=== PATIENT | female | born 1965 | race Caucasian/White ===

== ENCOUNTER → 2019-02-22 10:44 | Outpatient (CLI) | payer OTHER, SELFPAY ==
--- NOTE | 2019-02-22 10:48 | DI.RAD.S_ITS ---
PROCEDURE: XR KNEE LT 3V INDICATIONS: l knee pain TECHNIQUE: 3 views of the knee were acquired. COMPARISON: None. FINDINGS: Bones: No fractures or dislocations. No suspicious bony lesions. An enthesophyte at the quadriceps tendon insertion is present. Soft tissues: There is a small joint effusion. No suspicious soft tissue calcifications. IMPRESSION: No acute osseous abnormality or significant degenerative changes of the left knee. Dictated by: Scott Aguirre M.D. on 02/22/2019 at 10:32 Approved by: Scott Aguirre M.D. on 02/22/2019 at 10:33
== END ==
PROVIDERS: PCP Family Medicine; Visit Provider Physician Assistant
DX: M25.562 Pain in left knee (principal)
CPT/HCPCS: 73562

== ENCOUNTER 2019-05-01 18:44 | Observation (INO) | payer OTHER, SELFPAY ==
[2019-05-01 18:49] VITALS: BP 158/97; PULSE 90; RESP 17; TEMP 36.8; O2SAT 100; BMI 25.5
--- NOTE | 2019-05-01 19:15 | ED.ABDPAIN ---
HPI - Abdominal Pain General Chief Complaint: Abdominal Pain Stated Complaint: diverticulitis lots of pain Time Seen by Provider: 05/01/19 19:08 Source: patient Mode of arrival: Ambulatory Limitations: no limitations History of Present Illness HPI narrative: 53-year-old female here for evaluation of left-sided abdominal pain and cramping. She has a history of diverticulitis. States this feels like diverticulitis. She has never had surgery for this in the past. States the symptoms started yesterday of a can on worse today. 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 Talked with her employer who prescribed her antibiotics. States she took those this morning but vomited afterwards. Since then has had nausea and vomiting and dry heaving worsening pain. Also is having some bloody stool with mucus. No urinary symptoms. Related Data Home Medications Medication Instructions Recorded Confirmed clonazepam 1 mg PO #0 08/15/17 02/22/19 risperidone [Risperdal] 0.25 mg PO #0 08/15/17 02/22/19 Previous Rx's Medication Instructions Recorded fluoxetine [Prozac] 40 mg PO QDAY #90 cap 07/02/17 Allergies Allergy/AdvReac Type Severity Reaction Status Date / Time sulfamethoxazole AdvReac Mild N/V Verified 05/01/19 18:49 [From Bactrim] trimethoprim [From Bactrim] AdvReac Mild N/V Verified 05/01/19 18:49 Review of Systems Constitutional Constitutional: Reports fatigue, Reports fever(s) and Reports malaise Cardiovascular Cardiovascular: Denies chest pain and Denies dyspnea Respiratory Respiratory: Denies dyspnea Gastrointestinal Gastrointestinal: Reports abdominal pain, Reports change in stool character, Reports nausea and Reports vomiting Genitourinary Genitourinary: Denies dysuria and Denies vaginal discharge Musculoskeletal Musculoskeletal: Denies myalgias and Denies arthralgias Integumentary/Breasts Skin/Breast: Denies lesions and Denies rash Neurologic Neurologic: Denies behavioral changes Psychiatric Psychiatric: Denies behavioral changes Endocrine Endocrine: Reports fatigue Hematologic/Lymphatic Hematologic/Lymphatic: Denies easy bleeding and Denies easy bruising Patient History Medical History Depression (11/05/13) Diverticulitis (Inactive) Social History Smoking Status: Never smoker alcohol intake frequency: 0-2 drinks per day Substance Use Type: does not use Exam Initial Vital Signs Initial Vital Signs: Vital Signs Temperature 98.3 F 05/01/19 18:49 Pulse Rate 90 05/01/19 18:49 Respiratory Rate 17 05/01/19 18:49 Blood Pressure 158/97 H 05/01/19 18:49 Pulse Oximetry 100 05/01/19 18:49 Const General: cooperative and No comfortable (Uncomfortable) Orientation: alert, awake and oriented x3 HENMT Head: normal to inspection and normocephalic Resp Effort & Inspection: normal respiratory effort Auscultation: clear to auscultation bilaterally Cardio Rate: regular rate Rhythm: regular rhythm GI Inspection: non-distended Palpation: soft and tender (Left abdomen with rebound) Skin Lesions: no lesions Rashes: no rashes Neuro General: alert, awake and oriented x3 Cognition: normal cognition Speech: speech normal Extrem General: normal to inspection and capillary refill normal Psych Appearance: grossly normal and well kempt Course Orders Ordered: ED Orders 05/01/19 19:15 CT abdomen pelvis w con Stat 05/01/19 19:36 Complete Blood Count AUTO DIFF Stat Comprehensive Metabolic Panel Stat Lactate (Lactic Acid) Stat Lipase Stat 05/01/19 20:50 EKG-12 Lead Stat Hydromorphone HCl (Dilaudid) 1 mg IV Q6HR PRN PRN Reason: Pain, Severe (7-10) Ciprofloxacin (Cipro) 400 mg in 200 mls @ 200 mls/hr IV NOW [facility] Last Infusion: 05/01/19 22:30 Dose: 200 mls/hr Documented by: Admin: 05/01/19 21:26 Dose: 200 mls/hr Documented by: ENID Sodium Chloride (Normal Saline 0.9%) 1,000 mls @ 125 mls/hr IV CONT ANDREW Last Admin: 05/01/19 23:30 Dose: 125 mls/hr Documented by: SARAH Ciprofloxacin (Cipro) 400 mg in 200 mls @ 200 mls/hr IV NOW [facility] Metronidazole (Flagyl) 250 mg in 50 mls @ 100 mls/hr IV Q6H [facility] Naloxone HCl (Narcan) 0.2 mg IV Q2MIN PRN PRN Reason: Opiate Reversal Ondansetron HCl (Zofran) 4 mg IV Q6HR ANDREW Discontinued Medications Hydromorphone HCl (Dilaudid) 1 mg IV NOW ONE Stop: 05/01/19 19:15 Last Admin: 05/01/19 19:57 Dose: 1 mg Documented by: ENID Hydromorphone HCl (Dilaudid) 0.5 mg IV NOW ONE Stop: 05/01/19 20:58 Last Admin: 05/01/19 21:05 Dose: 0.5 mg Documented by: ENID Sodium Chloride (Normal Saline 0.9%) 1,000 mls @ 1,000 mls/hr IV BOLUS ONE Stop: 05/01/19 20:13 Last Infusion: 05/01/19 20:59 Dose: 0 mls/hr Documented by: Admin: 05/01/19 19:57 Dose: 1,000 mls/hr Documented by: ENID Metronidazole (Flagyl) 500 mg in 100 mls @ 100 mls/hr IV NOW ONE Stop: 05/01/19 21:56 Last Infusion: 05/01/19 22:10 Dose: 0 mls/hr Documented by: Admin: 05/01/19 21:05 Dose: 100 mls/hr Documented by: ENID Sodium Chloride (Normal Saline 0.9%) 1,000 mls @ 125 mls/hr IV CONT ANDREW Ondansetron HCl (Zofran) 4 mg IV NOW ONE Stop: 05/01/19 19:15 Last Admin: 05/01/19 19:57 Dose: 4 mg Documented by: ENID Ondansetron HCl (Zofran) 4 mg IV NOW ONE Stop: 05/01/19 22:24 Last Admin: 05/01/19 22:27 Dose: 4 mg Documented by: ENID Vital Signs Vital signs: Vital Signs - 8 hr 05/01/19 18:49 05/01/19 21:17 Temperature 98.3 F 99.4 F Pulse Rate 90 70 Respiratory Rate 17 20 Blood Pressure 158/97 H Blood Pressure [Right Arm] 132/88 Pulse Oximetry 100 MDM - Abdominal Pain Lab Data Attestation: I reviewed the patient's lab results. Result diagrams: 05/01/19 19:36 05/01/19 19:36 Labs: Lab Results 1105/01/19 05/01/19 Range/Units 19:36 19:36 19:36 WBC 9.1 (4.5-11.0) X10^3/uL RBC 4.41 (4.0-5.2) X10^6/uL Hgb 14.5 (12.0-16.0) g/dL Hct 42.4 (36-46) % MCV 96.2 (80-100) fL MCH 32.8 (26-34) PG MCHC 34.1 (30-36) % RDW 12.7 (11.6-14.8) % Plt Count 153 (150-400) X10^3/uL Neut % (Auto) 75.4 H (50-75) % Lymph % (Auto) 13.3 L (25-40) % Jasper % (Auto) 9.5 (3-14) % Eos % (Auto) 0.8 L (2-4) % Baso % (Auto) 1.0 (0-2) % Neut # (Auto) 6800 (7492-7626) /uL Lymph # (Auto) 1200 (5252-5901) /uL Jasper # (Auto) 900 (0-900) /uL Eos # (Auto) 100 (0-450) /uL Baso # (Auto) 100 (0-100) /uL Sodium 140 (137-145) mmol/L Potassium 3.7 (3.4-5.1) mmol/L Chloride 108 H (98-107) mmol/L Carbon Dioxide 23 (22-32) mmol/L BUN 13 (7-17) mg/dL Creatinine 0.80 (0.52-1.04) mg/dL Estimated GFR > 60.0 (>60) mL/min BUN/Creatinine Ratio 16.3 (6-22) Glucose 114 H (70-100) mg/dL Lactate 2.7 H (0.7-2.1) mmol/L Calcium 9.8 (8.4-10.2) mg/dL Total Bilirubin 1.0 (0.2-1.3) mg/dL AST 31 (14-36) IU/L ALT 22 (<35) IU/L Alkaline Phosphatase 82 (38-126) U/L Total Protein 7.4 (6.3-8.2) g/dL Albumin 4.5 (3.5-5.0) g/dL Globulin 2.9 (1.7-4.1) g/dL Albumin/Globulin Ratio 1.6 (1.0-2.8) Lipase 135 (23-300) U/L Point of care testing: Urine Dip Bedside Urine Glucose Negative Bedside Urine Bilirubin - Negative Bedside Urine Ketone +/- 5 Urine Specific [place] 1.005 Bedside Urine Occult Blood - Negative Bedside Urine pH 8.0 Bedside Urine Protein - Negative Bedside Urine Urobilinogen - Negative Bedside Urine Nitrite - Negative Bedside Urine Leukocytes +/- [address] scan - abdomen: Radiologist's impression: [address] [address] [address] Scan Report Signed Patient: Kamila Chawla [facility]#: [id number] : 1965Acct:[id number] Age/Sex: 53 / FDate of Service: 05/01/19 Loc: ED Accession Number: [id number] Procedure: CT abdomen pelvis w con Ordering Provider: Shravan Pak D.O. PROCEDURE: CT ABDOMEN PELVIS W CON INDICATIONS: Left-sided abdominal pain TECHNIQUE: After the administration of intravenous contrast, 5 mm thick sections acquired from the diaphragm to the symphysis. 5 mm coronal and sagittal reformats were acquired. For radiation dose reduction, the following was used: automated exposure control, adjustment of mA and/or kV according to patient size. COMPARISON: [facility], CT, ABDOMEN/PELVIS WITH CONTRAST, 03/27/2016, 20:51. FINDINGS: Image quality: Excellent. ABDOMEN: Lung bases: Lung bases are clear. Heart size is normal. Solid organs: Liver is normal in size and enhancement. Gallbladder is unremarkable. Biliary system is non dilated. Pancreas enhances normally. Spleen is normal in size and enhancement. No adrenal nodules. Kidneys demonstrate normal size and enhancement, without hydronephrosis. Peritoneum and bowel: Moderate distal sigmoid colon acute diverticulitis. This is in a similar location to the diverticulitis seen on CT from 2016. There is mild to moderate diverticulosis. The inflamed area demonstrates bowel wall thickening. No pneumoperitoneum. Small volume of free fluid in the pelvis. No loculated fluid collection to suggest abscess. Nodes and vessels: No retroperitoneal or mesenteric adenopathy by size criteria. Aorta and inferior vena cava are normal in size. Miscellaneous: Tiny fat-containing periumbilical hernia. PELVIS: Genitourinary: Bladder wall thickness is normal. Uterus is unremarkable. Miscellaneous: No inguinal hernias or adenopathy. Bones: No suspicious bony lesions. Mild degenerative change most pronounced at the L4-L5 level. No vertebral body compression fractures. IMPRESSION: 1. Moderate uncomplicated acute sigmoid colon diverticulitis. There is a bowel wall thickening. -Recommend colonoscopy on resolution of acute inflammatory change to exclude underlying mass. 2. No abscess. Small volume of free fluid. Comment: Findings were discussed with Shravan Pak M.D. at the time of dictation. Dictated by: Humberto Johnson M.D. on 05/01/2019 at 20:42 Approved by: Humberto Johnson M.D. on 05/01/2019 at 20:50 MDM Narrative Medical decision making narrative: Patient with left-sided diverticulitis seen on the CT scan. Does have slightly elevated lactate but a normal white blood cell count. Her physical exam is consistent with diverticulitis. Given her discomfort and her nausea and vomiting she was given IV antibiotics here in the ER. There is no signs of surgical pathology on the CT scan. I do feel given her vomiting that she should be admitted for IV antibiotics. Discussed the case with ARLETTE Lomas night hospitalist who will admit for further evaluation treatment. Discussed the diagnosis with the patient and the need for admission the expressed understanding and agreement. Discharge Plan Departure Patient Disposition: Admitted as Observation Clinical Impression: Diverticulitis Qualifiers: Diverticulitis site: large intestine Diverticulitis bleeding: without bleeding Diverticulitis complication: without perforation or abscess Qualified Code(s): K57.32 - Diverticulitis of large intestine without perforation or abscess without bleeding Discharge Date/Time: 05/01/19 22:30 Admit Date/Time: 05/01/19 21:55 Admit Provider: Abi Lomas
[2019-05-01 19:54] LABS: Add Manual Diff / Slide Review NO; Basophils Absolute Auto 100 /uL (0-100); Eosinophils Absolute Auto 100 /uL (0-450); Eosinophils Percent Auto 0.8 % (2-4); Hematocrit 42.4 % (36-46); Hemoglobin 14.5 g/dL (12.0-16.0); Lymphocytes Absolute Auto 1200 /uL (1100-4500); Lymphocytes Percent Auto 13.3 % (25-40); Mean Corpuscular HGB Conc 34.1 % (30-36); Mean Corpuscular Hemoglobin 32.8 PG (26-34); Mean Corpuscular Volume 96.2 fL (80-100); Monocytes Absolute Auto 900 /uL (0-900); Monocytes Percent Auto 9.5 % (3-14); Neutrophils Absolute Auto 6800 /uL (1500-7000); Neutrophils Percent Auto 75.4 % (50-75); Platelet Count 153 X10^3/uL (150-400); Red Blood Cell Count 4.41 X10^6/uL (4.0-5.2); Red Cell Distribution Width 12.7 % (11.6-14.8); White Blood Cell Count 9.1 X10^3/uL (4.5-11.0)
[2019-05-01] MEDS: HYDROMORPHONE 1 MG INJ IV (19:57)
[2019-05-01] MEDS: ONDANSETRON 4 MG/2 ML INJ IV ×2 (19:57→22:27)
[2019-05-01] MEDS: SODIUM CHLORIDE 0.9% 1,000 ML 1000 ML IV (19:57)
[2019-05-01 20:06] LABS: Lactate (Lactic Acid) 2.7 mmol/L (0.7-2.1)
[2019-05-01 20:07] LABS: Alanine Aminotransferase 22 IU/L (<35); Albumin 4.5 g/dL (3.5-5.0); Albumin Globulin Ratio 1.6 (1.0-2.8); Alkaline Phosphatase 82 U/L (38-126); Aspartate Aminotransferase 31 IU/L (14-36); BUN Creatinine Ratio 16.3 (6-22); Blood Urea Nitrogen 13 mg/dL (7-17); Calcium 9.8 mg/dL (8.4-10.2); Carbon Dioxide 23 mmol/L (22-32); Chloride 108 mmol/L (98-107); Estimated Glomerular Filt Rate > 60.0 mL/min (>60); Globulin 2.9 g/dL (1.7-4.1); Glucose 114 mg/dL (70-100); HEMOLYSIS 39 (0-50); Lipase 135 U/L (23-300); Potassium 3.7 mmol/L (3.4-5.1); Sodium 140 mmol/L (137-145); Total Protein 7.4 g/dL (6.3-8.2)
[2019-05-01] MEDS: metroNIDAZOLE 500 MG/100 ML PIGGYBACK 100 MG IV (21:05)
[2019-05-01] MEDS: HYDROMORPHONE 0.5 MG INJ IV (21:05)
[2019-05-01 21:17] VITALS: BP 132/88; PULSE 70; RESP 20; TEMP 37.4
[2019-05-01] MEDS: CIPROFLOXACIN 400 MG/200 ML PIGGYBACK 200 MG IV (21:26)
[2019-05-01 21:50] LABS: Reflexed Lactate in 2 Hours Y
[2019-05-01 22:51] VITALS: BP 123/82; PULSE 99; RESP 21; TEMP 38.1; O2SAT 97
--- NOTE | 2019-05-01 22:52 | PC.NURSE ---
1045-Patient arrives from ER, alert and oriented, ambulated to bed w/standby assist. shoes and pants placed in belongings bag. 1053-MD at bedside.
[2019-05-01 23:08] VITALS: BP 123/83; PULSE 82; RESP 16; TEMP 37.7; O2SAT 96
[2019-05-01] MEDS: SODIUM CHLORIDE 0.9% 1,000 ML 125 ML IV (23:30)
[2019-05-01 23:33] VITALS: O2SAT 96
[2019-05-02] VITALS (7 sets, daily range): BP systolic 88–122; BP diastolic 50–75; PULSE 77–91; RESP 16–18; TEMP 37–38.8; O2SAT 96–97; BMI 26.2
--- NOTE | 2019-05-02 00:02 | P.HP_ITS ---
History of Present Illness History of Present Illness Date Patient Seen: 05/01/19 Time Patient Seen: 22:00 Chief complaint: diverticulitis lots of pain Narrative: Kamila Chawla is a pleasant 53 y.o. female with a history of diverticulitis and PTSD presents today with significant abdominal pain. She states she has had this for 6 previous episodes, exacerbated by stress. She describes the pain usually preceeding the passage of stool or air with a needle like sensation in the left lower quadrant, then becoming diffuse bilaterally. It is relieved when she passes stool or gas. Stated today, she started a course of cipro and flagyl and was not able to keep it down. She had a subjective fever, was unable to stay warm, denies chest pain, shortness of breath, had nausea, vomiting and dry heaves, she states a history of grief associated with her who committed suicide 8 months ago. 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 Patient History Medical History Depression (11/05/13) Diverticulitis (Inactive) Family & Social History Safety & Behavioral: Feels Safe in Current Yes Environment Been Physically Hurt or No Threatened By a Person Tobacco & Substance use: Smoking Status Never smoker alcohol intake frequency 0-2 drinks per day Substance Use Type does not use Meds Home Medications and Allergies Home Medications Medication Instructions Recorded Confirmed Type fluoxetine [Prozac] 40 mg PO QDAY #90 cap 07/02/17 02/22/19 Rx clonazepam 1 mg PO #0 08/15/17 02/22/19 History risperidone [Risperdal] 0.25 mg PO #0 08/15/17 02/22/19 History Allergies Allergy/AdvReac Type Severity Reaction Status Date / Time sulfamethoxazole AdvReac Mild N/V Verified 05/01/19 18:49 [From Bactrim] trimethoprim [From Bactrim] AdvReac Mild N/V Verified 05/01/19 18:49 Review of Systems Review of Systems ROS Unobtainable: All systems reviewed & are unremarkable except as noted in HPI and below Exam Vital Signs (past 8 hours): - 05/01/19 18:49 05/01/19 21:17 05/01/19 22:51 Temperature 98.3 F 99.4 F 100.5 F H Pulse Rate 90 70 99 H Respiratory Rate 17 20 21 Blood Pressure 158/97 H 123/82 Blood Pressure [Right Arm] 132/88 Pulse Oximetry 100 97 05/01/19 23:33 Temperature Pulse Rate Respiratory Rate Blood Pressure Blood Pressure [Right Arm] Pulse Oximetry 96 Oxygen Delivery Method Room Air Narrative Exam Narrative: Gen: Alert, oriented, well-developed 53 y.o. female, appears uncomfortable HEENT: normocephalic, atraumatic, conjunctiva clear, sclera non-icteric, oral mucosa pink and moist Neck: supple, full ROM Resp: Lungs CTA, non-labored breathing CV: RRR, no murmur or rubs Abd: soft, diffusely tender, normoactive BTs Skin: no lesions or rashes, dry and intact Neuro: Alert and oriented X 4 w/no focal deficits Extremities: moves all 4 extremities, is ambulatory, negative Kelton?s sign Psyche: mildly labile, otherwise normal mood and affect. Objective Labs Result Diagrams: 05/01/19 19:36 05/01/19 19:36 Labs: Laboratory Results - last 24 hr 05/01/19 05/01/19 05/01/19 19:36 19:36 19:36 WBC 9.1 RBC 4.41 Hgb 14.5 Hct 42.4 MCV 96.2 MCH 32.8 MCHC 34.1 RDW 12.7 Plt Count 153 Neut % (Auto) 75.4 H Lymph % (Auto) 13.3 L Sebastian % (Auto) 9.5 Eos % (Auto) 0.8 L Baso % (Auto) 1.0 Neut # (Auto) 6800 Lymph # (Auto) 1200 Sebastian # (Auto) 900 Eos # (Auto) 100 Baso # (Auto) 100 Sodium 140 Potassium 3.7 Chloride 108 H Carbon Dioxide 23 BUN 13 Creatinine 0.80 Estimated GFR > 60.0 BUN/Creatinine Ratio 16.3 Glucose 114 H Lactate 2.7 H Calcium 9.8 Total Bilirubin 1.0 AST 31 ALT 22 Alkaline Phosphatase 82 Total Protein 7.4 Albumin 4.5 Globulin 2.9 Albumin/Globulin Ratio 1.6 Lipase 135 05/01/19 22:19 WBC RBC Hgb Hct MCV MCH MCHC RDW Plt Count Neut % (Auto) Lymph % (Auto) Sebastian % (Auto) Eos % (Auto) Baso % (Auto) Neut # (Auto) Lymph # (Auto) Sebastian # (Auto) Eos # (Auto) Baso # (Auto) Sodium Potassium Chloride Carbon Dioxide BUN Creatinine Estimated GFR BUN/Creatinine Ratio Glucose Lactate 1.0 Calcium Total Bilirubin AST ALT Alkaline Phosphatase Total Protein Albumin Globulin Albumin/Globulin Ratio Lipase Assessment & Plan Assessment & Plan narrative: Kamila Chawla will be placed in observation for IV antibiotic administration for a diverticulitis flare. 1. Acute diverticulitis present on admission * She will be placed on IV cipro 400 mg bid and metronidiazole 500 mg q 6 hours * Clear liquid diet, if she does not tolerate, she will need to be NPO * Advance as tolerated, if able to take po meds in the next 1-2 days, will discharge * Pain control with IV dilaudid 1 mg prn 2. Sleep disorder * Continue home dose of clonazapam 1 mg at hs. Patient is placed in observation as her stay is not anticipated to exceed 2 midnights. FEN: IV NS at 125 ml/hour,clears, chemistries in the am. VTE Prophylaxis: bilateral SCDs Disposition: likely discharge to home Code status: Full code Admission time: 55 minutes Meds reconciled: Yes Time Spent With Patient Time with patient: 15-24 minutes Quality VTE Deep Vein Thrombosis/Pulmonary Embolism Present on Admission: No
[2019-05-02] MEDS: HYDROMORPHONE 1 MG INJ IV ×4 (00:27→21:48)
[2019-05-02] MEDS: metroNIDAZOLE 250 MG/50 ML PIGGYBACK 100 MG IV (05:08)
[2019-05-02 05:32] LABS: Add Manual Diff / Slide Review NO; Basophils Absolute Auto 0 /uL (0-100); Basophils Percent Auto 0.2 % (0-2); Eosinophils Absolute Auto 0 /uL (0-450); Eosinophils Percent Auto 0.3 % (2-4); Hematocrit 34.7 % (36-46); Hemoglobin 12.1 g/dL (12.0-16.0); Lymphocytes Absolute Auto 1300 /uL (1100-4500); Lymphocytes Percent Auto 16.6 % (25-40); Mean Corpuscular HGB Conc 34.9 % (30-36); Mean Corpuscular Hemoglobin 33.6 PG (26-34); Mean Corpuscular Volume 96.1 fL (80-100); Monocytes Absolute Auto 900 /uL (0-900); Monocytes Percent Auto 11.6 % (3-14); Neutrophils Absolute Auto 5500 /uL (1500-7000); Neutrophils Percent Auto 71.3 % (50-75); Platelet Count 123 X10^3/uL (150-400); Red Blood Cell Count 3.62 X10^6/uL (4.0-5.2); Red Cell Distribution Width 12.9 % (11.6-14.8); White Blood Cell Count 7.7 X10^3/uL (4.5-11.0)
[2019-05-02 05:45] LABS: BUN Creatinine Ratio 11.1 (6-22); Blood Urea Nitrogen 10 mg/dL (7-17); Calcium 8.5 mg/dL (8.4-10.2); Carbon Dioxide 25 mmol/L (22-32); Chloride 108 mmol/L (98-107); Estimated Glomerular Filt Rate > 60.0 mL/min (>60); Glucose 105 mg/dL (70-100); HEMOLYSIS < 15 (0-50); Potassium 3.7 mmol/L (3.4-5.1); Sodium 139 mmol/L (137-145)
[2019-05-02] MEDS: SODIUM CHLORIDE 0.9% 1,000 ML 1000 ML IV ×2 (08:33→10:45)
--- NOTE | 2019-05-02 09:16 | PC.NURSE ---
Addendum entered by Estefany Nieves R.N. 05/02/19 13:17: 2nd NS 1 litre bolus completed at 1300, bolus slightly delayed due to timing of antibiotics. At 1250, BP taken for 122/72, pulse 80. Pt had another scant blood-tinged mucous passed through rectum. Total of 2 for this shift. Addendum entered by Estefany Nieves R.N. 05/02/19 10:38: Per Dr. Savage Verbal order in pt's room at 1025, keep NPO. Aware of scant mucous passed through rectum that is blood tinged. Pt remains asymptomatic with ambulation. Does c/o feeling cold/chilled. Addendum entered by Estefany Nieves R.N. 05/02/19 09:26: At 0825, Dr. Diez also aware of BP of 93/54 this AM. The documented BP of 88/50 was also reported by night RN that the pt had her BP taken on her upper arm while lying on her side. Will continue to monitor. Original Note: Day Shift- Update given to Dr. Diez at 0825 regarding 0750 Oral Temp of 100.5, no new orders at this time. Request to change schedule Zofran to PRN as pt c/o mild intermittent nausea previously refusing anti-emetics. At 0840, IVF bolus NS 1 litre X1 started per Dr. Diez eMAR order and verbal order at 0825. Pt does c/o feeling cold, chills, LLQ abd pain aching 4-5/10 with tenderness to LLQ abd more than to across entire abd. Pt states having abd bloating. Bowel tones present, quiet but frequent, passing flatus. During night having scant mucous BM. States having intermittent needle-like sharp pain to LLQ abd when gas moving through. Pt originally ordered Clear liquid diet for breakfast, pt states not wanting anything but small amount of water. Per Dr. Diez at 0915, pt is to remain NPO awaiting surgical consult. Pt refused Calf SCD's, encouraged ankle pump exercises. OOB with SBA with steady gait, denies dizziness or light-headedness. No other voiced concerns, Call light within reach. Pt feels very tired this AM, states is being awoken every hour or two. Explained morning time can be busier with assessments and will try to give pt rest periods.
[2019-05-02] MEDS: SODIUM CHLORIDE 0.9% 1,000 ML 125 ML IV ×2 (09:37→21:54)
--- NOTE | 2019-05-02 09:38 | P.CONS_ITS ---
History of Present Illness Consult details Date Patient Seen: 05/02/19 Time Patient Seen: 10:41 Chief complaint: diverticulitis lots of pain Reason for consult: Diverticulitis Requesting provider: Tammie Diez Narrative: This is a 53-year-old woman with history of sigmoid diverticulitis, with at least 5 episodes in the past, requiring antibiotic treatment. She started having a new episode a few days ago, and yesterday it became quite severe. She started vomiting which prompted her to come into the ER. In the ER she had a CT scan which showed non complicated sigmoid diverticulitis. She has received 1 dose of Cipro and 3 doses of Flagyl. She continues to have significant focal right lower quadrant pain, chills, and low-grade temps. Her last fever was 100.5 this morning. Her blood pressure is on the lower side with systolics in the 90s. However she is not significantly tachycardic. She is pas sing gas and some thin mucousy stool. She denies dysuria, myalgias, or subjective fevers. ROS: Ten system review is unremarkable other than as mentioned in the HPI. PE: GENERAL: Lying in bed under multiple blankets, rigoring. Appears stated age. Answers questions promptly and appropriately. Vital signs noted. HENT: Normocephalic, atraumatic. Hearing intact. Oral mucosa is pink and moist. EYES: Conjunctiva pink, sclera white, no periorbital swelling. CARDIOVASCULAR: Regular rate. No pedal edema. RESPIRATORY: Normal respiratory rate, breathing comfortably on room air. GASTROINTESTINAL: Abdomen soft and non-distended; Focal TTP in LLQ; no diffuse peritoneal signs GENITALURINARY: No flank tenderness. MUSCULOSKELETAL: Equal tone and mass bilaterally. SKIN: Warm, dry, soft, appropriate color for ethnicity. No other lesions, rashes, or wounds. NEURO: Alert and Oriented X 3. No gross sensory deficits, or cognitive issues. PSYCH: Appropriate affect and mood. [facility] Medical History Depression (11/05/13) Diverticulitis (Inactive) Social History household members: family Smoking Status: Never smoker Meds Home Medications and Allergies Home Medications Medication Instructions Recorded Confirmed Type clonazepam 1 mg PO BEDTIME #0 08/15/17 05/02/19 History Allergies Allergy/AdvReac Type Severity Reaction Status Date / Time sulfamethoxazole AdvReac Mild N/V Verified 05/01/19 18:49 [From Bactrim] trimethoprim [From Bactrim] AdvReac Mild N/V Verified 05/01/19 18:49 Exam Vital Signs (past 8 hours): - 05/02/19 03:23 05/02/19 07:55 05/02/19 08:00 Temperature 98.9 F 100.5 F H Pulse Rate 83 91 H Respiratory Rate 16 16 Blood Pressure 88/50 L 93/54 L Pulse Oximetry 96 97 97 Oxygen Delivery Method Room Air Oxygen Flow Rate 0 Objective Labs Result Diagrams: 05/02/19 05:03 05/02/19 05:03 Labs: Laboratory Results - last 24 hr 05/01/19 05/01/19 05/01/19 19:36 19:36 19:36 WBC 9.1 RBC 4.41 Hgb 14.5 Hct 42.4 MCV 96.2 MCH 32.8 MCHC 34.1 RDW 12.7 Plt Count 153 Neut % (Auto) 75.4 H Lymph % (Auto) 13.3 L [place] % (Auto) 9.5 Eos % (Auto) 0.8 L Baso % (Auto) 1.0 Neut # (Auto) 6800 Lymph # (Auto) 1200 [place] # (Auto) 900 Eos # (Auto) 100 Baso # (Auto) 100 Sodium 140 Potassium 3.7 Chloride 108 H Carbon Dioxide 23 BUN 13 Creatinine 0.80 Estimated GFR > 60.0 BUN/Creatinine Ratio 16.3 Glucose 114 H Lactate 2.7 H Calcium 9.8 Total Bilirubin 1.0 AST 31 ALT 22 Alkaline Phosphatase 82 Total Protein 7.4 Albumin 4.5 Globulin 2.9 Albumin/Globulin Ratio 1.6 Lipase 135 Nasal Screen MRSA (PCR) 05/01/19 05/02/19 05/02/19 22:19 01:50 05:03 WBC 7.7 RBC 3.62 L Hgb 12.1 Hct 34.7 L MCV 96.1 MCH 33.6 MCHC 34.9 RDW 12.9 Plt Count 123 L Neut % (Auto) 71.3 Lymph % (Auto) 16.6 L [place] % (Auto) 11.6 Eos % (Auto) 0.3 L Baso % (Auto) 0.2 Neut # (Auto) 5500 Lymph # (Auto) 1300 [place] # (Auto) 900 Eos # (Auto) 0 Baso # (Auto) 0 Sodium Potassium Chloride Carbon Dioxide BUN Creatinine Estimated GFR BUN/Creatinine Ratio Glucose Lactate 1.0 Calcium Total Bilirubin AST ALT Alkaline Phosphatase Total Protein Albumin Globulin Albumin/Globulin Ratio Lipase Nasal Screen MRSA (PCR) Negative for mrsa 05/02/19 05:03 WBC RBC Hgb Hct MCV MCH MCHC RDW Plt Count Neut % (Auto) Lymph % (Auto) [place] % (Auto) Eos % (Auto) Baso % (Auto) Neut # (Auto) Lymph # (Auto) [place] # (Auto) Eos # (Auto) Baso # (Auto) Sodium 139 Potassium 3.7 Chloride 108 H Carbon Dioxide 25 BUN 10 Creatinine 0.90 Estimated GFR > 60.0 BUN/Creatinine Ratio 11.1 Glucose 105 H Lactate Calcium 8.5 Total Bilirubin AST ALT Alkaline Phosphatase Total Protein Albumin Globulin Albumin/Globulin Ratio Lipase Nasal Screen MRSA (PCR) Assessment & Plan Assessment and plan (1) Diverticulitis: Qualifiers: Diverticulitis bleeding: without bleeding Diverticulitis complication: without perforation or abscess Diverticulitis site: large intestine Qualified Code(s): K57.32 - Diverticulitis of large intestine without perforation or abscess without bleeding Current visit: Yes Status: Acute Assessment & Plan narrative: This is a 53 yo woman with history of diverticulitis x 5. Now admitted with new onset uncomplicated diverticulitis. She has received one dose of cipro and three doses of flagyl, without much improvement. She is currently stable, but her mild hypotension and rigors are concerning. She had plans for elective surgery with Dr. Weeks at [facility] sometime in the future, which we will still hopefully be able to get her to. However, I have discussed with her the potential for a progressive worsening c ourse, which may require more aggressive treatment on this admission, which may include increasing antibiotics, repeating CT scan, and possibly surgical intervention. Plan: Change dosing of cipro to Q12 and give another dose now If no clinical signs of improvement, switch to zosyn If no improvement with zosyn, repeat CT scan with IV contrast, and consider diagnostic laparoscopy Flagyl can be Q8 Keep NPO, IV fluids Pain meds PRN ok for DVT ppx closely monitor BP, HR 40 minutes were spent face to face with the patient. More than 50% of the time was spent in counseling and co-ordination of care regarding her diverticulitis history, plans for elective surgery, and potential for acute worsening and need for aggressive treatment on this admission. Time Spent With Patient Time with patient: Greater than 35 minutes
--- NOTE | 2019-05-02 10:10 | PM.PN.1 ---
Subjective Subjective Date Patient Seen: 05/02/19 Interval history: Kamila Chawla is a pleasant 53-year-old female with a past medical history significant for 6 previous episodes of diverticulitis who presented with abrupt onset left-sided abdominal pain with intractable nausea and vomiting. The patient is lying in bed febrile with mild rigors. She has left-sided lower quadrant pain with mild guarding. She has intermittent nausea but has not had recurrence of vomiting. She has low normal BP and ordered another 2 L IV fluid boluses. She is passing flatus and has had bloody loose stool. She denies headache, shortness of breath, chest pain, dysuria, diarrhea or constipation. She is voiding and eliminating without difficulty. She is up minimally, ambulating without assistance. Exam Vital Signs (past 8 hours): - 05/02/19 03:23 05/02/19 07:55 05/02/19 08:00 Temperature 98.9 F 100.5 F H Pulse Rate 83 91 H Respiratory Rate 16 16 Blood Pressure 88/50 L 93/54 L Pulse Oximetry 96 97 97 Oxygen Delivery Method Room Air Oxygen Flow Rate 0 Narrative Exam Narrative: General: Middle aged female lying in bed and in no acute distress, appears acutely ill with mild rigors, well-developed, well-nourished, appropriately interactive. HEENT: Normocephalic, atraumatic. External ears without defect. Pupils equal, round, and reactive to light. Anicteric sclerae, moist conjunctivae, and no lid lag. Oropharynx free of erythema and cobble stoning with moist mucosa. Neck: Supple with full range of motion. No lymphadenopathy or thyromegaly. Cardiovascular: Regular rate and rhythm without murmurs, rubs, or gallops appreciated Pulmonary: Clear to auscultation bilaterally without crackles, wheezes, or rhonchi. Normal respiratory effort with no use of accessory muscles. Abdomen: Soft, bowel sounds present, diffuse tenderness especially in LLQ with voluntary guarding, nondistended. No hepatosplenomegaly or masses appreciated. Extremities: No clubbing, cyanosis, or edema. Skin: Normal temperature, turgor, and texture; no rash, ulcers, or subcutaneous nodules appreciated. Neurological: Cranial nerves grossly intact. Psychiatric: Depressed mood and normal affect. Tearful. Alert and oriented to person, place, and time. Objective Labs Result Diagrams: 05/02/19 17:55 05/02/19 05:03 Labs: Laboratory Results - last 24 hr 05/01/19 05/01/19 05/01/19 19:36 19:36 19:36 WBC 9.1 RBC 4.41 Hgb 14.5 Hct 42.4 MCV 96.2 MCH 32.8 MCHC 34.1 RDW 12.7 Plt Count 153 Neut % (Auto) 75.4 H Lymph % (Auto) 13.3 L [place] % (Auto) 9.5 Eos % (Auto) 0.8 L Baso % (Auto) 1.0 Neut # (Auto) 6800 Lymph # (Auto) 1200 [place] # (Auto) 900 Eos # (Auto) 100 Baso # (Auto) 100 Sodium 140 Potassium 3.7 Chloride 108 H Carbon Dioxide 23 BUN 13 Creatinine 0.80 Estimated GFR > 60.0 BUN/Creatinine Ratio 16.3 Glucose 114 H Lactate 2.7 H Calcium 9.8 Total Bilirubin 1.0 AST 31 ALT 22 Alkaline Phosphatase 82 Total Protein 7.4 Albumin 4.5 Globulin 2.9 Albumin/Globulin Ratio 1.6 Lipase 135 Nasal Screen MRSA (PCR) 05/01/19 05/02/19 05/02/19 22:19 01:50 05:03 WBC 7.7 RBC 3.62 L Hgb 12.1 Hct 34.7 L MCV 96.1 MCH 33.6 MCHC 34.9 RDW 12.9 Plt Count 123 L Neut % (Auto) 71.3 Lymph % (Auto) 16.6 L [place] % (Auto) 11.6 Eos % (Auto) 0.3 L Baso % (Auto) 0.2 Neut # (Auto) 5500 Lymph # (Auto) 1300 [place] # (Auto) 900 Eos # (Auto) 0 Baso # (Auto) 0 Sodium Potassium Chloride Carbon Dioxide BUN Creatinine Estimated GFR BUN/Creatinine Ratio Glucose Lactate 1.0 Calcium Total Bilirubin AST ALT Alkaline Phosphatase Total Protein Albumin Globulin Albumin/Globulin Ratio Lipase Nasal Screen MRSA (PCR) Negative for mrsa 05/02/19 05:03 WBC RBC Hgb Hct MCV MCH MCHC RDW Plt Count Neut % (Auto) Lymph % (Auto) [place] % (Auto) Eos % (Auto) Baso % (Auto) Neut # (Auto) Lymph # (Auto) [place] # (Auto) Eos # (Auto) Baso # (Auto) Sodium 139 Potassium 3.7 Chloride 108 H Carbon Dioxide 25 BUN 10 Creatinine 0.90 Estimated GFR > 60.0 BUN/Creatinine Ratio 11.1 Glucose 105 H Lactate Calcium 8.5 Total Bilirubin AST ALT Alkaline Phosphatase Total Protein Albumin Globulin Albumin/Globulin Ratio Lipase Nasal Screen MRSA (PCR) Assessment & Plan Assessment & Plan narrative: Kamila Chawla is a pleasant 53-year-old female with a past medical history significant for 6 previous episodes of diverticulitis who presented with abrupt onset left-sided abdominal pain with intractable nausea and vomiting. 1. Acute diverticulitis, present on admission. Active. -Patient reports this is her 6th flare since 2010. She is followed by GI at [facility], Dr. Hayes. -CT abdomen and pelvis with contrast demonstrated moderate uncomplicated acute sigmoid colon diverticulitis with bowel wall thickening and small volume of free fluid without abscess. Recommend colonoscopy on resolution of acute inflammatory change to exclude underlying mass. -WBC normal at 7.7 (patient had been on antibiotics outpatient. Continue to trend WBC and procalcitonin. Of note, blood cultures were not done in ED. -Continue ciprofloxacin 400 mg Iv every 12 hours and metronidiazole 500 mg IV every 6 hours. -Patient placed NPO for bowel rest. -Received 1 L bolus of normal saline x 1 in ED. Ordered another 2 L normal saline bolus for mild low normal BP. Continue IV fluid hydration with normal saline at 125 mL/hr. -Continue supportive care with pain control with hydromorphone 1 mg IV every 6 hours as needed and antiemetic with ondansetron 4 mg every 6 hours as needed. -Consulted general surgery, Dr. Danielle, for evaluation since patient has had 6 previous flares and is high risk of complication such as abscess or perforation. 2. Insomnia, chronic, present on admission. Stable. -Continue home clonazapam 1 mg daily at bedtime. Code status: Full code VTE Prophylaxis: bilateral SCDs Disposition: Patient likely to discharge to home after acute diverticulitis has been adequately treated and improving. Quality VTE Deep Vein Thrombosis/Pulmonary Embolism Present on Admission: No
[2019-05-02] MEDS: CIPROFLOXACIN 400 MG/200 ML PIGGYBACK 200 MG IV ×2 (10:47→21:51)
--- NOTE | 2019-05-02 11:05 | CM.DANOTE ---
Discharge Planning/Care Management DCP: assessment: case received, EMR reviewed. Discussed case in Team Rounds. Pt is a 53 year old female who admitted to care of hospitalist team last night. Payer: [facility] PCP: Kamila Fitzgerald Consulting: Dr. Borjas/[facility]. Pt has history of sigmoid diverticulitis and Dr. Diez stated that pt is planning to have a scheduled bowel resection within the next 6 weeks. She is currently being treated medically for acute diverticulitis. P: check in with pt as plan unfolds to assist with any d/c needs that may arise. CM Discharge Assessment Start: 05/02/19 11:03 Freq: Status: Active Protocol: Document 05/02/19 11:03 ITV (Rec: 05/02/19 11:05 ITV [id number]) Discharge Planning Assessment Advance Directives? No Advance Directives on File No History Provided By Medical Record Prior Living Arrangements House Household Members family Independent with ADL's Yes Is patient alert and oriented? Yes Comment pt works as a nurse at [employer] Review Status In Process
[2019-05-02] MEDS: metroNIDAZOLE 500 MG/100 ML PIGGYBACK 100 MG IV ×3 (12:58→23:58)
[2019-05-02] MEDS: ONDANSETRON 4 MG/2 ML INJ IV (18:01)
[2019-05-02] MEDS: ACETAMINOPHEN 325 MG TABLET 650 MG PO (18:02)
[2019-05-02 18:25] LABS: Add Manual Diff / Slide Review NO; Basophils Absolute Auto 0 /uL (0-100); Basophils Percent Auto 0.4 % (0-2); Eosinophils Absolute Auto 0 /uL (0-450); Eosinophils Percent Auto 0.3 % (2-4); Hematocrit 34.8 % (36-46); Hemoglobin 11.7 g/dL (12.0-16.0); Lymphocytes Absolute Auto 1100 /uL (1100-4500); Lymphocytes Percent Auto 15.6 % (25-40); Mean Corpuscular HGB Conc 33.6 % (30-36); Mean Corpuscular Hemoglobin 32.7 PG (26-34); Mean Corpuscular Volume 97.2 fL (80-100); Monocytes Absolute Auto 700 /uL (0-900); Monocytes Percent Auto 10.1 % (3-14); Neutrophils Absolute Auto 5300 /uL (1500-7000); Neutrophils Percent Auto 73.6 % (50-75); Platelet Count 105 X10^3/uL (150-400); Red Blood Cell Count 3.58 X10^6/uL (4.0-5.2); Red Cell Distribution Width 12.5 % (11.6-14.8); White Blood Cell Count 7.2 X10^3/uL (4.5-11.0)
--- NOTE | 2019-05-02 20:38 | PC.NURSE ---
Addendum entered by Coni Hernandez R.N. 05/02/19 22:43: 2148-VSS, PRN Dilaudid administered for 8/10 pain. 2299-No falls or injuries as of this note. no emesis. report to noc RN. Original Note: 1500-Received report, bedside safety checks done. assumed care of patient. Assessment completed, patient A&Ox4. 1799-tylenol administered for temp 101.4, Zofran administered for nausea. Ice pack to back of neck for comfort. 2037-Temp 98.6f Oral. Adequate pain control.
[2019-05-03] VITALS (9 sets, daily range): BP systolic 98–138; BP diastolic 53–80; PULSE 64–85; RESP 16–18; TEMP 36.4–37.4; O2SAT 95–99
[2019-05-03] MEDS: ACETAMINOPHEN 325 MG TABLET 650 MG PO ×2 (01:11→15:38)
[2019-05-03 05:19] LABS: Add Manual Diff / Slide Review NO; Basophils Absolute Auto 0 /uL (0-100); Basophils Percent Auto 0.3 % (0-2); Eosinophils Absolute Auto 0 /uL (0-450); Eosinophils Percent Auto 0.7 % (2-4); Hematocrit 32.4 % (36-46); Hemoglobin 11.2 g/dL (12.0-16.0); Lymphocytes Absolute Auto 1100 /uL (1100-4500); Lymphocytes Percent Auto 18.1 % (25-40); Mean Corpuscular HGB Conc 34.6 % (30-36); Mean Corpuscular Hemoglobin 33.5 PG (26-34); Mean Corpuscular Volume 96.9 fL (80-100); Monocytes Absolute Auto 600 /uL (0-900); Monocytes Percent Auto 10.2 % (3-14); Neutrophils Absolute Auto 4200 /uL (1500-7000); Neutrophils Percent Auto 70.7 % (50-75); Platelet Count 101 X10^3/uL (150-400); Red Blood Cell Count 3.34 X10^6/uL (4.0-5.2); Red Cell Distribution Width 12.6 % (11.6-14.8)
[2019-05-03 05:31] LABS: BUN Creatinine Ratio 5.6 (6-22); Blood Urea Nitrogen 5 mg/dL (7-17); Calcium 8.5 mg/dL (8.4-10.2); Carbon Dioxide 25 mmol/L (22-32); Chloride 111 mmol/L (98-107); Estimated Glomerular Filt Rate > 60.0 mL/min (>60); Glucose 91 mg/dL (70-100); HEMOLYSIS < 15 (0-50); Magnesium 1.8 mg/dL (1.6-2.3); Potassium 3.8 mmol/L (3.4-5.1); Sodium 140 mmol/L (137-145)
[2019-05-03 05:47] LABS: Procalcitonin < 0.05 ng/mL (<0.5)
[2019-05-03] MEDS: metroNIDAZOLE 500 MG/100 ML PIGGYBACK 100 MG IV (05:59)
[2019-05-03] MEDS: HYDROMORPHONE 1 MG INJ IV ×2 (06:18→18:47)
[2019-05-03] MEDS: SODIUM CHLORIDE 0.9% 1,000 ML 125 ML IV (08:49)
--- NOTE | 2019-05-03 09:13 | PM.PN.1 ---
Subjective Subjective Date Patient Seen: 05/03/19 Time Patient Seen: 07:45 Interval history: Overall improving. One episode of chills during the night. Denies subjective fevers. Denies nausea. Says she feels better and would like to go home. Exam Vital Signs (past 8 hours): - 05/03/19 01:17 PST 05/03/19 05:07 05/03/19 08:01 Temperature 99.3 F 98.1 F 97.8 F Pulse Rate 85 75 76 Respiratory Rate 18 18 16 Blood Pressure 121/74 116/73 98/53 L Pulse Oximetry 99 99 95 Oxygen Delivery Method Room Air Oxygen Flow Rate 0 Narrative Exam Narrative: GENERAL: Resting comfortably in bed Appears stated age. Answers questions promptly and appropriately. Vital signs noted. HENT: Normocephalic, atraumatic. Hearing intact. Oral mucosa is pink and moist. EYES: Conjunctiva pink, sclera white, no periorbital swelling. CARDIOVASCULAR: Regular rate. No pedal edema. RESPIRATORY: Normal respiratory rate, breathing comfortably on room air. GASTROINTESTINAL: Abdomen soft and non-distended; mild focal TTP in LLQ; improved from yesterday GENITALURINARY: No flank tenderness. MUSCULOSKELETAL: Equal tone and mass bilaterally. SKIN: Warm, dry, soft, appropriate color for ethnicity. No other lesions, rashes, or wounds. NEURO: Alert and Oriented X 3. No gross sensory deficits, or cognitive issues. PSYCH: Appropriate affect and mood. Objective Labs Result Diagrams: 05/03/19 04:54 05/03/19 04:54 Labs: Laboratory Results - last 24 hr 05/02/19 05/03/19 05/03/19 17:55 04:54 04:54 WBC 7.2 6.0 RBC 3.58 L 3.34 L Hgb 11.7 L 11.2 L Hct 34.8 L 32.4 L MCV 97.2 96.9 MCH 32.7 33.5 MCHC 33.6 34.6 RDW 12.5 12.6 Plt Count 105 L 101 L Neut % (Auto) 73.6 70.7 Lymph % (Auto) 15.6 L 18.1 L [place] % (Auto) 10.1 10.2 Eos % (Auto) 0.3 L 0.7 L Baso % (Auto) 0.4 0.3 Neut # (Auto) 5300 4200 Lymph # (Auto) 1100 1100 [place] # (Auto) 700 600 Eos # (Auto) 0 0 Baso # (Auto) 0 0 Sodium Potassium Chloride Carbon Dioxide BUN Creatinine Estimated GFR BUN/Creatinine Ratio Glucose Calcium Magnesium Procalcitonin < 0.05 05/03/19 04:54 WBC RBC Hgb Hct MCV MCH MCHC RDW Plt Count Neut % (Auto) Lymph % (Auto) [place] % (Auto) Eos % (Auto) Baso % (Auto) Neut # (Auto) Lymph # (Auto) [place] # (Auto) Eos # (Auto) Baso # (Auto) Sodium 140 Potassium 3.8 Chloride 111 H Carbon Dioxide 25 BUN 5 L Creatinine 0.90 Estimated GFR > 60.0 BUN/Creatinine Ratio 5.6 L Glucose 91 Calcium 8.5 Magnesium 1.8 Procalcitonin Assessment & Plan Assessment and plan (1) Diverticulitis: Qualifiers: Diverticulitis bleeding: without bleeding Diverticulitis complication: without perforation or abscess Diverticulitis site: large intestine Qualified Code(s): K57.32 - Diverticulitis of large intestine without perforation or abscess without bleeding Current visit: Yes Status: Acute Assessment & Plan narrative: This is a 53 old woman with improving signs and symptoms of uncomplicated diverticulitis. Since increasing her Cipro and adding acetaminophen she is no longer having fevers and chills. Her labs continue to look good. Her exam is improved today. I think it is reasonable to advance her diet. The patient very much wants to go home. I have told her that if her primary doctor decides that she would like to send her home I would strongly cautioned that she return immediately if symptoms worsen, and that she carefully observe all instructions regarding taking her antibiotics and careful advancement of her diet. I would recommend that she stick around at least most of the day in order to advance her from clears to full liquid diet and to ensure that she will be able to take enough p.o. to keep herself hydrated and nutritionally replete at home. Plan: Advanced diet to clears Advance diet as tolerated beyond that Continue antibiotics for a total of 14 day course Follow-up in the next 2 weeks with a surgeon (she is welcome to see me or 1 of my partners, however she has a surgeon in [place] in that she already follows with and would like to continue to see) Time Spent With Patient Time with patient: 15-24 minutes Quality VTE Deep Vein Thrombosis/Pulmonary Embolism Present on Admission: No
--- NOTE | 2019-05-03 10:19 | PM.DS.1 ---
History of Present Illness History of Present Illness Date Patient Seen: 05/02/19 Chief complaint: diverticulitis lots of pain Narrative: Written by Abi LING: Kamila Chawla is a pleasant 53 y.o. female with a history of diverticulitis and PTSD presents today with significant abdominal pain. She states she has had this for 6 previous episodes, exacerbated by stress. She describes the pain usually preceeding the passage of stool or air with a needle like sensation in the left lower quadrant, then becoming diffuse bilaterally. It is relieved when she passes stool or gas. Stated today, she started a course of cipro and flagyl and was not able to keep it down. She had a subjective fever, was unable to stay warm, denies chest pain, shortness of breath, had nausea, vomiting and dry heaves, she states a history of grief associated with her who committed suicide 8 months ago. 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 Discharge Providers Provider Date of admission: 05/01/19 21:55 Primary care physician: Kamila Fitzgerald DO Consults: 05/02/19 09:21 Consult to General Surgery Routine Comment: Consulting Provider: Chloé Savage Reason for consultation: Diverticulitis Has provider been notified: Yes Discharge provider: Tammie Diez DO Summary Hospital Course Hospital Course: Kamila Chawla is a pleasant 53-year-old female with a past medical history significant for 6 previous episodes of diverticulitis who presented with abrupt onset left-sided abdominal pain with intractable nausea and vomiting. 1. Acute diverticulitis, present on admission. Active. -Patient reports this is her 6th flare since 2010. She is followed by GI at [facility], Dr. Hayes. -CT abdomen and pelvis with contrast demonstrated moderate uncomplicated acute sigmoid colon diverticulitis with bowel wall thickening and small volume of free fluid without abscess. Recommend colonoscopy on resolution of acute inflammatory change to exclude underlying mass. -WBC normal at 7.7 (patient had been on antibiotics outpatient. Continue to trend WBC and procalcitonin. Of note, blood cultures were not done in ED. -Continue ciprofloxacin 400 mg Iv every 12 hours and metronidiazole 500 mg IV every 6 hours. -Patient placed NPO for bowel rest. -Received 1 L bolus of normal saline x 1 in ED. Ordered another 2 L normal saline bolus for mild low normal BP. Continue IV fluid hydration with normal saline at 125 mL/hr. -Continue supportive care with pain control with hydromorphone 1 mg IV every 6 hours as needed and antiemetic with ondansetron 4 mg every 6 hours as needed. -Consulted general surgery, Dr. Danielle, for evaluation since patient has had 6 previous flares and is high risk of complication such as abscess or perforation. 2. Insomnia, chronic, present on admission. Stable. -Continue home clonazapam 1 mg daily at bedtime. Exam Vital Signs (past 8 hours): - 05/03/19 05:07 05/03/19 07:00 05/03/19 08:01 Temperature 98.1 F 97.8 F Pulse Rate 75 76 Respiratory Rate 18 16 Blood Pressure 116/73 98/53 L Pulse Oximetry 99 98 95 Oxygen Delivery Method Room Air Oxygen Flow Rate 0 Objective Labs Result Diagrams: 05/03/19 04:54 05/03/19 04:54 Labs: Laboratory Results - last 24 hr 05/02/19 05/03/19 05/03/19 17:55 04:54 04:54 WBC 7.2 6.0 RBC 3.58 L 3.34 L Hgb 11.7 L 11.2 L Hct 34.8 L 32.4 L MCV 97.2 96.9 MCH 32.7 33.5 MCHC 33.6 34.6 RDW 12.5 12.6 Plt Count 105 L 101 L Neut % (Auto) 73.6 70.7 Lymph % (Auto) 15.6 L 18.1 L [place] % (Auto) 10.1 10.2 Eos % (Auto) 0.3 L 0.7 L Baso % (Auto) 0.4 0.3 Neut # (Auto) 5300 4200 Lymph # (Auto) 1100 1100 [place] # (Auto) 700 600 Eos # (Auto) 0 0 Baso # (Auto) 0 0 Sodium Potassium Chloride Carbon Dioxide BUN Creatinine Estimated GFR BUN/Creatinine Ratio Glucose Calcium Magnesium Procalcitonin < 0.05 05/03/19 04:54 WBC RBC Hgb Hct MCV MCH MCHC RDW Plt Count Neut % (Auto) Lymph % (Auto) Hale % (Auto) Eos % (Auto) Baso % (Auto) Neut # (Auto) Lymph # (Auto) Hale # (Auto) Eos # (Auto) Baso # (Auto) Sodium 140 Potassium 3.8 Chloride 111 H Carbon Dioxide 25 BUN 5 L Creatinine 0.90 Estimated GFR > 60.0 BUN/Creatinine Ratio 5.6 L Glucose 91 Calcium 8.5 Magnesium 1.8 Procalcitonin Discharge Plan Discharge Plan Patient Disposition: Home Discharge comment: You are being discharged home. You had another flare of diverticulitis and have been prescribed ciprofloxacin 500 mg twice daily and Flagyl 500 mg 3 times daily for the next 12 days to complete a total of 14 day antibiotic course. Please follow-up with your primary care physician, Dr. Fitzgerald, in the next 1 week regarding your hospitalization and for referral to general surgery to plan for elective bowel resection. You were also prescribed ondansetron 4 mg every 6 hours as needed for nausea/vomiting and hydrocodone to take every 8 hours as needed for severe pain and to use sparingly. 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 Recommend decreasing amount of stress in your life with things such as counseling for cognitive behavioral therapy and to implement healthy coping mechanisms, aroma therapy, massage therapy, acupuncture, meditation, etc. Discharge Med Rec/Prescriptions Prescriptions: New acetaminophen 325 mg Tablet 650 mg PO Q6HR PRN (Reason: As Needed For Fever/Mild Pain) Qty: 30 RF: 0 ciprofloxacin HCl [Cipro] 500 mg Tablet 500 mg PO BID Qty: 24 RF: 0 metronidazole 500 mg Tablet 500 mg PO TID Qty: 36 RF: 0 hydrocodone-acetaminophen 5-325 mg tablet 1 tab PO Q8H PRN (Reason: pain) Qty: 10 RF: 0 ondansetron HCl 4 mg tablet 4 mg PO Q6H PRN (Reason: nausea and vomiting) Qty: 10 RF: 0 Continued clonazepam 1 MG tablet 1 mg PO BEDTIME Qty: 0 RF: 0 Follow up/Referrals: Kamila Fitzgerald DO [Primary Care Provider] - Provider Discharge Instructions Activity: Activity as tolerated Visit Report/Discharge Packet Instructions: Clear Liquid Diet, Low-Fiber/Low-Residue Diet, Soft Diet, DI for Diverticulitis Discharge Data Primary Care Provider: Kamila Fitzgerald Attending Provider: Abi Lomas Admit Date/Time: 05/01/19 21:55 Quality VTE Deep Vein Thrombosis/Pulmonary Embolism Present on Admission: No
--- NOTE | 2019-05-03 10:20 | PC.NURSE ---
Addendum entered by Melania Butler R.N. 05/03/19 15:02: Add-1500 Pt is realistic about goals of care, and expresses feeling defeat after attempts to ride this one out like the last few flares Support provided, Pt reiterates that she is aware of options for nausea control, and will call for staff assist as needed. Addendum entered by Melania Butler R.N. 05/03/19 14:58: 1500-Pt has been to nauseated to try PO Flagyl, update to Dr Diez who will see Pt. Not likely to get d/c home with inability to take PO meds. Addendum entered by Melania Butler R.N. 05/03/19 13:30: 1330-PO Cipro given, Pt resting quietly in bed. Will monitor for worsening s/sx of nausea. Addendum entered by Melania Butler R.N. 05/03/19 12:00: 1200-Pt trialed PO diet, unable to tolerate more than pudding. Nausea worsened, zofran provided. Original Note: Am shift Pt resting quietly at start of shift. Pain controlled at present. Pt is eager to d/c home is able. Has been NPO, Dr Ortiz into see Pt, discussed advancing diet if Dr Diez is agreeable. 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 1000- Dr Diez has ordered full liquid diet, as long as Pt can tolerate, d/c for today is a possibility. Meds have been changed to PO, as long as Pt is tolerating. Update with POC, Pt pleased with plan. No Zofran given per request, would like to know if able to tolerate POs without.
[2019-05-03] MEDS: ONDANSETRON 4 MG/2 ML INJ IV ×2 (12:05→16:17)
[2019-05-03] MEDS: CIPROFLOXACIN 500 MG TABLET PO (13:16)
--- NOTE | 2019-05-03 13:30 | CM.DPC ---
DCP: continued: case discussed in Team Rounds with Dr. Diez noting she had conferred with Dr. Savage and plan would be for a d/c to home setting IF pt was able to tolerate the diet advance and change to oral medications. Met with pt as per plan; introduced self and role. Pt says she does very much wish to go home today. She was only able to try pudding at lunch and her nausea returned. She says she feels comfortable managing her own symptoms and I can tell when something is really wrong. As long as I can tolerate water I plan to go home. She says she knows Dr. Savage would like her to stay for another day. Pt has contacts in [place] she plans to call when she is ready for d/c. P: DCP team to check in if pt is still here tomorrow and follow prn if any d/c needs do arise.
--- NOTE | 2019-05-03 15:34 | P.PN_ITS ---
Subjective Subjective Date Patient Seen: 05/03/19 Interval history: Kamila Chawla is a pleasant 53-year-old female with a past medical history significant for 6 previous episodes of diverticulitis who presented with abrupt onset left-sided abdominal pain with intractable nausea and vomiting. The patient was eager to discharge home today. However, she did not tolerate advancement of diet to full liquid or oral antibiotics. She is quite nauseous on feels as though she may throw up. She has not had much in way of bowel movements but has been passing flatus. The little stool she has past has been loose with mucous and small amount of blood. She has been afebrile for 24 cristi rs. She Has no other complaints and denies headache, shortness of breath, chest pain, or dysuria. She is voiding and eliminating without difficulty. She is up ambulating without assistance. Exam Vital Signs (past 8 hours): - 05/03/19 12:22 05/03/19 15:34 Temperature 97.5 F L Pulse Rate 64 Respiratory Rate 18 Blood Pressure 125/79 138/80 Pulse Oximetry 96 Oxygen Delivery Method Room Air Oxygen Flow Rate 0 Narrative Exam Narrative: General: Middle aged female lying in bed and in no acute distress, appears acutely ill with mild rigors, well-developed, well-nourished, appropriately interactive. HEENT: Normocephalic, atraumatic. External ears without defect. Pupils equal, round, and reactive to light. Anicteric sclerae, moist conjunctivae, and no lid lag. Neck: Supple with full range of motion. No lymphadenopathy or thyromegaly. Cardiovascular: Regular rate and rhythm without murmurs, rubs, or gallops appreciated Pulmonary: Clear to auscultation bilaterally without crackles, wheezes, or rhonchi. Normal respiratory effort with no use of accessory muscles. Abdomen: Soft, bowel sounds present, mildly tender and left lower quadrant otherwise nontender, mild distension. No hepatosplenomegaly or masses appreciated. Extremities: No clubbing, cyanosis, or edema. Skin: Normal temperature, turgor, and texture; no rash, ulcers, or subcutaneous nodules appreciated. Neurological: Cranial nerves grossly intact. Psychiatric: Normal mood and normal affect. Alert and oriented to person, place, and time. Objective Labs Result Diagrams: 05/03/19 04:54 05/03/19 04:54 Labs: Laboratory Results - last 24 hr 05/02/19 05/03/19 05/03/19 17:55 04:54 04:54 WBC 7.2 6.0 RBC 3.58 L 3.34 L Hgb 11.7 L 11.2 L Hct 34.8 L 32.4 L MCV 97.2 96.9 MCH 32.7 33.5 MCHC 33.6 34.6 RDW 12.5 12.6 Plt Count 105 L 101 L Neut % (Auto) 73.6 70.7 Lymph % (Auto) 15.6 L 18.1 L [place] % (Auto) 10.1 10.2 Eos % (Auto) 0.3 L 0.7 L Baso % (Auto) 0.4 0.3 Neut # (Auto) 5300 4200 Lymph # (Auto) 1100 1100 [place] # (Auto) 700 600 Eos # (Auto) 0 0 Baso # (Auto) 0 0 Sodium Potassium Chloride Carbon Dioxide BUN Creatinine Estimated GFR BUN/Creatinine Ratio Glucose Calcium Magnesium Procalcitonin < 0.05 05/03/19 04:54 WBC RBC Hgb Hct MCV MCH MCHC RDW Plt Count Neut % (Auto) Lymph % (Auto) [place] % (Auto) Eos % (Auto) Baso % (Auto) Neut # (Auto) Lymph # (Auto) [place] # (Auto) Eos # (Auto) Baso # (Auto) Sodium 140 Potassium 3.8 Chloride 111 H Carbon Dioxide 25 BUN 5 L Creatinine 0.90 Estimated GFR > 60.0 BUN/Creatinine Ratio 5.6 L Glucose 91 Calcium 8.5 Magnesium 1.8 Procalcitonin Assessment & Plan Assessment & Plan narrative: Kamila Chawla is a pleasant 53-year-old female with a past medical history significant for 6 previous episodes of diverticulitis who presented with abrupt onset left-sided abdominal pain with intractable nausea and vomiting. 1. Acute diverticulitis, present on admission. Active. -Patient reports this is her 6th flare since 2010. She is followed by GI at [facility], Dr. Hayes. -CT abdomen and pelvis with contrast demonstrated moderate uncomplicated acute sigmoid colon diverticulitis with bowel wall thickening and small volume of free fluid without abscess. Recommend colonoscopy on resolution of acute inflammatory change to exclude underlying mass. -WBC normal at 7.7 (patient had been on antibiotics outpatient). Continue to trend WBC and procalcitonin. Of note, blood cultures were not done in ED. -Received 1 L bolus of normal saline x 1 in ED. Received 2 L normal saline bolus for mild low normal BP. Continue IV fluid hydration with normal saline at 100 mL/hr. -Continue supportive care with pain control with hydromorphone 1 mg IV every 6 hours as needed and antiemetic with ondansetron 4 mg every 6 hours as needed and promethazine 10 mg every 6 hours as needed. -Patient did not tolerate advancement of diet from clears to full liquid. Co ntinue bowel rest and clears only as tolerated. -Switched ciprofloxacin and metronidiazole to PO which the patient did not tolerate. Switched to Zosyn 3.375 g every 6 hours due to persistent nausea, v omiting and abdominal pain and associated GI upset with metronidazole. -Ordered GI stool panel to rule out infectious source, pending. -Consulted general surgery, Dr. Danielle, for evaluation since patient has had 6 previous flares and is high risk of complication such as abscess or perforation. We appreciate her time in care of the patient. 2. Insomnia, chronic, present on admission. Stable. -Continue home clonazapam 1 mg daily at bedtime. Code status: Full code VTE Prophylaxis: Bilateral SCDs Disposition: Patient likely to discharge to home wants acute diverticulitis is improving and able to tolerate advancement of diet and oral antibiotics. Quality VTE Deep Vein Thrombosis/Pulmonary Embolism Present on Admission: No
[2019-05-03] MEDS: SODIUM CHLORIDE 0.9% 1,000 ML 100 ML IV (16:51)
[2019-05-03] MEDS: PIPERACILLIN-TAZO 3.375 GM/50 ML FROZ.PIGGY IV (17:01)
--- NOTE | 2019-05-03 19:15 | PC.NURSE ---
Pt checked on and assessed. Pt is laying in bed, nauseated, complaining of head-ache pain up to 7/10. Pt initially wanted just tylenol for pain, but was more nauseated and had emesis. Dr. Diez to bedside, cancelled discharge orders, changed antibiotics and ordered stool sample. Pt given dose of iv zofran, did not want iv dilaudid for abdominal pain (up to 6/10). Pt eventually requested iv dilaudid, given 1 mg iv, pushed slowly over 3 minutes to minimize unpleasant effects. Pt became nauseated shortly after iv dilaudid given, did not want iv compazine for nausea at that time. Pt is now resting, call light in reach. Will continue to monitor, notify MD with changes.
[2019-05-03 19:23] LABS: Adenovirus F 40/41 Not Detected (Not Detect); Astrovirus Not Detected (Not Detect); Campylobacter Not Detected (Not Detect); Clostridium difficile toxin AB Not Detected (Not Detect); Cryptosporidium Not Detected (Not Detect); Cyclospora cayetanensis Not Detected (Not Detect); Entamoeba histolytica Not Detected (Not Detect); Enteroaggregative E.coli Not Detected (Not Detect); Enteropathogenic E.coli Not Detected (Not Detect); Enterotoxigenic E.coli It/st Not Detected (Not Detect); Giardia lamblia Not Detected (Not Detect); Norovirus GI/GII Not Detected (Not Detect); Plesiomonsa shigelloides Not Detected (Not Detect); Rotavirus A Not Detected (Not Detect); Salmonella Not Detected (Not Detect); Sapovirus Not Detected (Not Detect); Shiga-like toxin-prod E.coli Not Detected (Not Detect); Shigella/Enteroinvasive E.coli Not Detected (Not Detect); Vibrio Not Detected (Not Detect); Vibrio cholerae Not Detected (Not Detect); Yersinia enterocolitica Not Detected (Not Detect)
[2019-05-03] MEDS: PROCHLORPERAZINE 10 MG/2 ML VIAL IV (21:32)
[2019-05-03] MEDS: clonazePAM 0.5 MG TABLET 1 MG PO (22:19)
[2019-05-04] VITALS: O2SAT 96
[2019-05-04] MEDS: PIPERACILLIN-TAZO 3.375 GM/50 ML FROZ.PIGGY IV ×2 (00:38→04:54)
[2019-05-04 00:57] VITALS: BP 128/78; PULSE 60; RESP 16; TEMP 36.4; O2SAT 96
[2019-05-04] MEDS: SODIUM CHLORIDE 0.9% 1,000 ML 100 ML IV (03:45)
[2019-05-04 05:23] LABS: Add Manual Diff / Slide Review NO; Basophils Absolute Auto 0 /uL (0-100); Basophils Percent Auto 0.3 % (0-2); Eosinophils Absolute Auto 100 /uL (0-450); Eosinophils Percent Auto 1.8 % (2-4); Hematocrit 33.5 % (36-46); Hemoglobin 11.5 g/dL (12.0-16.0); Lymphocytes Absolute Auto 900 /uL (1100-4500); Lymphocytes Percent Auto 19.7 % (25-40); Mean Corpuscular HGB Conc 34.3 % (30-36); Mean Corpuscular Hemoglobin 33.4 PG (26-34); Mean Corpuscular Volume 97.4 fL (80-100); Monocytes Absolute Auto 400 /uL (0-900); Monocytes Percent Auto 9.6 % (3-14); Neutrophils Absolute Auto 3200 /uL (1500-7000); Neutrophils Percent Auto 68.6 % (50-75); Platelet Count 109 X10^3/uL (150-400); Red Blood Cell Count 3.44 X10^6/uL (4.0-5.2); Red Cell Distribution Width 12.2 % (11.6-14.8); White Blood Cell Count 4.7 X10^3/uL (4.5-11.0)
[2019-05-04 05:28] VITALS: BP 133/78; PULSE 76; RESP 18; TEMP 37.2; O2SAT 98
[2019-05-04 05:28] LABS: BUN Creatinine Ratio 8.8 (6-22); Blood Urea Nitrogen 7 mg/dL (7-17); Calcium 8.7 mg/dL (8.4-10.2); Carbon Dioxide 24 mmol/L (22-32); Chloride 112 mmol/L (98-107); Estimated Glomerular Filt Rate > 60.0 mL/min (>60); Glucose 71 mg/dL (70-100); HEMOLYSIS < 15 (0-50); Magnesium 1.8 mg/dL (1.6-2.3); Potassium 3.6 mmol/L (3.4-5.1); Sodium 142 mmol/L (137-145)
--- NOTE | 2019-05-04 05:30 | PC.NURSE ---
Pt states that Compazine was effective for nausea. Pt reports only pain is cramping sensation in LLQ,which she rates as 5/10. Pt declining medication for pain. Encouraged to call if medication needed for pain or nausea. Pt agreeable. Pt has slept long periods. Temperature 99F this am.
[2019-05-04 08:58] VITALS: O2SAT 97
[2019-05-04 09:00] VITALS: BP 143/78; PULSE 81; RESP 18; TEMP 36.7; O2SAT 96
[2019-05-04] MEDS: CIPROFLOXACIN 500 MG TABLET PO (09:15)
--- NOTE | 2019-05-04 09:33 | PC.NURSE ---
Addendum entered by Jessica Morgan R.N. 05/04/19 12:27: pt discharged to home at this time Original Note: pt states abd pain is 4/10 but states she is tolerating this well and declines any analgesic- saline locked and allowed pt to shower she is having difficulty with the extreme sweet or saltiness of clear liquids - denies nausea and drank apple juice this am - taking small amount of applesauce with am dose of cipro and nervous to take po flagyl as she believes this caused extreme nausea yesterday- pt eager to be d/c'd home later this date
--- NOTE | 2019-05-04 09:58 | P.PN_ITS ---
Subjective Subjective Date Patient Seen: 05/04/19 Time Patient Seen: 09:58 Interval history: This is a surgical follow-up progress note on consultation for this 53-year-old white female patient with repeated bouts of sigmoid diverticulitis. Patient has been in the hospital here for about 4 days. She is recovering on IV antibiotic therapy. Stool samples are negative for all pathogens including C diff. Patient had a fairly normal bowel movement this morning. No nausea no vomiting. Tolerating a soft diet. Exam Vital Signs (past 8 hours): - 05/04/19 05:28 05/04/19 08:58 05/04/19 09:00 Temperature 99.0 F 98.0 F Pulse Rate 76 81 Respiratory Rate 18 18 Blood Pressure 133/78 143/78 H Pulse Oximetry 98 97 96 Oxygen Delivery Method Room Air Oxygen Flow Rate 0 Narrative Exam Narrative: Patient is afebrile. Complaining of minimal abdominal pain. Abdomen is soft in all quadrants. There is minimal left lower quadrant tenderness. There is no mass. Objective Labs Result Diagrams: 05/04/19 04:52 05/04/19 04:52 Labs: Laboratory Results - last 24 hr 05/03/19 05/04/19 05/04/19 17:01 04:52 04:52 WBC 4.7 RBC 3.44 L Hgb 11.5 L Hct 33.5 L MCV 97.4 MCH 33.4 MCHC 34.3 RDW 12.2 Plt Count 109 L Neut % (Auto) 68.6 Lymph % (Auto) 19.7 L [place] % (Auto) 9.6 Eos % (Auto) 1.8 L Baso % (Auto) 0.3 Neut # (Auto) 3200 Lymph # (Auto) 900 L [place] # (Auto) 400 Eos # (Auto) 100 Baso # (Auto) 0 Sodium 142 Potassium 3.6 Chloride 112 H Carbon Dioxide 24 BUN 7 Creatinine 0.80 Estimated GFR > 60.0 BUN/Creatinine Ratio 8.8 Glucose 71 Calcium 8.7 Magnesium 1.8 Stl C. cayetanensis PCR Not detected Stool Rotavirus (PCR) Not detected Stool Adenovirus (PCR) Not detected Stool Astrovirus (PCR) Not detected Stool Cryptosporidium PCR Not detected Stl E.coli Shiga Tox PCR Not detected St Sh/Enteroin Ecoli PCR Not detected Stool E coli O157 PCR Not detected Stl Enterotoxigenic E PCR Not detected Stool EPEC (PCR) Not detected Stl E. histolytica PCR Not detected Stool Giardia Lamblia PCR Not detected Stool Sapovirus (PCR) Not detected Stl P. shigelloides PCR Not detected St Y.enterocolitica PCR Not detected Stool Vibrio (PCR) Not detected Stl Vibrio cholerae PCR Not detected Stl Enteroaggr Ecoli PCR Not detected Stl Norovirus GI/GII PCR Not detected Campylobacter (PCR) Not detected C. difficile Tox (PCR) Not detected Salmonella (PCR) Not detected Assessment & Plan Assessment & Plan narrative: Patient has recovered from yet another bout of acute sigmoid diverticulitis. There is data suggesting she has had 6 attacks of sigmoid diverticulitis in the last 7 years. I think the patient is ready for discharge on oral antibiotic therapy. She had a bad reaction to Flagyl with considerable nausea and I think she could be managed on Cipro orally at this point. I have strongly recommended to the patient that when she has recovered from this acute phase that she have a colonoscopy and consider a sigmoid resection electively. 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 She will follow up with her doctor who is a licensed [employer] and consider these options. Quality VTE Deep Vein Thrombosis/Pulmonary Embolism Present on Admission: No
--- NOTE | 2019-05-04 12:02 | PM.DS.1 ---
History of Present Illness History of Present Illness Date Patient Seen: 05/04/19 Time Patient Seen: 12:04 Chief complaint: diverticulitis lots of pain Narrative: As per SUSHIL Cash: Kamila Chawla is a pleasant 53 y.o. female with a history of diverticulitis and PTSD presents today with significant abdominal pain. She states she has had this for 6 previous episodes, exacerbated by stress. She describes the pain usually preceeding the passage of stool or air with a needle like sensation in the left lower quadrant, then becoming diffuse bilaterally. It is relieved when she passes stool or gas. Stated today, she started a course of cipro and flagyl and was not able to keep it down. She had a subjective fever, was unable to stay warm, denies chest pain, shortness of breath, had nausea, vomiting and dry heaves, she states a history of grief associated with her who committed suicide 8 months ago. 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 Discharge Providers Provider Date of admission: 05/01/19 21:55 Discharge Date: 05/04/19 Primary care physician: Kamila Fitzgerald DO Consults: 05/02/19 09:21 Consult to General Surgery Routine Comment: Consulting Provider: Chloé Savage Reason for consultation: Diverticulitis Has provider been notified: Yes Discharge provider: Tarun Saleem DO Summary Hospital Course Discharge Diagnosis: 1. Acute diverticulitis, present on admission. Active. 2. Insomnia, chronic, present on admission. Stable. Hospital Course: Kamila Chawla is a pleasant 53-year-old female with a past medical history significant for 6 previous episodes of diverticulitis who presented with abrupt onset left-sided abdominal pain with intractable nausea and vomiting and was admitted to the hospital with acute diverticulitis. She showed improvement with IV antibiotics, but developed some nausea to Flagyl. She was tolerating clears and was stable for discharge home. Given intolerance of Flagyl will prescribe patient with Augmentin to complete 14 day total course at home. She is reliable patient given her occupation, and she understands that she needs a colonoscopy and potential elective operation after this flare and further understands that if her condition worsens again she should return to the hospital. 1. Acute diverticulitis, present on admission. Active. -Patient reports this is her 6th flare since 2010. She is followed by GI at [facility], Dr. Hayes. -CT abdomen and pelvis with contrast demonstrated moderate uncomplicated acute sigmoid colon diverticulitis with bowel wall thickening and small volume of free fluid without abscess. Recommend colonoscopy on resolution of acute inflammatory change to exclude underlying mass. -WBC normal on admission and did not become elevated while here (on abx as an outpatient however prior to arrival) -Received 1 L bolus of normal saline x 1 in ED. Received 2 L normal saline bolus for mild low normal BP. -Continue supportive care with pain control zofran as needed at home and oxycodone as needed for pain. -Discharge on clear liquids, patient to advance diet as tolerated at home. -Switched ciprofloxacin and metronidiazole to PO which the patient did not tolerate. Switched to Zosyn 3.375 g every 6 hours due to persistent nausea, vomiting and abdominal pain and associated GI upset with metronidazole. Patient was discharged on augmentin 875 mg TID for diverticulitis given flagyl intolerance. She should complete 14 day total course. -Ordered GI stool panel to rule out infectious source which was negative. -Consulted general surgery, Dr. Danielle and Dr. Etienne, for evaluation since patient has had 6 previous flares and is high risk of complication such as abscess or perforation. We appreciate their time in care of the patient. 2. Insomnia, chronic, present on admission. Stable. -Continue home clonazapam 1 mg daily at bedtime. Dispo: Discharge home in stable condition. Time Spent with Patient Time spent: Greater than 30 minutes Exam Vital Signs (past 8 hours): - 05/04/19 05:28 05/04/19 08:58 05/04/19 09:00 Temperature 99.0 F 98.0 F Pulse Rate 76 81 Respiratory Rate 18 18 Blood Pressure 133/78 143/78 H Pulse Oximetry 98 97 96 Oxygen Delivery Method Room Air Oxygen Flow Rate 0 Narrative Exam Narrative: GENERAL APPEARANCE: Well developed, well nourished, in no acute distress. SKIN: Inspection of the skin reveals no rashes, ulcerations or petechiae. HEENT: The sclerae were anicteric and conjunctivae were pink and moist. Extraocular movements were intact and pupils were equal, round with normal accommodation. External inspection of the ears and nose showed no scars, lesions, or masses. Lips, teeth, and gums showed normal mucosa. The oral mucosa, hard and soft palate, tongue and posterior pharynx were unremarkable. NECK: Supple and symmetric. There was no thyroid enlargement, and no tenderness, or masses were felt. CHEST: Normal AP diameter and normal contour without any kyphoscoliosis. LUNGS: Auscultation of the lungs revealed no wheezes, rhonchi, or rales. CARDIOVASCULAR: There was a regular rate and rhythm without any murmurs, gallops, rubs. Peripheral pulses were 2+ and symmetric. ABDOMEN: Soft and improved tenderness to bilateral lower quadrants. No ascites was noted. MUSCULOSKELETAL: There was no tenderness or effusions noted. Muscle strength and tone were normal. EXTREMITIES: No cyanosis, clubbing or edema. NEUROLOGIC: Alert and oriented x 3. Normal affect. Gait was normal. Strength is +5/5 in the Upper Extremities and Lower Extremities Bilaterally. Sensation to touch was normal. Objective Labs Result Diagrams: 05/04/19 04:52 05/04/19 04:52 Labs: Laboratory Results - last 24 hr 05/03/19 05/04/19 05/04/19 17:01 04:52 04:52 WBC 4.7 RBC 3.44 L Hgb 11.5 L Hct 33.5 L MCV 97.4 MCH 33.4 MCHC 34.3 RDW 12.2 Plt Count 109 L Neut % (Auto) 68.6 Lymph % (Auto) 19.7 L [place] % (Auto) 9.6 Eos % (Auto) 1.8 L Baso % (Auto) 0.3 Neut # (Auto) 3200 Lymph # (Auto) 900 L [place] # (Auto) 400 Eos # (Auto) 100 Baso # (Auto) 0 Sodium 142 Potassium 3.6 Chloride 112 H Carbon Dioxide 24 BUN 7 Creatinine 0.80 Estimated GFR > 60.0 BUN/Creatinine Ratio 8.8 Glucose 71 Calcium 8.7 Magnesium 1.8 Stl C. cayetanensis PCR Not detected Stool Rotavirus (PCR) Not detected Stool Adenovirus (PCR) Not detected Stool Astrovirus (PCR) Not detected Stool Cryptosporidium PCR Not detected Stl E.coli Shiga Tox PCR Not detected St Sh/Enteroin Ecoli PCR Not detected Stool E coli O157 PCR Not detected Stl Enterotoxigenic E PCR Not detected Stool EPEC (PCR) Not detected Stl E. histolytica PCR Not detected Stool Giardia Lamblia PCR Not detected Stool Sapovirus (PCR) Not detected Stl P. shigelloides PCR Not detected St Y.enterocolitica PCR Not detected Stool Vibrio (PCR) Not detected Stl Vibrio cholerae PCR Not detected Stl Enteroaggr Ecoli PCR Not detected Stl Norovirus GI/GII PCR Not detected Campylobacter (PCR) Not detected C. difficile Tox (PCR) Not detected Salmonella (PCR) Not detected Discharge Plan Discharge Plan Patient Disposition: Home Discharge comment: You are being discharged home. You had another flare of diverticulitis and have been prescribed Augmentin 875 mg three times daily for 11 days to complete a total of 14 day antibiotic course. Please follow-up with your primary care physician, Dr. Fitzgerald, in the next 1 week regarding your hospitalization and for referral to general surgery to plan for elective bowel resection. You were also prescribed ondansetron 4 mg every 6 hours as needed for nausea/vomiting and hydrocodone to take every 8 hours as needed for severe pain and to use sparingly. 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 Recommend decreasing amount of stress in your life with things such as counseling for cognitive behavioral therapy and to implement healthy coping mechanisms, aroma therapy, massage therapy, acupuncture, meditation, etc. Discharge Med Rec/Prescriptions Prescriptions: New acetaminophen 325 mg Tablet 650 mg PO Q6HR PRN (Reason: As Needed For Fever/Mild Pain) Qty: 30 RF: 0 hydrocodone-acetaminophen 5-325 mg tablet 1 tab PO Q8H PRN (Reason: pain) Qty: 10 RF: 0 ondansetron HCl 4 mg tablet 4 mg PO Q6H PRN (Reason: nausea and vomiting) Qty: 10 RF: 0 amoxicillin-pot clavulanate [Augmentin] 875-125 mg tablet 1 tab PO TID 11 Days Qty: 33 RF: 0 Continued clonazepam 1 MG tablet 1 mg PO BEDTIME Qty: 0 RF: 0 Follow up/Referrals: Kamila Fitzgerald DO [Primary Care Provider] - Provider Discharge Instructions Diet: Clear Liquid Diet comment: Please advance your diet as tolearted, from clear liquids to eventual bland Activity: Activity as tolerated Visit Report/Discharge Packet Instructions: Clear Liquid Diet, Low-Fiber/Low-Residue Diet, Soft Diet, DI for Diverticulitis Discharge Data Primary Care Provider: Kamila Fitzgerald Attending Provider: Abi Lomas Admit Date/Time: 05/01/19 21:55 Quality VTE Deep Vein Thrombosis/Pulmonary Embolism Present on Admission: No
--- NOTE | 2019-08-06 15:28 | CM.DPNOTE ---
Addendum entered by Vy Knutson R.N. 08/06/19 15:31: The below phone call was made on the afternoon of 07/23/19 Original Note: .?Pt. thought her visit should have been inpatient vs. OBS. I called her back explaining the following: I ran her concerns by Dr. Allison and we have both reviewed her chart.? After reviewing this case and in general we think it should have been observation. In the MD notes, both ER and admitting H&P document observation status. ?Patient is placed in observation as her stay is not anticipated to exceed 2 midnights.?? The [facility] criteria for diverticulitis is as follows: ? Admission is indicated for 1 or more of the following(1)(2)(3)(4)(5)(6): o Peritoneal signs? She did not have this.? Dr. Savage?s note states she did not have peritoneal signs o Hemodynamic instability Her vitals remained stable during stay o Persistent gross bleeding per rectum (eg, resulting in drop in hematocrit) She did not have this o Significant abnormality on imaging study, including 1 or more of the following:? None of these were present. ? Abscess ? Fistula ? Obstruction ? Ileus ? Free perforation o Immunocompromised patient (eg, chronic systemic corticosteroid use, neutropenia, end-stage renal disease, AIDS, transplant patient) Does not apply to this pt. o Need for inpatient surgical intervention No acute surgery was needed. o Bacteremia negative o Appropriate outpatient antimicrobial treatment unavailable, not effective, or not feasible Oral meds were an appropriate option and she went home on the oral meds.? She did not fail oral meds prior to coming in. o Severe pain requiring acute inpatient management She did require IV pain meds thoughout her stay, but for this to be accepted criteria she would have needed to have failed oral pain meds and or unable to keep down oral meds. o Vomiting that is severe or persistent Only one episode of emesis was recorded during her stay. I don?t think we demonstrated severe or persistent vomiting. o Dehydration that is severe or persistent She did not have this. o Inability to maintain oral hydration (eg, needs IV fluid support) that persists after emergency department and observation care treatment She was able to tolerate clear liquids all through her stay. o Parenteral nutrition regimen that must be implemented on inpatient basis she did not have this. o Other condition, treatment, or monitoring requiring inpatient admission None documented.
== END 2019-05-04 12:28 | disposition home or self-care (01) ==
LOC: ED 21:40 → ICU 05-02 09:00 → AC 05-02 10:43 → ICU 05-02 10:43
PROVIDERS: Internal Medicine; Surgery; Admitting Provider Nurse Practitioner Family; Emergency Provider Emergency Medicine; PCP Family Medicine; Visit Provider Nurse Practitioner Family
DX: K57.32 Diverticulitis of large intestine without perforation or abscess without bleeding (principal); R10.9 Unspecified abdominal pain; R11.2 Nausea with vomiting, unspecified; F51.04 Psychophysiologic insomnia
CPT/HCPCS: 36415; 74177; 80048; 80053; 81003; 83605; 83690; 83735; 84145; 85025; 87507; 87797; 93005; 93010; 96361; 96365; 96366; 96367; 96368; 96375; 96376; 99219; 99224; 99283; 99285; G0378; J0744; J0780; J1170; J2405; J2543; Q9967

== ENCOUNTER 2019-09-20 17:05 | Inpatient (IN) | payer OTHER, SELFPAY ==
[2019-05-02 00:07] VITALS: BMI 26.2
[2019-09-20] VITALS (21 sets, daily range): BP systolic 117–184; BP diastolic 79–128; PULSE 61–106; RESP 10–22; TEMP 35.7–36.6; O2SAT 94–100; BMI 27.3; BMI 27.8
--- NOTE | 2019-09-20 17:15 | ED_ITS ---
HPI - Overdose General Chief Complaint: Toxicology Problem Stated Complaint: intentional overdose Time Seen by Provider: 09/20/19 17:05 Source: patient and EMS Mode of arrival: EMS Limitations: altered mental status History of Present Illness HPI Narrative: 54F nonsmoker with history of depression and anxiety presents by EMS with police escort after intentional overdose with what she reports as somewhere between 25 and 45 clonazepam 1 mg tablets somewhere between 1 and 2 hours prior to her arrival. She consumed this along with a bottle of champagne. She states that she did this in an effort to kill herself stating that she no longer wants to live. When asked about the reason she is very reluctant to speak. When EMS arrived she was alert, tearful and states that she had been texting family members about her desire to hurt herself. By the time she arrived she started slurring her words but is still guarding her airway without difficulty. She denies any recent travel, chest pain or shortness of breath. She denies any other medications. MD complaint: intentional overdose Onset (ago): hour(s) Intent: suicide attempt How Overdose Was Discovered: called family/friend Associated symptoms: depression Treatments Prior to Arrival: none Related Data Home Medications Medication Instructions Recorded Confirmed clonazepam 1 mg PO BEDTIME #0 08/15/17 05/02/19 Previous Rx's Medication Instructions Recorded acetaminophen 650 mg PO Q6HR PRN #30 tab 05/03/19 hydrocodone-acetaminophen 1 tab PO Q8H PRN #10 tab 05/03/19 ondansetron HCl 4 mg PO Q6H PRN #10 tab 05/03/19 Allergies Allergy/AdvReac Type Severity Reaction Status Date / Time sulfamethoxazole AdvReac Mild N/V Verified 05/01/19 18:49 [From Bactrim] trimethoprim [From Bactrim] AdvReac Mild N/V Verified 05/01/19 18:49 Review of Systems Constitutional Constitutional: Denies chills, Denies fatigue, Denies fever(s), Denies frequent falls, Denies lethargy and Denies weakness Eyes Eyes: Denies change in vision, Denies eye discharge, Denies irritation and Denies loss of vision ENT Ears, Nose, Mouth, and Throat: Denies change in voice, Denies dizziness, Denies neck pain, Denies sore throat and Denies throat swelling Cardiovascular Cardiovascular: Denies chest pain, Denies irregular heart rhythm, Denies lightheadedness, Denies palpitations, Denies dyspnea, Denies dyspnea on exertion and Denies orthopnea Respiratory Respiratory: Denies cough, Denies dyspnea, Denies dyspnea on exertion and Denies wheezing Gastrointestinal Gastrointestinal: Denies abdominal pain, Denies change in bowel habits, Denies diarrhea, Denies nausea and Denies vomiting Genitourinary Genitourinary: Denies hematuria, Denies flank pain, Denies urinary incontinence and Denies urinary urgency Musculoskeletal Musculoskeletal: Denies back pain, Denies muscle weakness, Denies neck pain, Denies numbness and Denies tingling Integumentary/Breasts Skin/Breast: Denies pruritus, Denies erythema, Denies rash and Denies wounds Neurologic Neurologic: Denies behavioral changes, Denies confusion, Denies dizziness, Denie s frequent falls, Denies loss of vision, Denies numbness, Denies tingling and Denies weakness Psychiatric Psychiatric: Denies anxiety, Denies behavioral changes, Denies confusion, Reports depression, Reports hopelessness, Denies homicidal ideation and Reports suicidal ideation Endocrine Endocrine: Denies fatigue, Denies flushing and Denies palpitations Hematologic/Lymphatic Hematologic/Lymphatic: Denies easy bruising Allergic/Immunologic Allergic/Immunologic: Denies urticaria, Denies throat swelling and Denies wheezing Patient History Medical History Depression (11/05/13) Diverticulitis (Acute) Social History household members: family Smoking Status: Never smoker Smoking Status: Never smoker alcohol intake frequency: 0-2 drinks per day Substance Use Type: does not use Exam Narrative Exam Narrative: GENERAL: [54] year old patient appears stated age. Well- nourished, well-developed patient, in moderate distress, tearful, crying, poor eye contact, slurring her words, no drooling, coughing or sputtering. Guarding her airway HEAD: Atraumatic. Normocephalic. EYES: Pupils equal round and reactive. Extraocular motions intact. No scleral icterus. No injection or drainage. ENT: Nose without bleeding, purulent drainage. Throat without erythema, tonsillar hypertrophy or exudate. Airway patent. NECK: Trachea midline. Non tender CARDIOVASCULAR: Regular rate and rhythm without murmurs, gallops, or rubs. RESPIRATORY: Clear to auscultation. Breath sounds equal bilaterally. No wheezes, rales, or rhonchi. GASTROINTESTINAL: Abdomen soft, non-tender, nondistended. EXTREMITIES: No edema or joint tenderness. BACK: Nontender without deformity or crepitance. No flank tenderness. NEURO: AOx3. SKIN: No rash or erythema of visible areas Initial Vital Signs Initial Vital Signs: Vital Signs Blood Pressure 161/104 H 09/20/19 17:05 Procedures Intubation Time out performed: Yes sedative: Ketamine Mg Given: 100 paralytic: Rocuronium Mg Given: 80 Laryngoscope: other ET Tube Size: 8 ET Tube Uncuffed: No Tube Secured Depth (cm): 24 Tube Secured Location: teeth Tube Placement Confirmation: Visualized tube passing through cords Patient Tolerated Procedure: Well Intubation Complications: none Course Orders Ordered: ED Orders 09/20/19 17:00 Acetaminophen Stat Complete Blood Count AUTO DIFF Stat Comprehensive Metabolic Panel Stat Ethanol (ETOH) Stat Magnesium Stat Salicylate Stat 09/20/19 17:10 EKG-12 Lead Stat 09/20/19 17:27 CT chest wo con Stat 09/20/19 17:33 XR chest 1V Stat Arterial Blood Gas Stat Ventilator Order 09/20/19 17:34 Endotracheal tube suction As needed 09/20/19 18:10 Urinalysis and Microscopic Stat Urine Drug Screen, Rapid Stat Acetaminophen (Tylenol) 650 mg GA Q6HR PRN PRN Reason: Fever Enoxaparin Sodium (Lovenox) 40 mg SUBCUT DAILY [facility] Fentanyl (Sublimaze) 100 mcg IV Q30MIN PRN PRN Reason: Pain, Severe (7-10) Last Admin: 09/20/19 18:47 Dose: 100 mcg Documented by: Admin: 09/20/19 18:02 Dose: 100 mcg Documented by: RAMA Fentanyl (Sublimaze) 28 mcg 0.35 mcg/kg (28 mcg) IV Q1HR PRN PRN Reason: Pain, Severe (7-10) Propofol (Propofol) 1,000 mg in 100 mls @ 2.381 mls/hr IV TITRATE ANDREW; Protocol Last Titration: 09/20/19 18:46 Dose: 20 mcg/kg/min, 9.525 mls/hr Documented by: Titration: 09/20/19 18:45 Dose: 20 mcg/kg/min, 9.525 mls/hr Documented by: Titration: 09/20/19 18:22 Dose: 10 mcg/kg/min, 4.763 mls/hr Documented by: Admin: 09/20/19 18:00 Dose: 5 mcg/kg/min, 2.381 mls/hr Documented by: RAMA Sodium Chloride (Normal Saline 0.9%) 1,000 mls @ 100 mls/hr IV BOLUS ONE Stop: 09/21/19 03:44 Last Infusion: 09/20/19 18:47 Dose: 150 mls/hr Documented by: Admin: 09/20/19 17:46 Dose: 150 mls/hr Documented by: ANA Propofol (Propofol) 1,000 mg in 100 mls @ 2.381 mls/hr IV TITRATE ANDREW; Protocol Ondansetron HCl (Zofran) 4 mg IV Q4HR PRN PRN Reason: Nausea And Vomiting Discontinued Medications Sodium Chloride (Normal Saline 0.9%) 1,000 mls @ 1,000 mls/hr IV BOLUS ONE Stop: 09/20/19 18:08 Last Infusion: 09/20/19 18:47 Dose: 0 mls/hr Documented by: Admin: 09/20/19 17:20 Dose: 1,000 mls/hr Documented by: ANA Ketamine HCl (Ketalar) 80 mg 1 mg/kg (80 mg) IV NOW ONE Stop: 09/20/19 17:34 Last Admin: 09/20/19 17:47 Dose: 80 mg Documented by: RAMA Rocuronium [place] (Zemuron) 80 mg IV NOW ONE Stop: 09/20/19 17:34 Last Admin: 09/20/19 17:50 Dose: 80 mg Documented by: RAMA Reevaluation(s) Reevaluation #1: patient demonstrates rapidly worsening mental status with slurring of words and high likelihood of airway compromise. While prepping for intubation she is taken to CT for CT chest without contrast to see Vital Signs Vital signs: Vital Signs - 8 hr 09/20/19 17:05 09/20/19 17:11 03/22/20 17:19 Temperature 97.8 F Pulse Rate 106 H 84 Respiratory Rate 14 20 Blood Pressure 161/104 H Blood Pressure [Left Arm] 161/104 H 140/99 H Pulse Oximetry 97 94 09/20/19 17:25 09/20/19 17:43 09/20/19 17:44 Temperature Pulse Rate 81 80 73 Respiratory Rate 19 19 22 Blood Pressure Blood Pressure [Left Arm] 142/96 H 133/90 133/90 Pulse Oximetry 94 94 97 09/20/19 17:45 09/20/19 17:49 09/20/19 17:50 Temperature Pulse Rate 81 85 94 H Respiratory Rate 19 10 L 16 Blood Pressure Blood Pressure [Left Arm] 127/88 140/97 H 167/112 H Pulse Oximetry 95 98 09/20/19 18:00 09/20/19 18:10 09/20/19 18:20 Temperature Pulse Rate 90 82 75 Respiratory Rate 16 16 16 Blood Pressure Blood Pressure [Left Arm] 183/112 H 151/100 H 141/101 H Pulse Oximetry 97 97 97 MDM - Overdose Lab Data Result diagrams: 09/20/19 17:00 09/20/19 17:00 Labs: Lab Results 09/20/19 09/20/19 09/20/19 Range/Units 17:00 17:00 17:00 WBC 7.0 (4.5-11.0) X10^3/uL RBC 4.54 (4.0-5.2) X10^6/uL Hgb 15.0 (12.0-16.0) g/dL Hct 43.2 (36-46) % MCV 95.0 (80-100) fL MCH 33.0 (26-34) PG MCHC 34.7 (30-36) % RDW 12.9 (11.6-14.8) % Plt Count 172 (150-400) X10^3/uL Neut % (Auto) 47.3 L (50-75) % Lymph % (Auto) 42.7 H (25-40) % [place] % (Auto) 8.0 (3-14) % Eos % (Auto) 1.8 L (2-4) % Baso % (Auto) 0.2 (0-2) % Neut # (Auto) 3300 (7040-0641) /uL Lymph # (Auto) 3000 (6575-1242) /uL [place] # (Auto) 600 (0-900) /uL Eos # (Auto) 100 (0-450) /uL Baso # (Auto) 0 (0-100) /uL Sodium 139 (137-145) mmol/L Potassium 3.7 (3.4-5.1) mmol/L Chloride 106 (98-107) mmol/L Carbon Dioxide 18 L (22-32) mmol/L BUN 14 (7-17) mg/dL Creatinine 0.78 (0.52-1.04) mg/dL Estimated GFR > 60.0 (>60) mL/min BUN/Creatinine Ratio 17.9 (6-22) Glucose 132 H (70-100) mg/dL Calcium 9.6 (8.4-10.2) mg/dL Magnesium 2.1 (1.6-2.3) mg/dL Total Bilirubin 0.5 (0.2-1.3) mg/dL AST 35 (14-36) IU/L ALT 24 (<35) IU/L Alkaline Phosphatase 90 (38-126) U/L Total Protein 7.8 (6.3-8.2) g/dL Albumin 4.6 (3.5-5.0) g/dL Globulin 3.2 (1.7-4.1) g/dL Albumin/Globulin Ratio 1.4 (1.0-2.8) Urine Color Urine Appearance Urine pH (4.5-8.0) Ur Specific [place] (1.000-1.035) Urine Protein (Negative) Urine Glucose (UA) (Negative) g/dL Urine Ketones (NEGATIVE) Urine Occult Blood (Negative) Urine Nitrate (Negative) Urine Bilirubin (NEGATIVE) Urine Urobilinogen (0.2) E.U./dL Ur Leukocyte Esterase (NEGATIVE) Urine RBC (0-5/HPF) Urine WBC (0-5/HPF) Ur Squamous Epith Cells (0-5/HPF) Urine Bacteria (None) Ur Culture Indicated? Salicylates < 1.0 (<20) mg/dL U Opiates 300ng/mL cut (Negative) Ur Oxycodone Screen (Negative) Urine Methadone Screen (Negative) Acetaminophen < 10 L (10-30) ug/mL Ur Barbiturates Screen (Negative) U Tricyclic Antidepress (Negative) Ur Phencyclidine Scrn (Negative) Ur Amphetamines Screen (Negative) U Methamphetamines Scrn (Negative) Ur MDMA Scrn (Ecstasy) (Negative) U Benzodiazepines Scrn (Negative) Urine Cocaine Screen (Negative) U Marijuana (THC) Screen (Negative) Ethyl Alcohol 223 H ( - 10) mg/dL 09/20/19 09/20/19 Range/Units 18:10 18:10 WBC (4.5-11.0) X10^3/uL RBC (4.0-5.2) X10^6/uL Hgb (12.0-16.0) g/dL Hct (36-46) % MCV (80-100) fL MCH (26-34) PG MCHC (30-36) % RDW (11.6-14.8) % Plt Count (150-400) X10^3/uL Neut % (Auto) (50-75) % Lymph % (Auto) (25-40) % [place] % (Auto) (3-14) % Eos % (Auto) (2-4) % Baso % (Auto) (0-2) % Neut # (Auto) (3154-5822) /uL Lymph # (Auto) (9240-8803) /uL [place] # (Auto) (0-900) /uL Eos # (Auto) (0-450) /uL Baso # (Auto) (0-100) /uL Sodium (137-145) mmol/L Potassium (3.4-5.1) mmol/L Chloride (98-107) mmol/L Carbon Dioxide (22-32) mmol/L BUN (7-17) mg/dL Creatinine (0.52-1.04) mg/dL Estimated GFR (>60) mL/min BUN/Creatinine Ratio (6-22) Glucose (70-100) mg/dL Calcium (8.4-10.2) mg/dL Magnesium (1.6-2.3) mg/dL Total Bilirubin (0.2-1.3) mg/dL AST (14-36) IU/L ALT (<35) IU/L Alkaline Phosphatase (38-126) U/L Total Protein (6.3-8.2) g/dL Albumin (3.5-5.0) g/dL Globulin (1.7-4.1) g/dL Albumin/Globulin Ratio (1.0-2.8) Urine Color Yellow Urine Appearance Clear Urine pH 5.5 (4.5-8.0) Ur Specific [place] <=1.005 (1.000-1.035) Urine Protein Negative (Negative) Urine Glucose (UA) Negative (Negative) g/dL Urine Ketones Negative (NEGATIVE) Urine Occult Blood Negative (Negative) Urine Nitrate Negative (Negative) Urine Bilirubin Negative (NEGATIVE) Urine Urobilinogen 0.2 (0.2) E.U./dL Ur Leukocyte Esterase Negative (NEGATIVE) Urine RBC 0-1/hpf (0-5/HPF) Urine WBC 0-1/hpf (0-5/HPF) Ur Squamous Epith Cells 0-1 /hpf (0-5/HPF) Urine Bacteria None seen (None) Ur Culture Indicated? Cult not indicated Salicylates (<20) mg/dL U Opiates 300ng/mL cut Negative (Negative) Ur Oxycodone Screen Negative (Negative) Urine Methadone Screen Negative (Negative) Acetaminophen (10-30) ug/mL Ur Barbiturates Screen Negative (Negative) U Tricyclic Antidepress Negative (Negative) Ur Phencyclidine Scrn Negative (Negative) Ur Amphetamines Screen Negative (Negative) U Methamphetamines Scrn Negative (Negative) Ur MDMA Scrn (Ecstasy) Negative (Negative) U Benzodiazepines Scrn Negative (Negative) Urine Cocaine Screen Negative (Negative) U Marijuana (THC) Screen Negative (Negative) Ethyl Alcohol ( - 10) mg/dL Discharge Plan Departure Patient Disposition: Admitted As Inpatient Clinical Impression: Respiratory failure Qualifiers: Chronicity: acute Respiratory failure complication: hypoxia Qualified Code(s): J96.01 - Acute respiratory failure with hypoxia Benzodiazepine overdose Qualifiers: Encounter type: initial encounter Injury intent: intentional self-harm Qualified Code(s): T42.4X2A - Poisoning by benzodiazepines, intentional self- harm, initial encounter Admit Date/Time: 09/20/19 18:32 Admit Provider: Amauri Reddy ED Sign-out Cosign ED Attending Cosignature Attestation: I was immediately available in the department for consultation. This documentation has been reviewed and I agree with assessment and plan. Supervised by Hammad Pierre DO
[2019-09-20] MEDS: SODIUM CHLORIDE 0.9% 1,000 ML 1000 ML IV (17:20)
[2019-09-20 17:25] LABS: Add Manual Diff / Slide Review NO; Basophils Absolute Auto 0 /uL (0-100); Basophils Percent Auto 0.2 % (0-2); Eosinophils Absolute Auto 100 /uL (0-450); Eosinophils Percent Auto 1.8 % (2-4); Hematocrit 43.2 % (36-46); Lymphocytes Absolute Auto 3000 /uL (1100-4500); Lymphocytes Percent Auto 42.7 % (25-40); Mean Corpuscular HGB Conc 34.7 % (30-36); Monocytes Absolute Auto 600 /uL (0-900); Neutrophils Absolute Auto 3300 /uL (1500-7000); Neutrophils Percent Auto 47.3 % (50-75); Platelet Count 172 X10^3/uL (150-400); Red Blood Cell Count 4.54 X10^6/uL (4.0-5.2); Red Cell Distribution Width 12.9 % (11.6-14.8)
--- NOTE | 2019-09-20 17:27 | DI.CT.S_ITS ---
PROCEDURE: CT CHEST WO CON INDICATIONS: severe mental status change, overdose, high risk COVID TECHNIQUE: Noncontrast 5 mm thick sections acquired from the pulmonary apices to the posterior costophrenic angles. 1 mm lung window, 5 mm thick coronal and sagittal and 7 mm axial MIP reformats were then acquired. For radiation dose reduction, the following was used: automated exposure control, adjustment of mA and/or kV according to patient size. COMPARISON: None. FINDINGS: Image quality: Suboptimal related to breathing motion artifact. Lungs and pleura: No focal consolidation, effusion, or pneumothorax is identified. Respiratory motion within the lung apices results in suboptimal dilation for subtle left alities within this region. There appears to be areas of mild posterior bilateral costophrenic angle atelectasis. No lung mass or obvious pulmonary nodule is appreciated. Mediastinum: Heart size is normal. No pericardial effusion. No mediastinal adenopathy by size criteria. Thoracic aorta and central pulmonary arteries are normal in size. Esophagus is normal in caliber. No hiatal hernia. Bones and chest wall: No suspicious bony lesions. No vertebral body compression fractures. No axillary or supraclavicular adenopathy by size criteria. Thyroid gland is not enlarged for adequately characterized on CT. Abdomen: Visualized upper abdominal solid organs and bowel loops appear normal in the absence of contrast. IMPRESSION: Negative chest CT. No acute cardiopulmonary process is evident. Dictated by: Scott Aguirre M.D. on 09/20/2019 at 16:49 Approved by: Scott Aguirre M.D. on 09/20/2019 at 16:50
[2019-09-20 17:30] LABS: Acetaminophen < 10 ug/mL (10-30); Alanine Aminotransferase 24 IU/L (<35); Albumin 4.6 g/dL (3.5-5.0); Albumin Globulin Ratio 1.4 (1.0-2.8); Alkaline Phosphatase 90 U/L (38-126); Aspartate Aminotransferase 35 IU/L (14-36); BUN Creatinine Ratio 17.9 (6-22); Bilirubin Total 0.5 mg/dL (0.2-1.3); Blood Urea Nitrogen 14 mg/dL (7-17); Calcium 9.6 mg/dL (8.4-10.2); Carbon Dioxide 18 mmol/L (22-32); Chloride 106 mmol/L (98-107); Estimated Glomerular Filt Rate > 60.0 mL/min (>60); Ethanol (ETOH) 223 mg/dL; Globulin 3.2 g/dL (1.7-4.1); Glucose 132 mg/dL (70-100); HEMOLYSIS < 15 (0-50); Magnesium 2.1 mg/dL (1.6-2.3); Potassium 3.7 mmol/L (3.4-5.1); Salicylate < 1.0 mg/dL (<20); Sodium 139 mmol/L (137-145); Total Protein 7.8 g/dL (6.3-8.2)
--- NOTE | 2019-09-20 17:33 | DI.RAD.S_ITS ---
PROCEDURE: XR CHEST 1V INDICATIONS: post intubation, ng tube placement, et tube TECHNIQUE: One view of the chest was acquired. COMPARISON: [facility], CT, CT CHEST WO CON, 09/20/2019, 17:25. [facility], CR, CHEST 2 VIEW, 04/12/2017, 11:57. FINDINGS: Surgical changes and devices: Endotracheal tube tip projects approximately 3.7 cm above the karin. Nasogastric tube is in place with the distal tip extending below the level of the diaphragm. Lungs and pleura: Lungs are clear. No pleural effusions or pneumothorax. Mediastinum: Mediastinal contours appear normal. Heart size is normal. Bones and chest wall: No suspicious bony lesions. Overlying soft tissues appear unremarkable. IMPRESSION: Status post placement of nasogastric tube and endotracheal tube as described above. No acute cardiopulmonary abnormality seen. Dictated by: Rommel Malik M.D. on 09/20/2019 at 18:24 Approved by: Rommel Malik M.D. on 09/20/2019 at 18:29
[2019-09-20] MEDS: SODIUM CHLORIDE 0.9% 1,000 ML 150 ML IV (17:46)
[2019-09-20] MEDS: KETAMINE 500 MG/5 ML INJ 80 MG IV (17:47)
[2019-09-20] MEDS: ROCURONIUM 50 MG/5 ML INJ 80 MG IV (17:50)
--- NOTE | 2019-09-20 17:52 | PC.NURSE ---
1710: Pt arrived via EMS--per patient ingested anywhere from 25-45 tabs Clonazepam 1mg. Drank 3/4th bottle champagne. Slurring words, drowsy. Maintaining airway at this time. attached to cardiac monitoring, EKG obtained. labs obtained by EMS. 2nd line placed. 1730: Pt moved to [address] Pierre to protect airway. Pt taken to and from CT/XR. 174: RT, Dr Pierre, RN x 2 in room for intubation. Rocuronium and Ketamine given per AUG for RSI. Pt intubated 8.0 ETT 22@ teeth. BL breath sounds, +color change. 450/60/16/5. OG placed to suction with blue fluid and pill fragments noted in tubing. 1803: Propofol gtt infusing per AUG. CXR for ETT/OG confirmation. 1807: 16 F Rodriguez placed with 1000mL initial output. Fentanyl 100mcg IVP given per MAR for pain control.
[2019-09-20] MEDS: propofoL 1,000 MG/100 ML VIAL 2.381 MG IV (18:00)
[2019-09-20] MEDS: fentaNYL 100 MCG/2 ML INJ IV ×4 (18:02→22:40)
[2019-09-20 18:22] LABS: Bacteria Urine None Seen
[2019-09-20 18:30] LABS: Appearance Urine UA CLEAR; Bilirubin Urine UA NEGATIVE (NEGATIVE); Color Urine UA YELLOW; Glucose Urine UA NEGATIVE (Negative); Ketones Urine UA NEGATIVE (NEGATIVE); Leukocyte Esterase Urine UA NEGATIVE (NEGATIVE); Nitrite Urine UA NEGATIVE (Negative); Occult Blood Urine UA NEGATIVE (Negative); Protein Urine UA NEGATIVE (Negative); Specific Gravity Urine UA <=1.005 (1.000-1.035); UR Morphine/Opiate cutoff 300 Negative (Negative); Ur Creatinine Normal (Normal); Ur Specific Gravity Normal (Normal); Urine Amphetamines Negative (Negative); Urine Barbiturates Negative (Negative); Urine Benzodiazepines Negative (Negative); Urine Cocaine Negative (Negative); Urine MDMA Negative (Negative); Urine Methadone Negative (Negative); Urine Methamphetamines Negative (Negative); Urine Oxycodone Negative (Negative); Urine Phencyclidine Negative (Negative); Urine Tetrahydrocannabinol Negative (Negative); Urine Tricyclic Antidepressant Negative (Negative); Urine pH Normal (Normal); Urobilinogen Urine UA 0.2 E.U./dL (0.2); pH Urine UA 5.5 (4.5-8.0)
[2019-09-20 18:32] LABS: Culture Indicated Urine Cult Not Indicated; RBC Urine 0-1/HPF (0-5/HPF); Squamous Epithelial Cell Urine 0-1 /HPF (0-5/HPF); WBC Urine 0-1/HPF (0-5/HPF)
--- NOTE | 2019-09-20 18:57 | PC.NURSE ---
RT in for ABG while vent is set up in ICU. Report called to ICU. N: intubated sedated. On propofol per MAR, PERRL. C: NSR 60's without ectopy BP 140's, 2+ peripheral pulses, no edema noted P: B/L BS, equal rise and fall, 8.0 ETT 22@ teeth, vent settings 450/40/16/5 GI: OG in place to LIS : 16F robles draining clear yellow urine. Superficial scrapes to R wrist noted.
--- NOTE | 2019-09-20 18:59 | PM.HP.1 ---
History of Present Illness History of Present Illness Date Patient Seen: 09/20/19 Time Patient Seen: 18:30 Chief complaint: intentional overdose Narrative: Patient is a 54-year-old female who was transported to emergency department by medics after intentional drug overdose in suicide attempt. She had sent a text to her family about desire to hurt herself. By the time I saw her in ER she was intubated due to inability to protect her airway. Per ER provider, she was awake, tearful and conversant when evaluated by EMS. She told ER provider that she had taken 25 to 45 tablets of 1 mg clonazepam and drank a bottle of champagne in effort to kill herself. Patient works at [employer]. A noncontrast chest CT was done in ER prior to intubation to rule out COVID 19. Patient was intubated with ketamine and rocuronium. She was then put on propofol drip. Urine toxicology negative, ethyl alcohol to 123, acetaminophen less than 10, salicylates less than 1.0. Patient History Medical History Depression (11/05/13) Diverticulitis (Acute) Family & Social History Social History: household members family Safety & Behavioral: Feels Safe in Current Yes Environment Been Physically Hurt or No Threatened By a Person Tobacco & Substance use: Smoking Status Never smoker alcohol intake frequency 0-2 drinks per day Substance Use Type does not use Meds Home Medications and Allergies Home Medications Medication Instructions Recorded Confirmed Type clonazepam 1 mg PO BEDTIME #0 08/15/17 05/02/19 History acetaminophen 650 mg PO Q6HR PRN #30 tab 05/03/19 Rx hydrocodone-acetaminophen 1 tab PO Q8H PRN #10 tab 05/03/19 Rx ondansetron HCl 4 mg PO Q6H PRN #10 tab 05/03/19 Rx Allergies Allergy/AdvReac Type Severity Reaction Status Date / Time sulfamethoxazole AdvReac Mild N/V Verified 05/01/19 18:49 [From Bactrim] trimethoprim [From Bactrim] AdvReac Mild N/V Verified 05/01/19 18:49 Review of Systems Review of Systems ROS: Yes unobtainable due to endotracheal tube Exam Vital Signs (past 8 hours): - 09/20/19 17:05 09/20/19 17:11 09/20/19 17:19 Temperature 97.8 F Pulse Rate 106 H 84 Respiratory Rate 14 20 Blood Pressure 161/104 H Blood Pressure [Left Arm] 161/104 H 140/99 H Pulse Oximetry 97 94 09/20/19 17:25 09/20/19 17:43 09/20/19 17:44 Temperature Pulse Rate 81 80 73 Respiratory Rate 19 19 22 Blood Pressure Blood Pressure [Left Arm] 142/96 H 133/90 133/90 Pulse Oximetry 94 94 97 09/20/19 17:45 09/20/19 17:49 09/20/19 17:50 Temperature Pulse Rate 81 85 94 H Respiratory Rate 19 10 L 16 Blood Pressure Blood Pressure [Left Arm] 127/88 140/97 H 167/112 H Pulse Oximetry 95 98 09/20/19 18:00 09/20/19 18:10 09/20/19 18:20 Temperature Pulse Rate 90 82 75 Respiratory Rate 16 16 16 Blood Pressure Blood Pressure [Left Arm] 183/112 H 151/100 H 141/101 H Pulse Oximetry 97 97 97 09/20/19 18:48 09/20/19 18:56 Temperature Pulse Rate 67 65 Respiratory Rate 16 16 Blood Pressure 184/124 H Blood Pressure [Left Arm] 143/93 H Pulse Oximetry 100 100 Oxygen Delivery Method Room Air Narrative Exam Narrative: General: Patient is sedated and on the vent HEENT: Atraumatic, pupils equal and reactive bilaterally Lungs: Clear to auscultation Heart: Regular rhythm Abdomen: Non distended, no HSM Extremities: Warm and dry, No edema Neurological: Sedated Objective Labs Result Diagrams: 09/20/19 17:00 09/20/19 17:00 Labs: Laboratory Results - last 24 hr 09/20/19 09/20/19 09/20/19 17:00 17:00 17:00 WBC 7.0 RBC 4.54 Hgb 15.0 Hct 43.2 MCV 95.0 MCH 33.0 MCHC 34.7 RDW 12.9 Plt Count 172 Neut % (Auto) 47.3 L Lymph % (Auto) 42.7 H [place] % (Auto) 8.0 Eos % (Auto) 1.8 L Baso % (Auto) 0.2 Neut # (Auto) 3300 Lymph # (Auto) 3000 [place] # (Auto) 600 Eos # (Auto) 100 Baso # (Auto) 0 Sodium 139 Potassium 3.7 Chloride 106 Carbon Dioxide 18 L BUN 14 Creatinine 0.78 Estimated GFR > 60.0 BUN/Creatinine Ratio 17.9 Glucose 132 H Calcium 9.6 Magnesium 2.1 Total Bilirubin 0.5 AST 35 ALT 24 Alkaline Phosphatase 90 Total Protein 7.8 Albumin 4.6 Globulin 3.2 Albumin/Globulin Ratio 1.4 Urine Color Urine Appearance Urine pH Ur Specific [place] Urine Protein Urine Glucose (UA) Urine Ketones Urine Occult Blood Urine Nitrate Urine Bilirubin Urine Urobilinogen Ur Leukocyte Esterase Urine RBC Urine WBC Ur Squamous Epith Cells Urine Bacteria Ur Culture Indicated? Salicylates < 1.0 U Opiates 300ng/mL cut Ur Oxycodone Screen Urine Methadone Screen Acetaminophen < 10 L Ur Barbiturates Screen U Tricyclic Antidepress Ur Phencyclidine Scrn Ur Amphetamines Screen U Methamphetamines Scrn Ur MDMA Scrn (Ecstasy) U Benzodiazepines Scrn Urine Cocaine Screen U Marijuana (THC) Screen Ethyl Alcohol 223 H 09/20/19 09/20/19 18:10 18:10 WBC RBC Hgb Hct MCV MCH MCHC RDW Plt Count Neut % (Auto) Lymph % (Auto) [place] % (Auto) Eos % (Auto) Baso % (Auto) Neut # (Auto) Lymph # (Auto) [place] # (Auto) Eos # (Auto) Baso # (Auto) Sodium Potassium Chloride Carbon Dioxide BUN Creatinine Estimated GFR BUN/Creatinine Ratio Glucose Calcium Magnesium Total Bilirubin AST ALT Alkaline Phosphatase Total Protein Albumin Globulin Albumin/Globulin Ratio Urine Color Yellow Urine Appearance Clear Urine pH 5.5 Ur Specific [place] <=1.005 Urine Protein Negative Urine Glucose (UA) Negative Urine Ketones Negative Urine Occult Blood Negative Urine Nitrate Negative Urine Bilirubin Negative Urine Urobilinogen 0.2 Ur Leukocyte Esterase Negative Urine RBC 0-1/hpf Urine WBC 0-1/hpf Ur Squamous Epith Cells 0-1 /hpf Urine Bacteria None seen Ur Culture Indicated? Cult not indicated Salicylates U Opiates 300ng/mL cut Negative Ur Oxycodone Screen Negative Urine Methadone Screen Negative Acetaminophen Ur Barbiturates Screen Negative U Tricyclic Antidepress Negative Ur Phencyclidine Scrn Negative Ur Amphetamines Screen Negative U Methamphetamines Scrn Negative Ur MDMA Scrn (Ecstasy) Negative U Benzodiazepines Scrn Negative Urine Cocaine Screen Negative U Marijuana (THC) Screen Negative Ethyl Alcohol Assessment & Plan Assessment & Plan narrative: 1. Intentional drug overdose in suicide attempt -as noted took 25 to 45 tablets of 1 mg clonazepam and drank a bottle of champagne -required intubation in ED to protect her airway -continue ventilatory management, patient may need to be on vent for more than 24 hours due to clonazepam is long-acting benzo -propofol as needed, fentanyl IV as needed -NS 100 cc/hour maintenance IV -Lovenox for DVT prophylaxis -Rodriguez catheter -RT to manage vent per routine
[2019-09-20 19:11] LABS: pH ABG 7.39 (7.35-7.45)
[2019-09-20 19:12] LABS: HCO3 ABG 19 mmol/L (22-26); Oxygen Saturation ABG 99 % (95-100); PCO2 ABG 31.4 mmHg (35-45); PO2 ABG 151 mmHg (80-100); TCO2 ABG 20 mmol/L (21-31)
[2019-09-20] MEDS: propofoL 1,000 MG/100 ML VIAL 11.907 MG IV (19:30)
--- NOTE | 2019-09-20 19:38 | PC.NURSE ---
Addendum entered by Nicolette Khanna R.N. 09/20/19 22:42: Pt turned and repositioned. Opening eyes to voice and nodded head yes to understanding when nurse explained where she was, the ETT in her mouth and that her two daughters love her and are thinking about her. Spoke to son in law Brodie over phone for updates. Primary next of kin Reina Chawla [phone]. Reported that pt does drink heavily on a regular basis - one bottle of wine or 4-5 mixed drinks a night when she does drink per son in law. Addendum entered by Nicolette Khanna R.N. 09/20/19 20:56: Oral and inline suction completed. Oral hygiene with swabs. Original Note: Pt admitted from ER. RT at bedside. Transferred without incidient. ET 8.0 24 at teeth, suctioned inline and orally. Sats 100% FiO2 40% 460/16/5. Propofol increased to 25 on arrival and 50mcg IV Fentanyl given for agitation. B 20g PIV in hands patent. NS@150cc/hr on arrival- will follow up with rate when orders acknowledged. Restraints in place per protocol. BP 180/128, HR 66 NSR. Temp 96.5
[2019-09-21] VITALS (25 sets, daily range): BP systolic 104–177; BP diastolic 59–106; PULSE 63–116; RESP 15–30; TEMP 36.5–38.6; O2SAT 92–100; BMI 27.8
[2019-09-21] MEDS: propofoL 1,000 MG/100 ML VIAL 12.859 MG IV (01:28)
--- NOTE | 2019-09-21 01:56 | PC.NURSE ---
Addendum entered by Leeann Mcgowan R.N. 09/21/19 05:30: At 0510, pt had cough and vent was alarming, required suction and pt was able to write water. Oral care was done and pt was able to answer question with nod of the head. Propofol was increased to 38mcg /hr at that time. Within 10 patient appeared more comfortable. Addendum entered by Leeann Mcgowan R.N. 09/21/19 02:22: At 0215 Pt had a dip in O2 sat to 88%, she was coughing and required suctioning, she became very restless and attempted to reach for the vent tubing. O2 was given, Propofol increased to 35mcg/hr and a PRN dose of Fentanyl was given. Pt was repostioned and RT was notified. Pt is calm at this time. Original Note: Noc note: Pt EDIS score at 0000 was -3, RT was in and suctioned pt and put her on RA with the vent, after RT left the pt became restless, Propofol was increased to 30mcg/hr until, at 0112 Pt CARLTON was -8 and O2 sat had dipped to 88-89%. Propofol was decreased to 27mcg/hr, O2 was given for a few breathes and pt O2 returned to 93-97% with a EDIS score of -2
[2019-09-21] MEDS: fentaNYL 100 MCG/2 ML INJ IV (02:12)
[2019-09-21] MEDS: fentaNYL 100 MCG/2 ML INJ 28 MCG IV (04:16)
--- NOTE | 2019-09-21 07:31 | P.PN_ITS ---
Subjective Subjective Date Patient Seen: 09/21/19 Interval history: Kamila Chawla is a 54-year-old female with a past medical history significant for depression who presented to the ED after intentional benzodiazepine overdose in a suicide attempt. History of present illness and review of systems unobtainable as patient is intubated and sedated. Patient is stable on ventilator with good tidal volumes and on room air. Patient is appropriate and follows commands when sedation has been lightened. Plan to wean off of sedation and potentially extubate later this morning. Exam Vital Signs (past 8 hours): - 09/20/19 23:57 09/21/19 01:00 09/21/19 02:00 Temperature 96.3 F L Pulse Rate 61 67 Respiratory Rate 16 Blood Pressure 119/94 H 128/86 165/100 H Pulse Oximetry 100 09/21/19 03:00 09/21/19 04:00 09/21/19 05:00 Temperature 97.7 F Pulse Rate 82 83 90 Respiratory Rate 16 Blood Pressure 129/76 167/105 H 167/98 H Pulse Oximetry 100 09/21/19 06:00 Temperature Pulse Rate 90 Respiratory Rate Blood Pressure 174/99 H Pulse Oximetry Fraction of Inspired Oxygen 40 Oxygen Delivery Method Room Air,Mechanical Ventilation Narrative Exam Narrative: General: Patient intubated and sedated but when sedation lightened the patient is appropriate and follows commands. HEENT: Normocephalic, atraumatic. External ears without defect. Pupils pinpoint, equal, round, and reactive to light. Anicteric sclerae and moist conjunctivae. Endotracheal tube in place. Neck: No jugular venous distension. No lymphadenopathy or thyromegaly. Cardiovascular: Regular rate and rhythm without murmurs, rubs, or gallops appreciated Pulmonary: Clear to auscultation bilaterally without crackles, wheezes, or rhonchi. Passive respirations on ventilator. Abdomen: Soft, bowel sounds present, nondistended. No hepatosplenomegaly or masses appreciated. Extremities: No clubbing, cyanosis, or edema. Skin: Normal temperature, turgor, and texture; no rash, ulcers, or subcutaneous nodules appreciated. Objective Labs Result Diagrams: 09/20/19 17:00 09/21/19 07:52 Labs: Laboratory Results - last 24 hr 09/20/19 09/20/19 09/20/19 17:00 17:00 17:00 WBC 7.0 RBC 4.54 Hgb 15.0 Hct 43.2 MCV 95.0 MCH 33.0 MCHC 34.7 RDW 12.9 Plt Count 172 Neut % (Auto) 47.3 L Lymph % (Auto) 42.7 H [place] % (Auto) 8.0 Eos % (Auto) 1.8 L Baso % (Auto) 0.2 Neut # (Auto) 3300 Lymph # (Auto) 3000 [place] # (Auto) 600 Eos # (Auto) 100 Baso # (Auto) 0 ABG pH ABG pCO2 ABG pO2 ABG HCO3 ABG Total CO2 ABG O2 Saturation ABG Base Excess FiO2 Sodium 139 Potassium 3.7 Chloride 106 Carbon Dioxide 18 L BUN 14 Creatinine 0.78 Estimated GFR > 60.0 BUN/Creatinine Ratio 17.9 Glucose 132 H Calcium 9.6 Magnesium 2.1 Total Bilirubin 0.5 AST 35 ALT 24 Alkaline Phosphatase 90 Total Protein 7.8 Albumin 4.6 Globulin 3.2 Albumin/Globulin Ratio 1.4 Urine Color Urine Appearance Urine pH Ur Specific [place] Urine Protein Urine Glucose (UA) Urine Ketones Urine Occult Blood Urine Nitrate Urine Bilirubin Urine Urobilinogen Ur Leukocyte Esterase Urine RBC Urine WBC Ur Squamous Epith Cells Urine Bacteria Ur Culture Indicated? Nasal Screen MRSA (PCR) Salicylates < 1.0 U Opiates 300ng/mL cut Ur Oxycodone Screen Urine Methadone Screen Acetaminophen < 10 L Ur Barbiturates Screen U Tricyclic Antidepress Ur Phencyclidine Scrn Ur Amphetamines Screen U Methamphetamines Scrn Ur MDMA Scrn (Ecstasy) U Benzodiazepines Scrn Urine Cocaine Screen U Marijuana (THC) Screen Ethyl Alcohol 223 H 09/20/19 09/20/19 09/20/19 18:10 18:10 19:00 WBC RBC Hgb Hct MCV MCH MCHC RDW Plt Count Neut % (Auto) Lymph % (Auto) [place] % (Auto) Eos % (Auto) Baso % (Auto) Neut # (Auto) Lymph # (Auto) [place] # (Auto) Eos # (Auto) Baso # (Auto) ABG pH 7.39 ABG pCO2 31.4 L ABG pO2 151 H ABG HCO3 19 L ABG Total CO2 20 L ABG O2 Saturation 99 ABG Base Excess -6.0 L FiO2 0.40 Sodium Potassium Chloride Carbon Dioxide BUN Creatinine Estimated GFR BUN/Creatinine Ratio Glucose Calcium Magnesium Total Bilirubin AST ALT Alkaline Phosphatase Total Protein Albumin Globulin Albumin/Globulin Ratio Urine Color Yellow Urine Appearance Clear Urine pH 5.5 Ur Specific [place] <=1.005 Urine Protein Negative Urine Glucose (UA) Negative Urine Ketones Negative Urine Occult Blood Negative Urine Nitrate Negative Urine Bilirubin Negative Urine Urobilinogen 0.2 Ur Leukocyte Esterase Negative Urine RBC 0-1/hpf Urine WBC 0-1/hpf Ur Squamous Epith Cells 0-1 /hpf Urine Bacteria None seen Ur Culture Indicated? Cult not indicated Nasal Screen MRSA (PCR) Salicylates U Opiates 300ng/mL cut Negative Ur Oxycodone Screen Negative Urine Methadone Screen Negative Acetaminophen Ur Barbiturates Screen Negative U Tricyclic Antidepress Negative Ur Phencyclidine Scrn Negative Ur Amphetamines Screen Negative U Methamphetamines Scrn Negative Ur MDMA Scrn (Ecstasy) Negative U Benzodiazepines Scrn Negative Urine Cocaine Screen Negative U Marijuana (THC) Screen Negative Ethyl Alcohol 09/20/19 19:30 WBC RBC Hgb Hct MCV MCH MCHC RDW Plt Count Neut % (Auto) Lymph % (Auto) [place] % (Auto) Eos % (Auto) Baso % (Auto) Neut # (Auto) Lymph # (Auto) [place] # (Auto) Eos # (Auto) Baso # (Auto) ABG pH ABG pCO2 ABG pO2 ABG HCO3 ABG Total CO2 ABG O2 Saturation ABG Base Excess FiO2 Sodium Potassium Chloride Carbon Dioxide BUN Creatinine Estimated GFR BUN/Creatinine Ratio Glucose Calcium Magnesium Total Bilirubin AST ALT Alkaline Phosphatase Total Protein Albumin Globulin Albumin/Globulin Ratio Urine Color Urine Appearance Urine pH Ur Specific [place] Urine Protein Urine Glucose (UA) Urine Ketones Urine Occult Blood Urine Nitrate Urine Bilirubin Urine Urobilinogen Ur Leukocyte Esterase Urine RBC Urine WBC Ur Squamous Epith Cells Urine Bacteria Ur Culture Indicated? Nasal Screen MRSA (PCR) Negative for mrsa Salicylates U Opiates 300ng/mL cut Ur Oxycodone Screen Urine Methadone Screen Acetaminophen Ur Barbiturates Screen U Tricyclic Antidepress Ur Phencyclidine Scrn Ur Amphetamines Screen U Methamphetamines Scrn Ur MDMA Scrn (Ecstasy) U Benzodiazepines Scrn Urine Cocaine Screen U Marijuana (THC) Screen Ethyl Alcohol Assessment & Plan Assessment & Plan narrative: Kamila Chawla is a 54-year-old female with a past medical history significant for depression who presented to the ED after intentional benzodiazepine overdose in a suicide attempt. 1. Intentional drug overdose in suicide attempt, present on admission. Active. -Patient reportedly took between 25 to 45 tablets of 1 mg clonazepam and drank a bottle of champagne. -Eduard required intubation in ED to protect her airway. Continue current ventilator settings. Patient is awake, alert and able to follow commands with minimal sedation. Plan to stop sedation with propofol gtt and fentanyl boluses and extubate today. -Continue respiratory therapy evaluation and treament. -Consulted [facility] for behavioral health placement once patient is medically cleare d. If patient becomes involuntary will place on 72 hour involuntary hold and contact [facility]. Code status:Full Code DVT prophylaxis: Enoxaparin Disposition: Patient will likely discharge to inpatient behavioral health in next 1-2 days once medically stable and cleared.
[2019-09-21 08:12] LABS: Alanine Aminotransferase 22 IU/L (<35); Albumin Globulin Ratio 1.3 (1.0-2.8); Alkaline Phosphatase 94 U/L (38-126); Aspartate Aminotransferase 30 IU/L (14-36); BUN Creatinine Ratio 12.8 (6-22); Bilirubin Total 0.8 mg/dL (0.2-1.3); Blood Urea Nitrogen 12 mg/dL (7-17); Calcium 9.2 mg/dL (8.4-10.2); Carbon Dioxide 26 mmol/L (22-32); Chloride 109 mmol/L (98-107); Estimated Glomerular Filt Rate > 60.0 mL/min (>60); Globulin 3.1 g/dL (1.7-4.1); Glucose 94 mg/dL (70-100); HEMOLYSIS 15 (0-50); Magnesium 1.6 mg/dL (1.6-2.3); Sodium 140 mmol/L (137-145); Total Protein 7.1 g/dL (6.3-8.2)
[2019-09-21] MEDS: ENOXAPARIN 40 MG/0.4 ML SYRINGE SUBCUT (08:15)
[2019-09-21] MEDS: fentaNYL 100 MCG/2 ML INJ 50 MCG IV (08:19)
[2019-09-21] MEDS: propofoL 1,000 MG/100 ML VIAL 26.195 MG IV (08:20)
--- NOTE | 2019-09-21 08:48 | PC.NURSE ---
Addendum entered by Jessica Morgan R.N. 09/21/19 11:43: pt indicating she would like robles catheter out - denies pain but does nod yes to being disappointed that this attempt did not work- This RN called and updated daughter- KUMAR, that her mother was breathing on her own and just sleepy- she indicated relief Addendum entered by Jessica Morgan R.N. 09/21/19 10:36: pt able to be weaned from propofol and extubated at 1008 this am- resting on 2l nc @ 100% - restraints removed at that time as well- Original Note: UPDATE TO DAUGHTER- KUMAR, ABOUT THE NO VISITORS AT THIS TIME- SHE WAS TEARFUL BUT UNDERSTANDING
--- NOTE | 2019-09-21 12:07 | CM.DANOTE ---
DCP Breif Assessment: EMR reviewed. Patient is a 54 yr old female who was admitted for Intentional Overdose - Suicide attempt. PCP is listed as Dr. Fitzgerald. Patient was intubated at time of CM/RN visit and will need to follow up with patient for D/C plan once patient is stable. SI evaluation needs to be completed to determine if patient needs Voluntary or in-voluntary mental health inpatient treatment for SI. This will be preformed once patient is medically stable and cleared. I: [facility] Padmini Daniel RN Discharge Planning/Care Management CM Discharge Assessment Start: 09/21/19 12:04 Freq: Status: Active Protocol: Document 09/21/19 12:04 HS (Rec: 09/21/19 12:07 [id number]) Discharge Planning Assessment Assigned Road Cutter Padmini Daniel RN DPOA/Assigned Designee Name Piper Chawla (daughter) Contact Information [phone] Advance Directives? No Advance Directives on File No History Provided By Medical Record Has Patient been admitted in last 30 No days? Prior Living Arrangements House Household Members family Type of transporation used prior to Drives own vehicle admit Independent with ADL's Yes Is patient alert and oriented? No: Patient intubated Caregiver for Another Yes Barriers to Discharge Yes Comment Patient will need a SI/ Mental Health evaluation pending medical clearance Discharge Plan Psychiatric Facility Referrals Initiated Other Additional Comment After SI/ mental health Evaluation- Voluntary vs involuntary metal health inpatient treatment will be considered Whiteboard Updated in Patient Room with Yes name and ext. # of Road Cutter Review Status In Process Next Review Type Continued Stay Review
[2019-09-21] MEDS: SODIUM CHLORIDE 0.9% 1,000 ML 100 ML IV ×2 (12:57→22:28)
[2019-09-21] MEDS: THIAMINE 100 MG TABLET PO (17:02)
--- NOTE | 2019-09-21 17:21 | PC.NURSE ---
1545 Pt states that she wants to go home, I reminded her that she has agreed to go into a facility after she is discharged from the hospital. At that time she closed her eyes and refused to respond to questions. 1710 Lying on left side with dinner tray on table next to her, asked her if I could get her anything else, stated my discharge papers I explained that I can't do that, pt states it doesn't hurt to ask. No further needs at this time, will continue to monitor.
--- NOTE | 2019-09-22 01:57 | PC.NURSE ---
NOC note: Pt is A&O, allowed assessment, LS coarse rhonchi throughout with occ cough. Pt denies nausea and denies SOB. Pt somewhat withdrawn and minimal verbalitaion with staff at this time.
[2019-09-22 04:50] VITALS: BP 111/73; PULSE 64; RESP 18; TEMP 36.5; O2SAT 99
--- NOTE | 2019-09-22 08:16 | CM.SWNOTE ---
TRIGONOMETRY TUTOR note: Placed call to [facility] this AM. They did not receive fax yesterday. Therefore, re-faxed clinical to them at [phone]. Awaiting decision on whether or not they can accept? In addition, awaiting medical clearance. P: [facility] evaluating for admit. DOMINGA Gastelum
[2019-09-22 08:19] VITALS: BP 116/79; PULSE 79; RESP 18; O2SAT 97
[2019-09-22 08:41] VITALS: TEMP 36.6
--- NOTE | 2019-09-22 09:36 | PC.NURSE ---
Addendum entered by Jessica Morgan R.N. 09/22/19 15:34: REPORT GIVEN TO [facility] Addendum entered by Jessica Morgan R.N. 09/22/19 15:24: pt voluntary to [facility] in [place] - left at this time- attempted to call report and they were unable to take report at this time- Addendum entered by Jessica Morgan R.N. 09/22/19 11:31: pt resting comfortably in bed after brushing her teeth at sink- remains a 1-1 Addendum entered by Jessica Morgan R.N. 09/22/19 11:02: sat with pt on her bed during mop maker visit- pt tearful and resistant to conversation- she does finally agree to go voluntarily- giancarlo Knox to call and find in-pt bed for her- removed iv access x 2 in bilat hands- Original Note: pt answering with single-word responses and/or head nod-shakes upon questioning- she declined having breakfast and continues to just rest or sleep- all vss, afebrile and is obviously withdrawn
--- NOTE | 2019-09-22 10:26 | P.DS_ITS ---
History of Present Illness History of Present Illness Date Patient Seen: 09/20/19 Chief complaint: intentional overdose Narrative: Written by Dr. Reddy: Patient is a 54-year-old female who was transported to emergency department by medics after intentional drug overdose in suicide attempt. She had sent a text to her family about desire to hurt herself. By the time I saw her in ER she was intubated due to inability to protect her airway. Per ER provider, she was awak e, tearful and conversant when evaluated by EMS. She told ER provider that she had taken 25 to 45 tablets of 1 mg clonazepam and drank a bottle of champagne in effort to kill herself. Patient works at [employer]. A noncontrast chest CT was done in ER prior to intubation to rule out COVID 19. Patient was intubated with ketamine and rocuronium. She was then put on propofol drip. Urine toxicology negative, ethyl alcohol to 123, acetaminophen less than 10, salicylates less than 1.0. Discharge Providers Provider Date of admission: 09/20/19 18:32 Discharge Date: 09/22/19 Primary care physician: Kamila Fitzgerald DO Discharge provider: Tammie Diez DO Summary Hospital Course Discharge Diagnosis: 1. Intentional drug overdose in suicide attempt, present on admission. Resolved. Hospital Course: Kamila Chawla is a 54-year-old female with a past medical history significant for depression who presented to the ED after intentional benzodiazepine overdose in a suicide attempt. 1. Intentional drug overdose in suicide attempt, present on admission. Resolved. -Patient reportedly took between 25 to 45 tablets of 1 mg clonazepam and drank a bottle of champagne. Alcohol level 223. Patient's family reported daily alcohol consumption but the patient adamantly denied. Continued to monitor for signs of alcohol withdrawal for which the patient did not have throughout hospitalization. -Patient required intubation in ED to protect her airway. Continued respiratory therapy evaluation and treatment. Continued sedation with propofol gtt and fentanyl boluses. Patient was on room air with ventilator with good tidal volumes 400-500 mL. Once sedation was lightened and the patient was following commands she was successfully extubated. -Received alprazolam 0.5 mg as needed for anxiety and to avoid benzodiapine withdrawal. -[place] [facility] [place]. Patient was voluntary and discharged to [facility] for treatment. Patient reported to two nursing staff that she plans to say and do whatever necessary to be released from behavioral treatment and has a plan in place to successfully commit suicide. Exam Vital Signs (past 8 hours): - 09/22/19 04:50 09/22/19 08:19 09/22/19 08:41 Temperature 97.7 F 97.8 F Pulse Rate 64 79 Respiratory Rate 18 18 Blood Pressure 111/73 116/79 Pulse Oximetry 99 97 Fraction of Inspired Oxygen 40 Oxygen Delivery Method Room Air Oxygen Flow Rate 0 Narrative Exam Narrative: General: Patient lying in bed and in no acute distress, well-developed, well- nourished, significantly depressed mood, remorseful and emotionally labile. HEENT: Normocephalic, atraumatic. External ears without defect. Pupils equal, round, and reactive to light. Anicteric sclerae, moist conjunctivae, and no lid lag. Mild laryngitis. Oropharynx with mild erythema, no cobble stoning and moist mucosa. Neck: Supple with full range of motion. No lymphadenopathy or thyromegaly. Cardiovascular: Regular rate and rhythm without murmurs, rubs, or gallops ap preciated. Pulmonary: Clear to auscultation bilaterally without crackles, wheezes, or rhonchi. Normal respiratory effort with no use of accessory muscles. Abdomen: Soft, bowel sounds present, nondistended. No hepatosplenomegaly or masses appreciated. Extremities: No clubbing, cyanosis, or edema. Skin: Normal temperature, turgor, and texture; no rash, ulcers, or subcutaneous nodules appreciated. Neurological: Cranial nerves grossly intact. Psychiatric: Significantly depressed mood, flat affect, remorseful, and emotionally labile. Alert and oriented to person, place, and time. Objective Labs Result Diagrams: 09/20/19 17:00 09/21/19 07:52 Discharge Plan Discharge Plan Patient Disposition: Xfer Psychiatric Hosp Discharge comment: Patient has no suspicion for COVID-19 and is medical stable and cleared for discharge to inpatient psychiatric treatment. Diet/Activity/Treatments Diet: Regular Activity: Activity as tolerated Discharge Data Primary Care Provider: Kamila Fitzgerald Discharges patient from system. Discharge Date/Time: 09/22/19 13:22
[2019-09-22] MEDS: ALPRAZolam 0.25 MG TABLET 0.5 MG PO (12:34)
--- NOTE | 2019-09-22 12:45 | CM.DPNOTE ---
DCP: Genesis from [facility] called. She was asking for additional information. Asked for a note showing that patient was extubated. Included nursing note, prog note from yesterday as well. Also, gave height and weight, as well. Included ER note, which shows what type of medications that she had taken. Genesis's fax number is: [phone]. Sent her information. Macy Sam RN/Estate Planner
--- NOTE | 2019-09-22 14:31 | CM.SWNOTE ---
RED CAP Note: Received return phone call this AM from [facility] indicating that they now cannot accept due to the fact that patient has not been vent free x3dys. Initially, when discussing with [facility] yesterday they reported that patient only had to be off vent for 24hrs now reporting 3 days. Placed call to Genesis at [facility] in [place]. They are in agreement to review. All clinicals faxed including EKG, RED CAP notes, nursing notes and progress notes. In addition, asked CHRISTIANO/Gaby to fax to [facility], [facility], [facility], [facility], and [facility]. Several of those facilities without female bed. Other's were faxed to for review. After several phone calls to/from [facility] they has accepted today. Accepting MD at [facility] is Dr. Geronimo. RN/Jessica given number to call report to [phone]. Mental Health form for transport completed and signed by provider. accounting coordinator/Cameron to coordinate BLS non-urgent transport to [address] [id number]. Met with patient and she is aware and agreeable to plan. With patient's permission placed call to daughter/Ludy ph# [phone] she is appreciative to update. P: [facility] today via non-BLS transport. DOMINGA Gastelum
== END 2019-09-22 13:22 | DRG 918 ==
LOC: ED 18:32 → ICU 19:16
PROVIDERS: Internal Medicine; Admitting Provider Internal Medicine; Emergency Provider Emergency Medicine; PCP Family Medicine; Referring Provider Emergency Medicine; Visit Provider Internal Medicine
DX: T42.4X2A Poisoning by benzodiazepines, intentional self-harm, initial encounter (principal); F32.9 Major depressive disorder, single episode, unspecified
CPT/HCPCS: 36415; 36600; 51701; 71045; 71250; 80053; 80305; 80320; 80329; 81001; 82805; 83735; 85025; 87797; 93005; 94002; 94003; 94010; 94770; 94799; 96360; 99285; 99291; 99292; G0480; J1650; J2704; J3010

== ENCOUNTER 2020-01-17 18:41 | Emergency (ER) | payer OTHER, SELFPAY ==
[2019-09-21 10:20] VITALS: PULSE 116; RESP 16; O2SAT 93
[2019-09-21 14:54] VITALS: BMI 27.8
[2020-01-17] VITALS (11 sets, daily range): BP systolic 101–136; BP diastolic 57–87; PULSE 87–117; RESP 9–45; TEMP 37.4–38.5; O2SAT 92–99; BMI 26.6
--- NOTE | 2020-01-17 19:32 | ED.GENADULT ---
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 She was seen in urgent care earlier today diagnosed with pyelonephritis and prescribed ciprofloxacin however she has been vomiting so much after that visit that she is not able to keep her antibiotics down. She denies any diarrhea. She appears acutely ill she is tachypneic and clearly febrile with rigors but is alert and able to cooperate fully. Related Data Home Medications Medication Instructions Recorded Confirmed clonazepam 1 mg PO BEDTIME #0 08/15/17 09/21/19 Previous Rx's Medication Instructions Recorded acetaminophen 650 mg PO Q6HR PRN #30 tab 05/03/19 hydrocodone-acetaminophen 1 tab PO Q8H PRN #10 tab 05/03/19 ondansetron HCl 4 mg PO Q6H PRN #10 tab 05/03/19 prochlorperazine maleate 10 mg PO Q8H PRN #10 tab 01/17/20 Allergies Allergy/AdvReac Type Severity Reaction Status Date / Time sulfamethoxazole AdvReac Mild N/V Verified 01/17/20 18:49 [From Bactrim] trimethoprim [From Bactrim] AdvReac Mild N/V Verified 01/17/20 18:49 Review of Systems Review of Systems Narrative: Pertinent positive and negative findings as per HPI Remainder of review of systems is otherwise unremarkable for ENT: No sore throat, neck pain, ear pain CV: Chest pain, palpitations, dyspnea on exertion Respiratory: Cough, wheeze, dyspnea MS: Muscle weakness, numbness, joint swelling or warmth Skin: Rashes, nonhealing lesions Psych: Depression, anxiety, suicidal ideation Patient History Medical History (Updated 01/17/20 @ 23:00 by Aleksandra Aguiar MD) Benzodiazepine overdose (Inactive) Depression (11/05/13) Diverticulitis (Acute) Social History household members: family Smoking Status: Never smoker Smoking Status: Never smoker alcohol intake frequency: 0-2 drinks per day Substance Use Type: does not use Exam Narrative Exam Narrative: General: Appears acutely ill flushed chills and rigors remains cognitively appropriate and Able to give a complete and coherent history. Well-nourished well-developed HEENT: Moist mucous membranes, injected sclera with reactive pupils, Neck: No JVD, supple, no cervical adenopathy Respiratory: Lungs are clear to auscultation, no wheezing no rales no rhonchi. Full and symmetrical air movement Cardiac: Tachycardic with regular rate and rhythm no murmurs no bruits Abdomen: Soft nontender good bowel tones, bilateral flank pain right greater than left Skin: Hot to the touch and dry, no rashes Neurologic: Grossly neurologically intact with no obvious asymmetries or abnormalities Extremities: No trauma, well perfused, no lower extremity edema Psych: Cooperative, appropriate insight and affect Initial Vital Signs Initial Vital Signs: Vital Signs Temperature 100.5 F H 01/17/20 18:45 Pulse Rate 117 H 01/17/20 18:45 Respiratory Rate 18 01/17/20 18:45 Blood Pressure 136/87 01/17/20 18:45 Pulse Oximetry 99 01/17/20 18:45 Course Orders Ordered: ED Orders 01/17/20 19:06 Complete Blood Count AUTO DIFF Stat Comprehensive Metabolic Panel Stat Lactate (Lactic Acid) Stat Magnesium Stat Procalcitonin Stat 01/17/20 19:50 Urinalysis and Microscopic Stat Urine Culture Stat 01/17/20 20:40 Blood Culture Stat Discontinued Medications Ceftriaxone Sodium/Dextrose (Rocephin) 2 gm in 50 mls @ 100 mls/hr IV NOW ONE Stop: 01/17/20 20:12 Last Infusion: 01/17/20 21:08 Dose: 0 mls/hr Documented by: Admin: 01/17/20 20:25 Dose: 100 mls/hr Documented by: TAM Sodium Chloride (Normal Saline 0.9%) 1,000 mls @ 1,000 mls/hr IV BOLUS ONE Stop: 01/17/20 20:42 Last Infusion: 01/17/20 21:38 Dose: 0 mls/hr Documented by: Admin: 01/17/20 20:04 Dose: 1,000 mls/hr Documented by: TAM Ketorolac Tromethamine (Toradol) 15 mg IV NOW ONE Stop: 01/17/20 19:49 Last Admin: 01/17/20 20:04 Dose: 15 mg Documented by: TAM Prochlorperazine (Compazine) 10 mg IV NOW ONE Stop: 01/17/20 19:44 Last Admin: 01/17/20 20:04 Dose: 10 mg Documented by: TAM Vital Signs Vital signs: Vital Signs - 8 hr 01/17/20 18:45 01/17/20 19:00 01/17/20 19:30 Temperature 100.5 F H Pulse Rate 117 H 113 H 109 H Respiratory Rate 18 31 H 23 Blood Pressure 136/87 Pulse Oximetry 99 96 99 01/17/20 20:08 01/17/20 20:28 01/17/20 20:30 Temperature Pulse Rate 108 H 109 H 110 H Respiratory Rate 45 H 35 H Blood Pressure 122/57 L 120/60 Pulse Oximetry 96 93 93 01/17/20 21:00 01/17/20 21:05 01/17/20 21:30 Temperature 101.3 F H Pulse Rate 103 H 99 H Respiratory Rate 9 L 17 Blood Pressure 109/58 L 111/63 Pulse Oximetry 92 96 01/17/20 22:00 01/17/20 22:30 Temperature 99.3 F Pulse Rate 100 H 87 Respiratory Rate 29 H 10 L Blood Pressure 111/69 101/58 L Pulse Oximetry 97 93 Medical Decision Making Medical Records Medical records reviewed: Yes I reviewed the patient's medical records. Lab Data Lab results reviewed: Yes I reviewed the patient's lab results. Result diagrams: 01/17/20 19:06 01/17/20 19:06 Labs: Lab Results 01/17/20 01/17/20 01/17/20 Range/Units 19:06 19:06 19:06 WBC 5.7 (4.5-11.0) X10^3/uL RBC 4.10 (4.0-5.2) X10^6/uL Hgb 13.6 (12.0-16.0) g/dL Hct 39.3 (36-46) % MCV 95.9 (80-100) fL MCH 33.1 (26-34) PG MCHC 34.5 (30-36) % RDW 13.3 (11.6-14.8) % Plt Count 163 (150-400) X10^3/uL Neut % (Auto) 82.8 H (50-75) % Lymph % (Auto) 12.5 L (25-40) % [place] % (Auto) 4.4 (3-14) % Eos % (Auto) 0.1 L (2-4) % Baso % (Auto) 0.2 (0-2) % Neut # (Auto) 4800 (1964-8602) /uL Lymph # (Auto) 700 L (1162-7074) /uL [place] # (Auto) 300 (0-900) /uL Eos # (Auto) 0 (0-450) /uL Baso # (Auto) 0 (0-100) /uL Sodium 138 (137-145) mmol/L Potassium 3.7 (3.4-5.1) mmol/L Chloride 105 (98-107) mmol/L Carbon Dioxide 23 (22-32) mmol/L BUN 14 (7-17) mg/dL Creatinine 0.83 (0.52-1.04) mg/dL Estimated GFR > 60.0 (>60) mL/min BUN/Creatinine Ratio 16.9 (6-22) Glucose 146 H (70-100) mg/dL Lactate (0.7-2.1) mmol/L Calcium 9.4 (8.4-10.2) mg/dL Magnesium 1.6 (1.6-2.3) mg/dL Total Bilirubin 1.2 (0.2-1.3) mg/dL AST 26 (14-36) IU/L ALT 24 (<35) IU/L Alkaline Phosphatase 106 (38-126) U/L Total Protein 7.2 (6.3-8.2) g/dL Albumin 4.1 (3.5-5.0) g/dL Globulin 3.1 (1.7-4.1) g/dL Albumin/Globulin Ratio 1.3 (1.0-2.8) Procalcitonin 0.69 H (<0.5) ng/mL Urine Color Urine Appearance Urine pH (4.5-8.0) Ur Specific [place] (1.000-1.035) Urine Protein (Negative) Urine Glucose (UA) (Negative) g/dL Urine Ketones (NEGATIVE) Urine Occult Blood (Negative) Urine Nitrate (Negative) Urine Bilirubin (NEGATIVE) Urine Urobilinogen (0.2) E.U./dL Ur Leukocyte Esterase (NEGATIVE) Urine RBC (0-5/HPF) Urine WBC (0-5/HPF) Ur Squamous Epith Cells (0-5/HPF) Urine Bacteria (None) Ur Culture Indicated? COVID-19 PCR (Negative) 01/17/20 01/17/20 01/17/20 Range/Units 19:06 19:50 20:01 WBC (4.5-11.0) X10^3/uL RBC (4.0-5.2) X10^6/uL Hgb (12.0-16.0) g/dL Hct (36-46) % MCV (80-100) fL MCH (26-34) PG MCHC (30-36) % RDW (11.6-14.8) % Plt Count (150-400) X10^3/uL Neut % (Auto) (50-75) % Lymph % (Auto) (25-40) % [place] % (Auto) (3-14) % Eos % (Auto) (2-4) % Baso % (Auto) (0-2) % Neut # (Auto) (2255-7399) /uL Lymph # (Auto) (4196-8163) /uL [place] # (Auto) (0-900) /uL Eos # (Auto) (0-450) /uL Baso # (Auto) (0-100) /uL Sodium (137-145) mmol/L Potassium (3.4-5.1) mmol/L Chloride (98-107) mmol/L Carbon Dioxide (22-32) mmol/L BUN (7-17) mg/dL Creatinine (0.52-1.04) mg/dL Estimated GFR (>60) mL/min BUN/Creatinine Ratio (6-22) Glucose (70-100) mg/dL Lactate 1.6 (0.7-2.1) mmol/L Calcium (8.4-10.2) mg/dL Magnesium (1.6-2.3) mg/dL Total Bilirubin (0.2-1.3) mg/dL AST (14-36) IU/L ALT (<35) IU/L Alkaline Phosphatase (38-126) U/L Total Protein (6.3-8.2) g/dL Albumin (3.5-5.0) g/dL Globulin (1.7-4.1) g/dL Albumin/Globulin Ratio (1.0-2.8) Procalcitonin (<0.5) ng/mL Urine Color Yellow Urine Appearance Sl cloudy Urine pH 8.0 (4.5-8.0) Ur Specific [place] 1.010 (1.000-1.035) Urine Protein Trace H (Negative) Urine Glucose (UA) Negative (Negative) g/dL Urine Ketones Negative (NEGATIVE) Urine Occult Blood 2+ H (Negative) Urine Nitrate Negative (Negative) Urine Bilirubin Negative (NEGATIVE) Urine Urobilinogen 0.2 (0.2) E.U./dL Ur Leukocyte Esterase 1+ H (NEGATIVE) Urine RBC 1-5/hpf (0-5/HPF) Urine WBC 30-100/hpf H (0-5/HPF) Ur Squamous Epith Cells 0-1 /hpf (0-5/HPF) Urine Bacteria Moderate (10-30) H (None) Ur Culture Indicated? Specimen cultured COVID-19 PCR Negative (Negative) MDM Narrative Medical decision making narrative: 54-year-old woman presents with flank pain fever chills and rigors. No evidence of sepsis, urine clearly looks infected. She is feeling significantly better after L of fluid, 2 g of ceftriaxone and Toradol. She is able to eat and drink is cognitively appropriate and is safe for home discharge. She was seen earlier today at urgent care and given a course of ciprofloxacin, will have her complete this. Discharge Plan Departure Patient Disposition: Home Clinical Impression: Pyelonephritis Discharge Date/Time: 01/17/20 23:05 Instructions: DI for Kidney Infection Activity Restrictions/Additional Instructions: Thank you for coming in today Your lab work is reassuring, there is no evidence of sepsis and your urine does in fact look like it is infected. You received a L of fluid, nausea medicine and 2 g of ceftriaxone to begin treating the infection. Please begin the ciprofloxacin that you picked up earlier this afternoon, tomorrow morning. A prescription for prochlorperazine/Compazine has been electronically transmitted to [facility] in [employer] for you to picker packer tomorrow. Using 400 mg of ibuprofen (2 [id number]-svc-[id number] pills) and 1 Tylenol every 6 hours can be very helpful in controlling pain as well as fever. If you find your having worsening symptoms, nausea so severe your unable to take the antibiotics or keep fluids in or your developing new or changing symptoms, you do need to be re-evaluated. I hope you heal quickly. Prescriptions: New prochlorperazine maleate 10 mg tablet 10 mg PO Q8H PRN (Reason: nausea and vomiting) Qty: 10 RF: 0 No Action clonazepam 1 MG tablet 1 mg PO BEDTIME Qty: 0 RF: 0 acetaminophen 325 mg Tablet 650 mg PO Q6HR PRN (Reason: As Needed For Fever/Mild Pain) Qty: 30 RF: 0 hydrocodone-acetaminophen 5-325 mg tablet 1 tab PO Q8H PRN (Reason: pain) Qty: 10 RF: 0 ondansetron HCl 4 mg tablet 4 mg PO Q6H PRN (Reason: nausea and vomiting) Qty: 10 RF: 0 Referrals: Kamila Fitzgerald DO [Primary Care Provider] -
[2020-01-17 19:59] LABS: Add Manual Diff / Slide Review NO; Basophils Absolute Auto 0 /uL (0-100); Basophils Percent Auto 0.2 % (0-2); Eosinophils Absolute Auto 0 /uL (0-450); Eosinophils Percent Auto 0.1 % (2-4); Hematocrit 39.3 % (36-46); Hemoglobin 13.6 g/dL (12.0-16.0); Lymphocytes Absolute Auto 700 /uL (1100-4500); Lymphocytes Percent Auto 12.5 % (25-40); Mean Corpuscular HGB Conc 34.5 % (30-36); Mean Corpuscular Hemoglobin 33.1 PG (26-34); Mean Corpuscular Volume 95.9 fL (80-100); Monocytes Absolute Auto 300 /uL (0-900); Monocytes Percent Auto 4.4 % (3-14); Neutrophils Absolute Auto 4800 /uL (1500-7000); Neutrophils Percent Auto 82.8 % (50-75); Platelet Count 163 X10^3/uL (150-400); Red Cell Distribution Width 13.3 % (11.6-14.8); White Blood Cell Count 5.7 X10^3/uL (4.5-11.0)
[2020-01-17] MEDS: PROCHLORPERAZINE 10 MG/2 ML VIAL IV (20:04)
[2020-01-17] MEDS: KETOROLAC 60 MG/2 ML VIAL 15 MG IV (20:04)
[2020-01-17] MEDS: SODIUM CHLORIDE 0.9% 1,000 ML 1000 ML IV (20:04)
[2020-01-17 20:07] LABS: Alanine Aminotransferase 24 IU/L (<35); Albumin 4.1 g/dL (3.5-5.0); Albumin Globulin Ratio 1.3 (1.0-2.8); Alkaline Phosphatase 106 U/L (38-126); Aspartate Aminotransferase 26 IU/L (14-36); BUN Creatinine Ratio 16.9 (6-22); Bilirubin Total 1.2 mg/dL (0.2-1.3); Blood Urea Nitrogen 14 mg/dL (7-17); Calcium 9.4 mg/dL (8.4-10.2); Carbon Dioxide 23 mmol/L (22-32); Chloride 105 mmol/L (98-107); Estimated Glomerular Filt Rate > 60.0 mL/min (>60); Globulin 3.1 g/dL (1.7-4.1); Glucose 146 mg/dL (70-100); HEMOLYSIS < 15 (0-50); Lactate (Lactic Acid) 1.6 mmol/L (0.7-2.1); Magnesium 1.6 mg/dL (1.6-2.3); Potassium 3.7 mmol/L (3.4-5.1); Sodium 138 mmol/L (137-145); Total Protein 7.2 g/dL (6.3-8.2)
[2020-01-17 20:23] LABS: Appearance Urine UA SL CLOUDY; Bilirubin Urine UA NEGATIVE (NEGATIVE); Color Urine UA YELLOW; Glucose Urine UA NEGATIVE (Negative); Ketones Urine UA NEGATIVE (NEGATIVE); Leukocyte Esterase Urine UA 1+ (NEGATIVE); Nitrite Urine UA NEGATIVE (Negative); Occult Blood Urine UA 2+ (Negative); Protein Urine UA TRACE (Negative); Urobilinogen Urine UA 0.2 E.U./dL (0.2)
[2020-01-17] MEDS: CEFTRIAXONE 2 GM/50 ML FROZ.PIGGY IV (20:25)
[2020-01-17 20:34] LABS: Bacteria Urine Moderate (10-30); Culture Indicated Urine Specimen Cultured; RBC Urine 1-5/HPF (0-5/HPF); Squamous Epithelial Cell Urine 0-1 /HPF (0-5/HPF); WBC Urine 30-100/HPF (0-5/HPF)
[2020-01-17 21:17] LABS: Procalcitonin 0.69 ng/mL (<0.5)
[2020-01-17 22:31] LABS: COVID19 -Nasal RAPID Negative (Negative)
== END 2020-01-17 23:05 | disposition home or self-care (01) ==
PROVIDERS: Emergency Provider Emergency Medicine; PCP Family Medicine
DX: N12 Tubulo-interstitial nephritis, not specified as acute or chronic (principal); R42 Dizziness and giddiness; M54.5 Low back pain; R30.0 Dysuria; R11.10 Vomiting, unspecified; Z11.59 Encounter for screening for other viral diseases
CPT/HCPCS: 36415; 80053; 81001; 83605; 83735; 84145; 85025; 87040; 87086; 87635; 96365; 96375; 99284; J0696; J0780; J1885

== ENCOUNTER → 2020-09-29 14:52 | Outpatient (CLI) | payer OTHER, SELFPAY ==
[2019-09-21 10:20] VITALS: PULSE 116; RESP 16; O2SAT 93
[2019-09-21 14:54] VITALS: BMI 27.8
--- NOTE | 2020-09-29 14:55 | DI.RAD.S_ITS ---
PROCEDURE: XR HAND RT MIN 3V INDICATIONS: r hand pain TECHNIQUE: 3 views of the hand(s) acquired. COMPARISON: None. FINDINGS: Please note that the history says right and the films cell a left period Bones: There is an osteochondroma off the distal shaft of the proximal phalanx of the 3rd finger. No fractures or dislocations. Carpal bones are normally aligned. No suspicious bony lesions. Soft tissues: No suspicious soft tissue calcifications. IMPRESSION: 1. Please note that the history says right in the films say left. 2. No evidence of acute bony abnormality of the hand. 3. Osteochondroma of the distal shaft of the proximal phalanx of the 3rd digit. If this is the area of patient pain symptomatology, would recommend MRI of the hand with without contrast for further evaluation. In the absence of pain symptomatology, this is typically an incidental benign finding. Dictated by: Gigi Wolfe M.D. on 09/29/2020 at 15:12 Approved by: Gigi Wolfe M.D. on 09/29/2020 at 15:31
--- NOTE | 2020-09-29 14:55 | DI.RAD.S_ITS ---
PROCEDURE: XR WRIST RT MIN 3V INDICATIONS: r wrist pain TECHNIQUE: 4 views of the wrist were acquired. COMPARISON: None. FINDINGS: Bones: No fractures or dislocations. No suspicious bony lesions. Osteoarthritic changes are noted at scaphoid trapezial joint and 1st CMC joint. Scaphoid view: Scaphoid is grossly intact. No evidence of avascular necrosis. Soft tissues: No suspicious soft tissue calcifications. IMPRESSION: No gross acute wrist fracture or dislocation. 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 Dictated by: Ryan Henriquez M.D. on 09/29/2020 at 15:10 Approved by: Ryan Henriquez M.D. on 09/29/2020 at 15:12
== END ==
PROVIDERS: PCP Family Medicine; Referring Provider Physician Assistant; Visit Provider Physician Assistant
DX: M79.641 Pain in right hand (principal); M25.531 Pain in right wrist; M19.031 Primary osteoarthritis, right wrist; D16.11 Benign neoplasm of short bones of right upper limb
CPT/HCPCS: 73110; 73130

== ENCOUNTER → 2021-07-25 17:16 | Outpatient (CLI) | payer OTHER, SELFPAY ==
[2019-09-21 10:20] VITALS: PULSE 116; RESP 16; O2SAT 93
[2019-09-21 14:54] VITALS: BMI 27.8
--- NOTE | 2021-07-25 | DI.MRI.S_ITS ---
PROCEDURE: MR CERVICAL SPINE WO CON INDICATIONS: Radiculopathy, cervical region TECHNIQUE: Noncontrast sagittal T1 spin echo and T2 fast spin echo, sagittal STIR, foraminal oblique sagittal T2 fast spin echo, and axial gradient echo or T2 fast spin echo through the cervical spine. COMPARISON: [facility], , C-SPINE WITHOUT CONTRAST, 01/07/2017, 19:33. FINDINGS: Image quality: Excellent. Alignment and Curvature: There is loss of normal cervical lordosis. There is mild, grade 1 retrolisthesis of C4 on C5. Bone Marrow: Marrow demonstrates normal overall signal. There is mild reactive signal within the endplates adjacent to the C3-C4, C4-C5, C5-C6, C6-C7, and C7-T1 intervertebral discs. Spinal Cord: Visualized spinal cord has normal size and signal. No cerebellar tonsillar herniation. Paraspinous Soft Tissues: No paravertebral masses. Prevertebral soft tissues are normal in thickness. C2-C3: Mild disc desiccation. No significant canal stenosis. Mild left greater than right facet hypertrophy. Mild left foraminal stenosis. No right foraminal stenosis. No significant change. C3-C4: Mild disc desiccation and diffuse disc bulge. Mild facet and uncovertebral hypertrophy bilaterally. Mild canal stenosis. Mild bilateral foraminal stenosis. No significant change. C4-C5: Mild disc desiccation and diffuse disc bulge with superimposed small central protrusion. Mild facet and uncovertebral hypertrophy bilaterally. Moderate to severe canal stenosis with mild cord flattening. Moderate right and mild left foraminal stenosis. No significant change. C5-C6: Mild disc height loss and desiccation. Mild diffuse disc bulge with superimposed central protrusion. Mild facet and uncovertebral hypertrophy bilaterally. Severe canal stenosis. Mild cord flattening. Moderate bilateral foraminal stenosis. No significant change. C6-C7: Mild disc height loss. Moderate disc desiccation. Mild diffuse disc bulge. Mild facet and uncovertebral hypertrophy bilaterally. Moderate to severe canal stenosis. Minimal cord flattening. Mild left greater than right foraminal stenosis. No significant change. C7-T1: Mild disc desiccation and diffuse disc bulge. No significant foraminal stenosis. Mild canal stenosis. No significant change. IMPRESSION: 1. Multilevel degenerative disc and facet disease, as well as uncovertebral hypertrophy. 2. Multilevel canal stenoses, worst at C4-C5, C5-C6, and C6-C7, where there is mild cord flattening. 3. Multilevel foraminal stenoses, worst at C4-C5 and C5-C6 where there are moderate foraminal stenoses. Dictated by: Jerome Hodgson M.D. on 07/26/2021 at 8:41 Approved by: Jerome Hodgson M.D. on 07/26/2021 at 8:51
== END ==
PROVIDERS: PCP Family Medicine; Referring Provider Anesthesiology Pain Medicine; Visit Provider Anesthesiology Pain Medicine
DX: M50.11 Cervical disc disorder with radiculopathy, high cervical region (principal); M48.02 Spinal stenosis, cervical region
CPT/HCPCS: 72141

== ENCOUNTER → 2021-11-24 09:56 | Outpatient (CLI) | payer OTHER, SELFPAY ==
[2019-09-21 10:20] VITALS: PULSE 116; RESP 16; O2SAT 93
[2019-09-21 14:54] VITALS: BMI 27.8
== END ==
PROVIDERS: PCP Family Medicine; Referring Provider Family Medicine; Visit Provider Nurse Practitioner Family
DX: S81.812A Laceration without foreign body, left lower leg, initial encounter (principal); L08.9 Local infection of the skin and subcutaneous tissue, unspecified; W22.09XA Striking against other stationary object, initial encounter; I10 Essential (primary) hypertension; F41.9 Anxiety disorder, unspecified
CPT/HCPCS: 11042; 87070; 87075; 87205; 99203; 99213

== ENCOUNTER → 2021-12-01 08:16 | Outpatient (CLI) | payer OTHER, SELFPAY ==
[2019-09-21 10:20] VITALS: PULSE 116; RESP 16; O2SAT 93
[2019-09-21 14:54] VITALS: BMI 27.8
[2021-12-01 09:14] LABS: Cholesterol 249 mg/dL (140-199); HDL Cholesterol 72 mg/dL (40-60); LDL Cholesterol Calculated 147 mg/dL (<100); Triglycerides 149 mg/dL (35-150)
[2021-12-01 13:35] LABS: Alanine Aminotransferase 83 IU/L (<35); Albumin 4.4 g/dL (3.5-5.0); Albumin Globulin Ratio 1.5 (1.0-2.8); Alkaline Phosphatase 90 U/L (38-126); Aspartate Aminotransferase 66 IU/L (14-36); BUN Creatinine Ratio 15.7 (6-22); Bilirubin Total 0.6 mg/dL (0.2-1.3); Blood Urea Nitrogen 16 mg/dL (7-17); Calcium 9.3 mg/dL (8.4-10.2); Carbon Dioxide 27 mmol/L (22-32); Chloride 108 mmol/L (98-107); Estimated Glomerular Filt Rate > 60 mL/min (>60); Glucose 97 mg/dL (70-100); HEMOLYSIS < 15 (0-50); Potassium 4.3 mmol/L (3.4-5.1); Sodium 142 mmol/L (137-145); Total Protein 7.4 g/dL (6.3-8.2)
== END ==
PROVIDERS: PCP Family Medicine; Referring Provider Family Medicine; Visit Provider Family Medicine
DX: Z01.419 Encounter for gynecological examination (general) (routine) without abnormal findings (principal)
CPT/HCPCS: 36415; 80053; 80061

== ENCOUNTER → 2021-12-01 10:25 | Outpatient (CLI) | payer OTHER, SELFPAY ==
[2019-09-21 10:20] VITALS: PULSE 116; RESP 16; O2SAT 93
[2019-09-21 14:54] VITALS: BMI 27.8
== END ==
PROVIDERS: PCP Family Medicine; Referring Provider Family Medicine; Visit Provider Nurse Practitioner Family
DX: S81.812A Laceration without foreign body, left lower leg, initial encounter (principal); I10 Essential (primary) hypertension; F41.9 Anxiety disorder, unspecified
CPT/HCPCS: 97597

== ENCOUNTER → 2021-12-15 10:19 | Outpatient (CLI) | payer OTHER, SELFPAY ==
[2019-09-21 10:20] VITALS: PULSE 116; RESP 16; O2SAT 93
[2019-09-21 14:54] VITALS: BMI 27.8
== END ==
PROVIDERS: PCP Family Medicine; Referring Provider Family Medicine; Visit Provider Nurse Practitioner Family
DX: Z09 Encounter for follow-up examination after completed treatment for conditions other than malignant neoplasm (principal); I10 Essential (primary) hypertension; F41.9 Anxiety disorder, unspecified; Z87.828 Personal history of other (healed) physical injury and trauma
CPT/HCPCS: 99213

== ENCOUNTER → 2021-12-18 15:28 | Outpatient (CLI) | payer OTHER, SELFPAY ==
[2019-09-21 10:20] VITALS: PULSE 116; RESP 16; O2SAT 93
[2019-09-21 14:54] VITALS: BMI 27.8
[2021-12-18 16:47] LABS: Appearance Urine UA SL CLOUDY; Bilirubin Urine UA NEGATIVE (NEGATIVE); Color Urine UA YELLOW; Glucose Urine UA NEGATIVE (Negative); Ketones Urine UA NEGATIVE (NEGATIVE); Leukocyte Esterase Urine UA 3+ (NEGATIVE); Nitrite Urine UA NEGATIVE (Negative); Occult Blood Urine UA 3+ (Negative); Protein Urine UA NEGATIVE (Negative); Specific Gravity Urine UA <=1.005 (1.000-1.035); Urobilinogen Urine UA 0.2 E.U./dL (0.2)
[2021-12-18 16:51] LABS: pH Urine UA 6.5 (4.5-8.0)
[2021-12-18 17:00] LABS: Bacteria Urine Occasional (0-1); Culture Indicated Urine Specimen Cultured; RBC Urine 0-1/HPF (0-5/HPF); WBC Urine 30-100/HPF (0-5/HPF)
== END ==
PROVIDERS: PCP Family Medicine; Referring Provider Family Medicine; Visit Provider Family Medicine
DX: R30.0 Dysuria (principal)
CPT/HCPCS: 81003; 81015; 87077; 87086; 87147; 87186

== ENCOUNTER 2022-05-15 13:10 | Emergency (ER) | payer OTHER, MEDICAID, SELFPAY ==
[2019-09-21 10:20] VITALS: PULSE 116; RESP 16; O2SAT 93
[2019-09-21 14:54] VITALS: BMI 27.8
[2022-05-15 13:17] VITALS: BP 184/100; PULSE 97; RESP 18; TEMP 36.1; O2SAT 100; BMI 26.6
--- NOTE | 2022-05-15 13:20 | DI.RAD.S_ITS ---
PROCEDURE: XR TIBIA FUBULA RT 2V INDICATIONS: stepped on pts foot by a horse, TECHNIQUE: 2 views of the tibia and fibula were acquired. COMPARISON: [facility], CR, XR FOOT RT MIN 3V, 05/15/2022, 13:22. FINDINGS: Bones: Lucency noted in the distal fibula which may represent nondisplaced fracture versus artifact. Soft tissues: No suspicious soft tissue calcifications or masses. IMPRESSION: Nondisplaced distal right fibular fracture versus artifact. Recommend dedicated right ankle series for additional evaluation. Dictated by: Kesha Cole MD, PhD on 05/15/2022 at 14:21 Approved by: Kesha Cole MD, PhD on 05/15/2022 at 14:22
--- NOTE | 2022-05-15 13:20 | DI.RAD.S_ITS ---
PROCEDURE: XR FOOT RT MIN 3V INDICATIONS: stepped on pts foot by a horse, TECHNIQUE: 3 views of the foot were acquired. COMPARISON: None. FINDINGS: Bones: No fractures or dislocations. No suspicious bony lesions. First MTP joint arthrodesis. Dorsal calcaneal bone spur. Soft tissues: No tibiotalar joint effusion. Achilles tendon appears normal. IMPRESSION: No fracture. No acute osseous lesion. If symptoms and/or clinical suspicion for pathology persists, further assessment with repeat radiographs (7-10 days) or advanced imaging (e.g. CT, MRI or bone scan) should be considered. Dictated by: Kesha Cole MD, PhD on 05/15/2022 at 14:20 Approved by: Kesha Cole MD, PhD on 05/15/2022 at 14:21
[2022-05-15] MEDS: ACETAMINOPHEN 325 MG TABLET 975 MG PO (14:21)
[2022-05-15] MEDS: IBUPROFEN 400 MG TABLET 800 MG PO (14:22)
--- NOTE | 2022-05-15 15:09 | DI.RAD.S_ITS ---
PROCEDURE: XR ANKLE RT MIN 3V INDICATIONS: trauma TECHNIQUE: 3 views of the ankle were acquired. COMPARISON: [facility], CR, XR TIBIA FIBULA RT 2V, 05/15/2022, 13:22. [facility], CR, XR FOOT RT MIN 3V, 05/15/2022, 13:22. FINDINGS: Bones: No fractures or dislocations. Ankle mortise is normally aligned. No suspicious bony lesions. Soft tissues: No tibiotalar joint effusion. Achilles tendon appears normal. Lateral soft tissue swelling is noted and ligamentous injury cannot be excluded. IMPRESSION: No fracture. No acute osseous lesion. If symptoms and/or clinical suspicion for pathology persists, further assessment with repeat radiographs (7-10 days) or advanced imaging (e.g. CT, MRI or bone scan) should be considered. Dictated by: Kesha Cole MD, PhD on 05/15/2022 at 15:33 Approved by: Kesha Cole MD, PhD on 05/15/2022 at 15:34
--- NOTE | 2022-05-15 15:09 | PC.NURSE ---
1500 recheck, ice given per request, distal cms intact on reassess
--- NOTE | 2022-05-15 17:50 | ED.LOWEXIN ---
HPI - Extremity Injury (Lower) General Chief Complaint: Extremity Injury, Lower Stated Complaint: horse stepped on RT ankle Time Seen by Provider: 05/15/22 17:39 Source: patient Mode of arrival: Wheelchair Related Data Home Medications Medication Instructions Recorded Confirmed clonazepam 1 mg tablet 1 mg PO BEDTIME ##0 08/15/17 03/13/22 Previous Rx's Medication Instructions Recorded prednisone 20 mg tablet 20 mg PO DAILY large local 03/13/22 reaction to beesting #9 tabs Allergies Allergy/AdvReac Type Severity Reaction Status Date / Time sulfamethoxazole AdvReac Mild N/V Verified 05/15/22 13:17 [From Bactrim] trimethoprim [From Bactrim] AdvReac Mild N/V Verified 05/15/22 13:17 Patient History Medical History Benzodiazepine overdose Depression (11/05/13) Diverticulitis Social History household members: family Smoking Status: Never smoker Smoking Status: Never smoker alcohol intake frequency: 0-2 drinks per day Substance Use Type: does not use Exam Initial Vital Signs Initial Vital Signs: Vital Signs Temperature 97.0 F L 05/15/22 13:17 Pulse Rate 97 H 05/15/22 13:17 Respiratory Rate 18 05/15/22 13:17 Blood Pressure 184/100 H 05/15/22 13:17 Pulse Oximetry 100 05/15/22 13:17 Oxygen Delivery Method 05/15/22 13:17 Course Orders Ordered: ED Orders 05/15/22 13:20 XR foot RT min 3V Stat XR tibia fibula RT 2V Stat 05/15/22 15:09 XR ankle RT min 3V Stat Fentanyl (Fentanyl 100 Mcg/2 Ml Inj) 80 mcg 1 mcg/kg (80 mcg) IV Q1H PRN PRN Reason: Pain, Moderate (4-6) Ondansetron HCl (Ondansetron 4 Mg/2 Ml Inj) 4 mg IV Q2HR PRN PRN Reason: Nausea And Vomiting Discontinued Medications Acetaminophen (Acetaminophen 325 Mg Tablet) 975 mg PO NOW ONE Stop: 05/15/22 13:41 Last Admin: 05/15/22 14:21 Dose: 975 mg Documented By: SUZE Ibuprofen (Ibuprofen 400 Mg Tablet) 800 mg PO NOW ONE Stop: 05/15/22 13:41 Last Admin: 05/15/22 14:22 Dose: 800 mg Documented By: SUZE Ketorolac Tromethamine (Ketorolac 30 Mg/Ml Vial) 15 mg IV NOW ONE Stop: 05/15/22 17:45 Vital Signs Vital signs: Vital Signs - 8 hr 05/15/22 13:17 Temperature 97.0 F L Pulse Rate 97 H Respiratory Rate 18 Blood Pressure 184/100 H Pulse Oximetry 100 Oxygen Delivery Method Room Air Discharge Plan Departure Prescriptions: No Action prednisone 20 mg tablet 20 mg PO DAILY Qty: 9 0RF Rx Instructions: Take 3 tablets by mouth once a day x1 day, then take 2 tablets by mouth once a day x2 days, then take 1 tablet by mouth once a day x2 days. clonazepam 1 MG tablet 1 mg PO BEDTIME Qty: 0 Referrals: Kamila Reese DO [Primary Care Provider] -
--- NOTE | 2022-05-15 17:53 | DI.CT.S_ITS ---
PROCEDURE: CT LE RT WO CON INDICATIONS: ankle trauma TECHNIQUE: Noncontrast 1-1.5 mm axial sections acquired from above the tibiotalar joint to the bottom of the calcaneus, with coronal and sagittal reformats. COMPARISON: None. FINDINGS: Image quality: Excellent. Bones: No dislocation. No displaced fractures identified. There is a tiny possible avulsion fragment adjacent to the tip of the lateral malleolus (4/123), and the lateral calcaneus (3/88). There is a small intra-articular bone fragment in the ankle mortise (3/49). The calcaneal plantar enthesopathy. Mild scattered arthrosis. Soft tissues: No suspicious calcifications. IMPRESSION: Suspected avulsion fractures from the tip of the lateral malleolus and lateral calcaneus. There is also a suspected intra-articular bone fragment at the anterior ankle mortise. Correlate for point tenderness. If there is high concern for further derangement, consider MRI evaluation. Dictated by: Jas Cole M.D. on 05/15/2022 at 19:25 Approved by: Jas Cole M.D. on 05/15/2022 at 19:31
[2022-05-15] MEDS: fentaNYL 100 MCG/2 ML INJ 80 MCG IV ×2 (18:04→19:18)
[2022-05-15] MEDS: KETOROLAC 30 MG/ML VIAL 15 MG IV (18:19)
[2022-05-15] MEDS: HYDROMORPHONE 0.5 MG INJ IV ×4 (20:39→21:27)
[2022-05-15] MEDS: HYDROCODONE/ACET 5/325 PREPACK 1 BOTTLE MISC (21:27)
--- NOTE | 2022-05-15 22:23 | PC.NURSE ---
short leg posterior orthoglass splint applied per order, distal cms intact after splint applied
[2022-05-15 22:24] VITALS: BP 163/95; PULSE 81; RESP 18; O2SAT 99
== END 2022-05-15 22:24 | disposition home or self-care (01) ==
PROVIDERS: Emergency Provider Family Medicine Addiction Medicine; Family Provider Family Medicine; PCP Family Medicine
DX: S82.61XA Displaced fracture of lateral malleolus of right fibula, initial encounter for closed fracture (principal); W55.19XA Other contact with horse, initial encounter; R07.89 Other chest pain
CPT/HCPCS: 73590; 73610; 73630; 73700; 96374; 96375; 96376; 99284; J1170; J1885; J3010

== ENCOUNTER 2022-09-03 07:30 | Outpatient (RCR) | payer OTHER, MEDICAID, SELFPAY ==
[2019-09-21 10:20] VITALS: PULSE 116; RESP 16; O2SAT 93
[2019-09-21 14:54] VITALS: BMI 27.8
--- NOTE | 2022-08-16 10:31 | PT.OIE ---
Current Diagnoses Unspecified rotator cuff tear or rupture of right shoulder, not specified as traumatic (08/16/22) Past Medical History (Last Reviewed 03/13/22 @ 15:03 by SUSHIL Blandon) Benzodiazepine overdose Depression (11/05/13) Diverticulitis Visit Care Team Role Provider Type Kamila Reese DO Attending Provider Non-Staff Family Provider Primary Care Provider Referring Provider Specialty: Family Practice Address: [address] [place] [address], [id number] Email: Physical Therapy Initial Evaluation PT-OP-A Visit Information Start: 08/16/22 08:08 Freq: Status: Active Protocol: Document 08/16/22 08:15 TH (Rec: 08/16/22 10:31 [id number]) Out-Patient Physical Therapy Visit Information Visit Information Visit Type Initial Evaluation Visit Start Time 08:15 Visit Stop Time 09:00 Total Visit Minutes 45 Visit Number 1 Number of PAINTER DECORATOR Visits 0 Precautions Precautions Screen for ESTIM PT-OP-B Current Condition Start: 08/16/22 08:08 Freq: Status: Active Protocol: Document 08/16/22 08:15 TH (Rec: 08/16/22 10:31 [id number]) Current Condition History of Current Condition Current Complaints Chronic Right shoulder pain / rotator tears ( full thickness tears/SLAP) History of Current Condition Pt has long hx of chronic right shoulder pain. She has been recently diagnosed with full thickness tears of rotator cuff , bicep tendinitis and SLAP ( mri done at [facility]). Right shoulder pain has worsened over the last 7 months. Pt was sent to PT for strengthening prior to having steroid injection. Prior Treatments and Tests Spinal stenosis C6 - C7/, bulges C6-C7 to the right , Pt states that shortly after J and J COVID injection she started noticing circulation constrictiuon to bilateral index/middle fingers ( numbness, tingling, coldness, palor) Hx of injection to cervical region without resolution. Treatment Goals Patient/Caregiver Goals Pt has been seen for same in the past and is not hopeful it will help but is following MD instruction before injection. Prior Functional Status Baseline Function- ADL's Independent Baseline Function- Mobility Independent Current Functional Impairments (Reported) Functional Limitations- ADL's IND though ADLs requiring reaching up back and up over head with weight are intolerable. PT-OP-F Manual Assessment Start: 08/16/22 08:08 Freq: Status: Active Protocol: Document 08/16/22 08:15 TH (Rec: 08/16/22 10:31 [id number]) Manual Assessments Soft Tissue Assessment Soft Tissue Mobility Assessment Tenderness to palpation: right trap,, lev.scap., RTC mm, bicep tendon, pec Pressing along pec minor increases symptoms down to fingers PT-OP-K Range of Motion Start: 08/16/22 08:08 Freq: Status: Active Protocol: Document 08/16/22 08:15 TH (Rec: 08/16/22 10:31 [id number]) Shoulder Goniometric Range of Motion Shoulder Right Flexion 120 Abduction 130 External Rotation at 0 degrees Abduction 86 Internal Rotation Behind Back (text) Right buttock Comments R hypomobile AC joint RTC pain with end range Increased protraction/ ant. tilt of right scapula mild winging r scap PT-OP-L Special Tests Start: 08/16/22 08:08 Freq: Status: Active Protocol: Document 08/16/22 08:15 TH (Rec: 08/16/22 10:31 [id number]) Special Tests Cervical Spine Special Tests Spurling's Test Test Results positive right / left PT-OP-Q Treatments Start: 08/16/22 08:08 Freq: Status: Active Protocol: Document 08/16/22 08:15 TH (Rec: 08/16/22 10:31 TH [id number]) Therapeutic Exercises Other Exercises HEP Comments See self care HEP for medbridge ( hand out provided) Manual Therapy Treatment Manual Techniques Subscapularis Release right Body Position Supine Comments with passive shoulder abduction Self-Care/Home Management Treatment Education Patient Education Home Exercise Program Other Education Access Code: [email or web address] URL: [email or web address] Date: 08/16/2022 Prepared by: Aziza Barrera Exercises Serratus Activation at Wall - 1 x daily - 7 x weekly - 1 sets - 10 reps - 5 sec hold Isometric Shoulder Flexion at Wall - 1 x daily - 7 x weekly - 1 sets - 10 reps - 5 sec hold Standing Isometric Shoulder Internal Rotation at Doorway - 1 x daily - 7 x weekly - 1 sets - 10 reps - 5 sec hold Standing Bilateral Low Shoulder Row with Anchored Resistance - 1 x daily - 7 x weekly - 3 sets - 10 reps PT-OP-T Assessment and Plan Start: 08/16/22 08:08 Freq: Status: Active Protocol: Document 08/16/22 08:15 TH (Rec: 08/16/22 10:31 TH [id number]) Physical Therapy Assessment Rehab Potential Rehabilitation Potential Good Evaluation Complexity Number of Personal Factors/Comorbidities 0 Number of Body Systems Impaired 1-2 Clinical Presentation at Evaluation Stable Impairments Impairments Activity Tolerance,Functional Activities,Pain,Sensation, Strength Goals Three Impairment Difficult to lift weighted objects ie horse tac equipment . Short Term Goal (STG) Pt will be able to lift 10 lb box and carry 10 feet with right shoulder pain < = 3/10 STG Duration 09/13/22 4 weeks Prison Goal (LTG) Pt will be able to lift 10 lb box and carry 10 feet with right shoulder pain with minimal to no pain. LTG Duration 10/25/22 10 weeks Two Impairment Difficult reaching back Short Term Goal (STG) Pt will be able to reach back to right L5 with pain < = 3/10 . STG Duration 09/13/22 4 weeks Prison Goal (LTG) Pt will be able to reach back to right T8 with minimal to no pain. LTG Duration 10/25/22 10 weeks One Impairment Difficult to reaching into cupboards to put dishes away. Short Term Goal (STG) Pt will be able to reach above 90 degrees with 2lb weight and pain < = 3/10. STG Duration 09/13/22 4 weeks Prison Goal (LTG) Pt will be able to reach above 90 degrees with 5lb weight and minimal to no pain. LTG Duration 10/25/22 10 weeks Assessment Summary Assessment Pt presents with RTC, SLAP and chronic right shoulder impingement. Pt will benefit from further PT to improve right shoulder strength/ stability. Physical Therapy Plan Frequency and Duration Frequency of Treatment 1-2x/wk Duration of treatment (weeks) 10 Plan of Care Start Date 08/16/22 Plan of Care End Date 10/25/22 Therapeutic Interventions Therapeutic Interventions Home Exercise Program,Joint Mobilizations,Manual Therapy, Neuromuscular Re-education, Patient/Caregiver Education, Self-Care/Home Management,Soft Tissue Mobilization,Taping, Therapeutic Activities, Therapeutic Exercises Modalities Cold Pack/Ice Massage,Electric Stimulation,Hot Packs, Traction- Mechanical, Ultrasound Next Visit Focus/Plan Next Note Type Treatment Note Next Visit Plan Manual therapy GHGunner barragan Shld protraction/rotation mobilization subscapularis release Therex wall citcles wall angles pulleys
--- NOTE | 2022-08-16 10:31 | PT.OPPOC ---
Physical, Occupational & Speech Therapy At [facility] Current Diagnoses Unspecified rotator cuff tear or rupture of right shoulder, not specified as traumatic (08/16/22) Visit Care Team Role Provider Type Kamila Reese DO Attending Provider Non-Staff Family Provider Primary Care Provider Referring Provider Specialty: Family Practice Address: [address] [place] [address], [phone] Email: Plan Of Care PT-OP-T Assessment and Plan Start: 08/16/22 08:08 Freq: Status: Active Protocol: Document 08/16/22 08:15 TH (Rec: 08/16/22 10:31 TH [id number]) Physical Therapy Assessment Rehab Potential Rehabilitation Potential Good Evaluation Complexity Number of Personal Factors/Comorbidities 0 Number of Body Systems Impaired 1-2 Clinical Presentation at Evaluation Stable Impairments Impairments Activity Tolerance,Functional Activities,Pain,Sensation, Strength Goals Three Impairment Difficult to lift weighted objects ie horse tac equipment . Short Term Goal (STG) Pt will be able to lift 10 lb box and carry 10 feet with right shoulder pain < = 3/10 STG Duration 09/13/22 4 weeks Correction Goal (LTG) Pt will be able to lift 10 lb box and carry 10 feet with right shoulder pain with minimal to no pain. LTG Duration 10/25/22 10 weeks Two Impairment Difficult reaching back Short Term Goal (STG) Pt will be able to reach back to right L5 with pain < = 3/10 . STG Duration 09/13/22 4 weeks Railroad Track Repair Supervisor Goal (LTG) Pt will be able to reach back to right T8 with minimal to no pain. LTG Duration 10/25/22 10 weeks One Impairment Difficult to reaching into cupboards to put dishes away. Short Term Goal (STG) Pt will be able to reach above 90 degrees with 2lb weight and pain < = 3/10. STG Duration 09/13/22 4 weeks Railroad Track Repair Supervisor Goal (LTG) Pt will be able to reach above 90 degrees with 5lb weight and minimal to no pain. LTG Duration 10/25/22 10 weeks Assessment Summary Assessment Pt presents with RTC, SLAP and chronic right shoulder impingement. Pt will benefit from further PT to improve right shoulder strength/ stability. Physical Therapy Plan Frequency and Duration Frequency of Treatment 1-2x/wk Duration of treatment (weeks) 10 Plan of Care Start Date 08/16/22 Plan of Care End Date 10/25/22 Therapeutic Interventions Therapeutic Interventions Home Exercise Program,Joint Mobilizations,Manual Therapy, Neuromuscular Re-education, Patient/Caregiver Education, Self-Care/Home Management,Soft Tissue Mobilization,Taping, Therapeutic Activities, Therapeutic Exercises Modalities Cold Pack/Ice Massage,Electric Stimulation,Hot Packs, Traction- Mechanical, Ultrasound Next Visit Focus/Plan Next Note Type Treatment Note Next Visit Plan Manual therapy GARRETT Estrada protraction/rotation mobilization subscapularis release Therex wall citcles wall angles pulleys Plan of Care Dates Plan of Care Start Date 08/16/22 Plan of Care End Date 10/25/22 Electronically Signed by: Aziza Barrera, PT 08/16/22 1031 If you are in agreement with this Plan of Care, please return a signed and dated copy. I have reviewed this Plan of Care and certify that the skilled therapy services above are required to meet the patient?s needs. Physician Signature Date Printed Name and Credentials Clinical Instructor Signature Printed Name and Credentials
--- NOTE | 2022-08-23 09:21 | PT.OTN ---
Current Diagnoses Unspecified rotator cuff tear or rupture of right shoulder, not specified as traumatic (08/23/22) Physical Therapy Treatment Note PT-OP-A Visit Information Start: 08/16/22 08:08 Freq: Status: Active Protocol: Document 08/23/22 08:15 TH (Rec: 08/23/22 09:20 TH [id number]) Out-Patient Physical Therapy Visit Information Visit Information Visit Type Treatment Note Visit Note see subjective Visit Start Time 08:15 Visit Stop Time 09:15 Total Visit Minutes 60 Visit Number 2 Number of CRISIS MANAGER Visits 0 PT-OP-B Current Condition Start: 08/16/22 08:08 Freq: Status: Active Protocol: Document 08/16/22 08:15 TH (Rec: 08/16/22 10:31 TH [id number]) Current Condition History of Current Condition Current Complaints Chronic Right shoulder pain / rotator tears ( full thickness tears/SLAP) History of Current Condition Pt has long hx of chronic right shoulder pain. She has been recently diagnosed with full thickness tears of rotator cuff , bicep tendinitis and SLAP ( mri done at [facility]). Right shoulder pain has worsened over the last 7 months. Pt was sent to PT for strengthening prior to having steroid injection. Prior Treatments and Tests Spinal stenosis C6 - C7/, bulges C6-C7 to the right , Pt states that shortly after J and J COVID injection she started noticing circulation constrictiuon to bilateral index/middle fingers ( numbness, tingling, coldness, palor) Hx of injection to cervical region without resolution. Treatment Goals Patient/Caregiver Goals Pt has been seen for same in the past and is not hopeful it will help but is following MD instruction before injection. Prior Functional Status Baseline Function- ADL's Independent Baseline Function- Mobility Independent Current Functional Impairments (Reported) Functional Limitations- ADL's IND though ADLs requiring reaching up back and up over head with weight are intolerable. PT-OP-C Subjective Start: 08/16/22 08:08 Freq: Status: Active Protocol: Document 08/23/22 08:15 TH (Rec: 08/23/22 09:20 TH [id number]) OP-PT Subjective Patient Comments Patient Comments Pt states her shoulder was pretty sore after releasing subscapularis last visit. Patient Reported Progress Same PT-OP-F Manual Assessment Start: 08/16/22 08:08 Freq: Status: Active Protocol: Document 08/16/22 08:15 TH (Rec: 08/16/22 10:31 TH [id number]) Manual Assessments Soft Tissue Assessment Soft Tissue Mobility Assessment Tenderness to palpation: right trap,, lev.scap., RTC mm, bicep tendon, pec Pressing along pec minor increases symptoms down to fingers PT-OP-K Range of Motion Start: 08/16/22 08:08 Freq: Status: Active Protocol: Document 08/23/22 08:15 TH (Rec: 08/23/22 09:20 TH [id number]) Shoulder Goniometric Range of Motion Shoulder Right Flexion 128 Abduction 130 External Rotation at 0 degrees Abduction 86 Internal Rotation Behind Back (text) Right buttock Comments R hypomobile AC joint RTC pain with end range Increased protraction/ ant. tilt of right scapula mild winging r scap PT-OP-L Special Tests Start: 08/16/22 08:08 Freq: Status: Active Protocol: Document 08/16/22 08:15 TH (Rec: 08/16/22 10:31 TH [id number]) Special Tests Cervical Spine Special Tests Spurling's Test Test Results positive right / left PT-OP-Q Treatments Start: 08/16/22 08:08 Freq: Status: Active Protocol: Document 08/23/22 08:15 TH (Rec: 08/23/22 09:20 TH [id number]) Manual Therapy Treatment Manual Techniques PROM Comments right shld in all planes 2nd/3rd rib mobilization Comments Done to release pec minor GHJ glide Comments Ant/ post. GHJ glides grade II Subscapularis Release right Comments Hold for now due to pain flare PT-OP-R Modalities Start: 08/16/22 08:08 Freq: Status: Active Protocol: Document 08/23/22 08:15 TH (Rec: 08/23/22 09:20 TH [id number]) Electric Stimulation Electric Stimulation Right shoulder Comments 15 min PT-OP-T Assessment and Plan Start: 08/16/22 08:08 Freq: Status: Active Protocol: Document 08/23/22 08:15 TH (Rec: 08/23/22 09:20 TH [id number]) Physical Therapy Assessment Goals Three Impairment Difficult to lift weighted objects ie horse tac equipment . Short Term Goal (STG) Pt will be able to lift 10 lb box and carry 10 feet with right shoulder pain < = 3/10 STG Duration 09/13/22 4 weeks Director Community Organization Goal (LTG) Pt will be able to lift 10 lb box and carry 10 feet with right shoulder pain with minimal to no pain. LTG Duration 10/25/22 10 weeks Assessment Summary Assessment Noted right shld IR improved with manual therapy today. IR Pre rx : right buttock , IR post rx: right belt line. Subscapularis likely has full thickness tear. So far subscap. does not respond well to trigger point release. Physical Therapy Plan Frequency and Duration Frequency of Treatment 1-2x/wk Duration of treatment (weeks) 10 Plan of Care Start Date 08/16/22 Plan of Care End Date 10/25/22 Therapeutic Interventions Therapeutic Interventions Home Exercise Program,Joint Mobilizations,Manual Therapy, Neuromuscular Re-education, Patient/Caregiver Education, Self-Care/Home Management,Soft Tissue Mobilization,Taping, Therapeutic Activities, Therapeutic Exercises Modalities Cold Pack/Ice Massage,Electric Stimulation,Hot Packs, Traction- Mechanical, Ultrasound Next Visit Focus/Plan Next Visit Plan GARRETT barragan ( ant/inf) strengthening supporting muscles to tolerance
--- NOTE | 2022-08-27 08:17 | PT.OTN ---
Current Diagnoses Unspecified rotator cuff tear or rupture of right shoulder, not specified as traumatic (08/27/22) Physical Therapy Treatment Note PT-OP-A Visit Information Start: 08/16/22 08:08 Freq: Status: Active Protocol: Document 08/27/22 07:33 SP (Rec: 08/27/22 08:18 SP [id number]) Out-Patient Physical Therapy Visit Information Visit Information Visit Type Treatment Note Visit Start Time 07:33 Visit Stop Time 08:17 Total Visit Minutes 45 Visit Number 3 Number of PREMIUM REPRESENTATIVE Visits 1 PT-OP-B Current Condition Start: 08/16/22 08:08 Freq: Status: Active Protocol: Document 08/16/22 08:15 TH (Rec: 08/16/22 10:31 TH [id number]) Current Condition History of Current Condition Current Complaints Chronic Right shoulder pain / rotator tears ( full thickness tears/SLAP) History of Current Condition Pt has long hx of chronic right shoulder pain. She has been recently diagnosed with full thickness tears of rotator cuff , bicep tendinitis and SLAP ( mri done at [facility]). Right shoulder pain has worsened over the last 7 months. Pt was sent to PT for strengthening prior to having steroid injection. Prior Treatments and Tests Spinal stenosis C6 - C7/, bulges C6-C7 to the right , Pt states that shortly after J and J COVID injection she started noticing circulation constrictiuon to bilateral index/middle fingers ( numbness, tingling, coldness, palor) Hx of injection to cervical region without resolution. Treatment Goals Patient/Caregiver Goals Pt has been seen for same in the past and is not hopeful it will help but is following MD instruction before injection. Prior Functional Status Baseline Function- ADL's Independent Baseline Function- Mobility Independent Current Functional Impairments (Reported) Functional Limitations- ADL's IND though ADLs requiring reaching up back and up over head with weight are intolerable. PT-OP-C Subjective Start: 08/16/22 08:08 Freq: Status: Active Protocol: Document 08/27/22 07:33 SP (Rec: 08/27/22 08:18 SP [id number]) OP-PT Subjective Patient Comments Patient Comments Pt reports had a deep tissure massage over the weekend and little sore. Her regular MT for years. Can R shld sore and feels back. Taking Meloxacan for antinflammatory. Hard to push seat belt to lock, push self to sit up weakness and pain. PT-OP-F Manual Assessment Start: 08/16/22 08:08 Freq: Status: Active Protocol: Document 08/16/22 08:15 TH (Rec: 08/16/22 10:31 TH [id number]) Manual Assessments Soft Tissue Assessment Soft Tissue Mobility Assessment Tenderness to palpation: right trap,, lev.scap., RTC mm, bicep tendon, pec Pressing along pec minor increases symptoms down to fingers PT-OP-K Range of Motion Start: 08/16/22 08:08 Freq: Status: Active Protocol: Document 08/23/22 08:15 TH (Rec: 08/23/22 09:20 TH [id number]) Shoulder Goniometric Range of Motion Shoulder Right Flexion 128 Abduction 130 External Rotation at 0 degrees Abduction 86 Internal Rotation Behind Back (text) Right buttock Comments R hypomobile AC joint RTC pain with end range Increased protraction/ ant. tilt of right scapula mild winging r scap PT-OP-L Special Tests Start: 08/16/22 08:08 Freq: Status: Active Protocol: Document 08/16/22 08:15 TH (Rec: 08/16/22 10:31 TH [id number]) Special Tests Cervical Spine Special Tests Spurling's Test Test Results positive right / left PT-OP-Q Treatments Start: 08/16/22 08:08 Freq: Status: Active Protocol: Document 08/27/22 07:33 SP (Rec: 08/27/22 08:18 SP [id number]) Therapeutic Exercises Standing Exercises resisted shld est Standing Exercise Name added to HEP Side right Resistance Tb #2 Reps/Minutes 2x10 Comments cued scap set, slow con/ecc- painfree IR/ ER Standing Exercise Name HEP reveiwed Side right Resistance TB #2 Reps/Minutes 2x10 each directions Comments cued scap set, slow con/ecc- painfree rows Standing Exercise Name HEP review Side right Resistance TB #1>#2 Reps/Minutes 2x10 Comments cued scap set, slow con/ecc- painfree Other Exercises self STMs Other Exercise Name reviewed ball wall: interscap RHomboid/LS, mid infraspinatus Side right Comments good feedback response HEP Other Exercise Name HEP: rows TB #1, Comments See self care HEP for medbridge ( hand out provided) Manual Therapy Treatment Soft Tissue Mobilization Neck Body Location UT, LS, Mobilization Type Strumming,Sustained Pressure Intensity/Depth Moderate Body Position Hooklying Comments manual R shld Body Location Subscap (supine), infraspinatus, Rhomboid Mobilization Type Strumming,Sustained Pressure Intensity/Depth Moderate Body Position Sidelying Comments manual and ed w/ performance use of ball on wall self application. Manual Techniques GHJ glide Type R shld Comments Ant/ post. GHJ glides grade II Subscapularis Release right Type R shld Comments gentle/ light pressure, fair tolerance PT-OP-R Modalities Start: 08/16/22 08:08 Freq: Status: Active Protocol: Document 08/23/22 08:15 TH (Rec: 08/23/22 09:20 TH [id number]) Electric Stimulation Electric Stimulation Right shoulder Comments 15 min PT-OP-T Assessment and Plan Start: 08/16/22 08:08 Freq: Status: Active Protocol: Document 08/27/22 07:33 SP (Rec: 08/27/22 08:18 SP [id number]) Physical Therapy Assessment Goals Three Impairment Difficult to lift weighted objects ie horse tac equipment . Short Term Goal (STG) Pt will be able to lift 10 lb box and carry 10 feet with right shoulder pain < = 3/10 STG Duration 09/13/22 4 weeks [facility] Goal (LTG) Pt will be able to lift 10 lb box and carry 10 feet with right shoulder pain with minimal to no pain. LTG Duration 10/25/22 10 weeks Two Impairment Difficult reaching back Short Term Goal (STG) Pt will be able to reach back to right L5 with pain < = 3/10 . STG Duration 09/13/22 4 weeks Mechanical Detailer Goal (LTG) Pt will be able to reach back to right T8 with minimal to no pain. LTG Duration 10/25/22 10 weeks One Impairment Difficult to reaching into cupboards to put dishes away. Short Term Goal (STG) Pt will be able to reach above 90 degrees with 2lb weight and pain < = 3/10. STG Duration 09/13/22 4 weeks Mechanical Detailer Goal (LTG) Pt will be able to reach above 90 degrees with 5lb weight and minimal to no pain. LTG Duration 10/25/22 10 weeks Assessment Summary Assessment Pt responded well to manual and understanding how can apply using ball on wall. Pt able to increased resistance to rows and add resisted shld extension to HEP. Cues as needed for humeral inferior glide/no UT recruitment during TB ex. Physical Therapy Plan Frequency and Duration Frequency of Treatment 1-2x/wk Duration of treatment (weeks) 10 Plan of Care Start Date 08/16/22 Plan of Care End Date 10/25/22 Therapeutic Interventions Therapeutic Interventions Home Exercise Program,Joint Mobilizations,Manual Therapy, Neuromuscular Re-education, Patient/Caregiver Education, Self-Care/Home Management,Soft Tissue Mobilization,Taping, Therapeutic Activities, Therapeutic Exercises Modalities Cold Pack/Ice Massage,Electric Stimulation,Hot Packs, Traction- Mechanical, Ultrasound Next Visit Focus/Plan Next Note Type Treatment Note Next Visit Plan REcheck response to TB HEP. Next tx trial prone Ts, Is, Ys . Side open book. POC: GARRETT gliedwar ( ant/inf) strengthening supporting muscles to tolerance
--- NOTE | 2022-08-30 08:58 | PT.OTN ---
Current Diagnoses Unspecified rotator cuff tear or rupture of right shoulder, not specified as traumatic (08/30/22) Physical Therapy Treatment Note PT-OP-A Visit Information Start: 08/16/22 08:08 Freq: Status: Active Protocol: Document 08/30/22 08:17 TH (Rec: 08/30/22 08:58 TH [id number]) Out-Patient Physical Therapy Visit Information Visit Information Visit Type Treatment Note Visit Start Time 08:15 Visit Stop Time 08:45 Total Visit Minutes 45 Visit Number 4 Number of ARCHIVES TECHNICIAN Visits 0 PT-OP-B Current Condition Start: 08/16/22 08:08 Freq: Status: Active Protocol: Document 08/16/22 08:15 TH (Rec: 08/16/22 10:31 TH [id number]) Current Condition History of Current Condition Current Complaints Chronic Right shoulder pain / rotator tears ( full thickness tears/SLAP) History of Current Condition Pt has long hx of chronic right shoulder pain. She has been recently diagnosed with full thickness tears of rotator cuff , bicep tendinitis and SLAP ( mri done at [facility]). Right shoulder pain has worsened over the last 7 months. Pt was sent to PT for strengthening prior to having steroid injection. Prior Treatments and Tests Spinal stenosis C6 - C7/, bulges C6-C7 to the right , Pt states that shortly after J and J COVID injection she started noticing circulation constrictiuon to bilateral index/middle fingers ( numbness, tingling, coldness, palor) Hx of injection to cervical region without resolution. Treatment Goals Patient/Caregiver Goals Pt has been seen for same in the past and is not hopeful it will help but is following MD instruction before injection. Prior Functional Status Baseline Function- ADL's Independent Baseline Function- Mobility Independent Current Functional Impairments (Reported) Functional Limitations- ADL's IND though ADLs requiring reaching up back and up over head with weight are intolerable. PT-OP-C Subjective Start: 08/16/22 08:08 Freq: Status: Active Protocol: Document 08/30/22 08:17 TH (Rec: 08/30/22 08:58 TH [id number]) OP-PT Subjective Patient Comments Patient Comments Pt states that symptoms are still the same and actually seem to worsen with PT activities. Patient Reported Progress Same PT-OP-F Manual Assessment Start: 08/16/22 08:08 Freq: Status: Active Protocol: Document 08/16/22 08:15 TH (Rec: 08/16/22 10:31 TH [id number]) Manual Assessments Soft Tissue Assessment Soft Tissue Mobility Assessment Tenderness to palpation: right trap,, lev.scap., RTC mm, bicep tendon, pec Pressing along pec minor increases symptoms down to fingers PT-OP-K Range of Motion Start: 08/16/22 08:08 Freq: Status: Active Protocol: Document 08/30/22 08:17 TH (Rec: 08/30/22 08:58 TH [id number]) Shoulder Goniometric Range of Motion Shoulder Right Flexion 130 Abduction 130 External Rotation at 0 degrees Abduction 86 Internal Rotation Behind Back (text) Unable Comments Intolerable pain with all planes of movement. PT-OP-L Special Tests Start: 08/16/22 08:08 Freq: Status: Active Protocol: Document 08/16/22 08:15 TH (Rec: 08/16/22 10:31 TH [id number]) Special Tests Cervical Spine Special Tests Spurling's Test Test Results positive right / left PT-OP-Q Treatments Start: 08/16/22 08:08 Freq: Status: Active Protocol: Document 08/30/22 08:17 TH (Rec: 08/30/22 08:58 TH [id number]) Manual Therapy Treatment Manual Techniques 2nd/3rd rib mobilization Comments right GHJ glide Comments GHJ Glides ( post./inf) PT-OP-R Modalities Start: 08/16/22 08:08 Freq: Status: Active Protocol: Document 08/30/22 08:17 TH (Rec: 08/30/22 08:58 TH [id number]) Electric Stimulation Electric Stimulation Right shoulder Comments 15 min ESTIM + HEAT PT-OP-T Assessment and Plan Start: 08/16/22 08:08 Freq: Status: Active Protocol: Document 08/30/22 08:17 TH (Rec: 08/30/22 08:58 TH [id number]) Physical Therapy Assessment Goals Three Impairment Difficult to lift weighted objects ie horse tac equipment . Short Term Goal (STG) Pt will be able to lift 10 lb box and carry 10 feet with right shoulder pain < = 3/10 STG Duration 09/13/22 4 weeks Grocery Stocker Goal (LTG) Pt will be able to lift 10 lb box and carry 10 feet with right shoulder pain with minimal to no pain. LTG Duration 4/27/23 10 weeks Two Impairment Difficult reaching back Short Term Goal (STG) Pt will be able to reach back to right L5 with pain < = 3/10 . STG Duration 09/13/22 4 weeks Grocery Stocker Goal (LTG) Pt will be able to reach back to right T8 with minimal to no pain. LTG Duration 10/25/22 10 weeks One Impairment Difficult to reaching into cupboards to put dishes away. Short Term Goal (STG) Pt will be able to reach above 90 degrees with 2lb weight and pain < = 3/10. STG Duration 09/13/22 4 weeks Grocery Stocker Goal (LTG) Pt will be able to reach above 90 degrees with 5lb weight and minimal to no pain. LTG Duration 10/25/22 10 weeks Assessment Summary Assessment Pt thus far is unale to tolerate most PT ex./ treatment. Advised pt to speak to MD about referral to orthopedic MD for consult to discuss options. Will see pt for 2-3 more viists to finalize HEP, pain reduction, strengthening. Physical Therapy Plan Frequency and Duration Frequency of Treatment 1-2x/wk Duration of treatment (weeks) 10 Plan of Care Start Date 08/16/22 Plan of Care End Date 10/25/22 Therapeutic Interventions Therapeutic Interventions Home Exercise Program,Joint Mobilizations,Manual Therapy, Neuromuscular Re-education, Patient/Caregiver Education, Self-Care/Home Management,Soft Tissue Mobilization,Taping, Therapeutic Activities, Therapeutic Exercises Modalities Cold Pack/Ice Massage,Electric Stimulation,Hot Packs, Traction- Mechanical, Ultrasound Next Visit Focus/Plan Next Visit Plan isometric ex. Joint mob as tolerated ESTIM
--- NOTE | 2022-09-03 08:15 | PT.OTN ---
Current Diagnoses Unspecified rotator cuff tear or rupture of right shoulder, not specified as traumatic (09/03/22) Physical Therapy Treatment Note PT-OP-A Visit Information Start: 08/16/22 08:08 Freq: Status: Active Protocol: Document 09/03/22 07:33 SP (Rec: 09/03/22 08:17 SP [id number]) Out-Patient Physical Therapy Visit Information Visit Information Visit Type Treatment Note Visit Start Time 07:33 Visit Stop Time 08:15 Total Visit Minutes 42 Visit Number 5 Number of SALESPERSON PARTS Visits 1 Precautions Precautions ESTIM caused intense pain throughout shoulder post tx- DC. PT-OP-B Current Condition Start: 08/16/22 08:08 Freq: Status: Active Protocol: Document 08/16/22 08:15 TH (Rec: 08/16/22 10:31 TH [id number]) Current Condition History of Current Condition Current Complaints Chronic Right shoulder pain / rotator tears ( full thickness tears/SLAP) History of Current Condition Pt has long hx of chronic right shoulder pain. She has been recently diagnosed with full thickness tears of rotator cuff , bicep tendinitis and SLAP ( mri done at [facility]). Right shoulder pain has worsened over the last 7 months. Pt was sent to PT for strengthening prior to having steroid injection. Prior Treatments and Tests Spinal stenosis C6 - C7/, bulges C6-C7 to the right , Pt states that shortly after J and J COVID injection she started noticing circulation constrictiuon to bilateral index/middle fingers ( numbness, tingling, coldness, palor) Hx of injection to cervical region without resolution. Treatment Goals Patient/Caregiver Goals Pt has been seen for same in the past and is not hopeful it will help but is following MD instruction before injection. Prior Functional Status Baseline Function- ADL's Independent Baseline Function- Mobility Independent Current Functional Impairments (Reported) Functional Limitations- ADL's IND though ADLs requiring reaching up back and up over head with weight are intolerable. PT-OP-C Subjective Start: 08/16/22 08:08 Freq: Status: Active Protocol: Document 09/03/22 07:33 SP (Rec: 09/03/22 08:17 SP [id number]) OP-PT Subjective Patient Comments Patient Comments Pt reports didn't respond to Estim well, later in day after last tx, had pain all the way through R shoulder rest of the day and during the night like had a heart attack on the opposite side. She reports has been gardening with what can do low wright to keep active. She didn't contact the physican's office for futher imaging. Didn't get to do HEP due to family events this weekend. She stated hot tub feels good and no swelling adverse affects, takes 15mg Meloxocan gives pain relief. Pt reports continues to experience decreased circulation during tx with noted purplish finger tips and various spots lateral finger tip, horizontal lines inferior to DIP jt each UE. Concerned what speciality can see who can help with understanding why experiencing this and what to do going forward. Patient Reported Progress Same PT-OP-F Manual Assessment Start: 08/16/22 08:08 Freq: Status: Active Protocol: Document 08/16/22 08:15 TH (Rec: 08/16/22 10:31 TH [id number]) Manual Assessments Soft Tissue Assessment Soft Tissue Mobility Assessment Tenderness to palpation: right trap,, lev.scap., RTC mm, bicep tendon, pec Pressing along pec minor increases symptoms down to fingers PT-OP-K Range of Motion Start: 08/16/22 08:08 Freq: Status: Active Protocol: Document 08/30/22 08:17 TH (Rec: 08/30/22 08:58 TH [id number]) Shoulder Goniometric Range of Motion Shoulder Right Flexion 130 Abduction 130 External Rotation at 0 degrees Abduction 86 Internal Rotation Behind Back (text) Unable Comments Intolerable pain with all planes of movement. PT-OP-L Special Tests Start: 08/16/22 08:08 Freq: Status: Active Protocol: Document 08/16/22 08:15 TH (Rec: 08/16/22 10:31 TH [id number]) Special Tests Cervical Spine Special Tests Spurling's Test Test Results positive right / left PT-OP-Q Treatments Start: 08/16/22 08:08 Freq: Status: Active Protocol: Document 09/03/22 07:33 SP (Rec: 09/03/22 08:17 SP [id number]) Therapeutic Exercises Supine Exercises CS rotation, SB Supine Exercise Name reviewed self HEP- only position tolerated/good results HABD Supine Exercise Name added to HEP Side bilateral Reps/Minutes x8 reps Comments painfree midrange (pain serratus press Supine Exercise Name added to HEP Side right Reps/Minutes x8 reps Comments painfree and normal finger circulation Standing Exercises [place], [place], LS Standing Exercise Name R Reps/Minutes 10SH Comments good feedback neck stretch isometric Standing Exercise Name IR, ER, extension, flexion ( added HEP) Side right Reps/Minutes 5 sec hold x5 reps- painfree ext/ER Comments IR (pn teres Pool region radiate down tricep), flexion (pn bicep) Other Exercises self STMs Other Exercise Name reviewed ball wall: interscap RHomboid/LS, mid infraspinatus Side right Comments good feedback response- (pain if more lateral) Manual Therapy Treatment Soft Tissue Mobilization R shld Body Location Subscap (supine), infraspinatus, Rhomboid Mobilization Type Strumming,Sustained Pressure Intensity/Depth Moderate Body Position Sidelying Comments manual Joint Mobilizations scapulothoracic Joint R Direction pro/retraction/UR/DR Grade II Body Position Sidelying Comments painfree GH jt Joint R Direction inferior, posterior Grade II Body Position Hooklying Comments painfree Manual Techniques PROM Comments right shld in all planes, painfree range PT-OP-R Modalities Start: 08/16/22 08:08 Freq: Status: Active Protocol: Document 08/30/22 08:17 TH (Rec: 08/30/22 08:58 TH [id number]) Electric Stimulation Electric Stimulation Right shoulder Comments 15 min ESTIM + HEAT PT-OP-T Assessment and Plan Start: 08/16/22 08:08 Freq: Status: Active Protocol: Document 09/03/22 07:33 SP (Rec: 09/03/22 08:17 SP [id number]) Physical Therapy Assessment Goals Three Impairment Difficult to lift weighted objects ie horse tac equipment . Short Term Goal (STG) Pt will be able to lift 10 lb box and carry 10 feet with right shoulder pain < = 3/10 STG Duration 09/13/22 4 weeks Mcfp Goal (LTG) Pt will be able to lift 10 lb box and carry 10 feet with right shoulder pain with minimal to no pain. LTG Duration 10/25/22 10 weeks Two Impairment Difficult reaching back Short Term Goal (STG) Pt will be able to reach back to right L5 with pain < = 3/10 . STG Duration 09/13/22 4 weeks Mercury Cell Cleaner Goal (LTG) Pt will be able to reach back to right T8 with minimal to no pain. LTG Duration 10/25/22 10 weeks One Impairment Difficult to reaching into cupboards to put dishes away. Short Term Goal (STG) Pt will be able to reach above 90 degrees with 2lb weight and pain < = 3/10. STG Duration 09/13/22 4 weeks Mcfp Goal (LTG) Pt will be able to reach above 90 degrees with 5lb weight and minimal to no pain. LTG Duration 10/25/22 10 weeks Assessment Summary Assessment Pt reports no significant improvement in pain and circulation to finger concerns . Noted approx 3 min of brief light purplish R fingertips 1- 4 and pt white spots 4th fingers B proximal to DIP post manual. Cues for scapular stabilization setting during standing isometrics. She states perform neck stretches when needed and manual STM use ball wall interscap with good feedback results. SHe stated if perform to lateral over distal infraspinatus region get tingling down post arm and fingers along ulnar distribution so doesn't perform that region. Good understanding with isometrics: ext, IR, reports increased pain ER/flexion, discussed gentle pressure when provided manual feedback. Physical Therapy Plan Frequency and Duration Frequency of Treatment 1-2x/wk Duration of treatment (weeks) 10 Plan of Care Start Date 08/16/22 Plan of Care End Date 10/25/22 Therapeutic Interventions Therapeutic Interventions Home Exercise Program,Joint Mobilizations,Manual Therapy, Neuromuscular Re-education, Patient/Caregiver Education, Self-Care/Home Management,Soft Tissue Mobilization,Taping, Therapeutic Activities, Therapeutic Exercises Modalities Cold Pack/Ice Massage,Electric Stimulation,Hot Packs, Traction- Mechanical, Ultrasound Other Referrals/Consults Referrals/Consults Recommended Discuss to call ordering physican and follow up with no significant improvement in pain reducation, continued changes in fingertip circulation purple and white spots/lines B. Next Visit Focus/Plan Next Note Type Discharge Summary Next Visit Plan Recheck if have appt with orthopedic, discuss if continuing PT if so need add more appts. POC: REview isometric HEP. Joint mob as tolerated *DC ESTIM
--- NOTE | 2022-09-06 15:12 | PT.OPDS ---
Current Diagnoses Unspecified rotator cuff tear or rupture of right shoulder, not specified as traumatic (09/03/22) Visit Care Team Role Provider Type Kamila Reese DO Attending Provider Non-Staff Family Provider Primary Care Provider Referring Provider Specialty: Family Practice Address: [address], [place], [address] Email: Visit Number Visit Number 5 Discharge Summary PT-OP-B Current Condition Start: 08/16/22 08:08 Freq: Status: Active Protocol: Document 08/16/22 08:15 TH (Rec: 08/16/22 10:31 TH [id number]) Current Condition History of Current Condition Current Complaints Chronic Right shoulder pain / rotator tears ( full thickness tears/SLAP) History of Current Condition Pt has long hx of chronic right shoulder pain. She has been recently diagnosed with full thickness tears of rotator cuff , bicep tendinitis and SLAP ( mri done at [facility]). Right shoulder pain has worsened over the last 7 months. Pt was sent to PT for strengthening prior to having steroid injection. Prior Treatments and Tests Spinal stenosis C6 - C7/, bulges C6-C7 to the right , Pt states that shortly after J and J COVID injection she started noticing circulation constrictiuon to bilateral index/middle fingers ( numbness, tingling, coldness, palor) Hx of injection to cervical region without resolution. Treatment Goals Patient/Caregiver Goals Pt has been seen for same in the past and is not hopeful it will help but is following MD instruction before injection. Prior Functional Status Baseline Function- ADL's Independent Baseline Function- Mobility Independent Current Functional Impairments (Reported) Functional Limitations- ADL's IND though ADLs requiring reaching up back and up over head with weight are intolerable. PT-OP-C Subjective Start: 08/16/22 08:08 Freq: Status: Active Protocol: Document 09/03/22 07:33 SP (Rec: 09/03/22 08:17 SP [id number]) OP-PT Subjective Patient Comments Patient Comments Pt reports didn't respond to Estim well, later in day after last tx, had pain all the way through R shoulder rest of the day and during the night like had a heart attack on the opposite side. She reports has been gardening with what can do low wright to keep active. She didn't contact the physican's office for futher imaging. Didn't get to do HEP due to family events this weekend. She stated hot tub feels good and no swelling adverse affects, takes 15mg Meloxocan gives pain relief. Pt reports continues to experience decreased circulation during tx with noted purplish finger tips and various spots lateral finger tip, horizontal lines inferior to DIP jt each UE. Concerned what speciality can see who can help with understanding why experiencing this and what to do going forward. Patient Reported Progress Same PT-OP-F Manual Assessment Start: 08/16/22 08:08 Freq: Status: Active Protocol: Document 08/16/22 08:15 TH (Rec: 08/16/22 10:31 TH [id number]) Manual Assessments Soft Tissue Assessment Soft Tissue Mobility Assessment Tenderness to palpation: right trap,, lev.scap., RTC mm, bicep tendon, pec Pressing along pec minor increases symptoms down to fingers PT-OP-K Range of Motion Start: 08/16/22 08:08 Freq: Status: Active Protocol: Document 08/30/22 08:17 TH (Rec: 08/30/22 08:58 TH [id number]) Shoulder Goniometric Range of Motion Shoulder Right Flexion 130 Abduction 130 External Rotation at 0 degrees Abduction 86 Internal Rotation Behind Back (text) Unable Comments Intolerable pain with all planes of movement. PT-OP-L Special Tests Start: 08/16/22 08:08 Freq: Status: Active Protocol: Document 08/16/22 08:15 TH (Rec: 08/16/22 10:31 TH [id number]) Special Tests Cervical Spine Special Tests Spurling's Test Test Results positive right / left PT-OP-T Assessment and Plan Start: 08/16/22 08:08 Freq: Status: Active Protocol: Document 09/06/22 15:08 TH (Rec: 09/06/22 15:12 TH [id number]) Physical Therapy Assessment Goals Three Impairment Difficult to lift weighted objects ie horse tac equipment . Short Term Goal (STG) Pt will be able to lift 10 lb box and carry 10 feet with right shoulder pain < = 3/10 STG Duration 09/13/22 4 weeks NOT MET Mcfp Goal (LTG) Pt will be able to lift 10 lb box and carry 10 feet with right shoulder pain with minimal to no pain. LTG Duration 10/25/22 10 weeks Two Impairment Difficult reaching back Short Term Goal (STG) Pt will be able to reach back to right L5 with pain < = 3/10 . STG Duration 09/13/22 4 weeks NOT MET Packager Goal (LTG) Pt will be able to reach back to right T8 with minimal to no pain. LTG Duration 10/25/22 10 weeks One Impairment Difficult to reaching into cupboards to put dishes away. Short Term Goal (STG) Pt will be able to reach above 90 degrees with 2lb weight and pain < = 3/10. STG Duration 09/13/22 4 weeks NOT MET Packager Goal (LTG) Pt will be able to reach above 90 degrees with 5lb weight and minimal to no pain. LTG Duration 10/25/22 10 weeks Assessment Summary Assessment Pt was not able to tolerate PT intervention as it was increasing shld pain despite multiple interventions. Spoke to pt. about f/u with ortho MD to discuss options. Pt. has multiple RTC tears with full thickness tear of subscapularis. As result pain was too great to attempt strengthening. Physical Therapy Plan Discharge Physical Therapy Discharge Reasons Plateau in Progress Discharge Comments See assessment.
== END 2022-09-07 12:08 | disposition home or self-care (01) ==
LOC: PHYS 07:30
PROVIDERS: Family Provider Family Medicine; PCP Family Medicine; Referring Provider Family Medicine; Visit Provider Family Medicine
DX: M75.101 Unspecified rotator cuff tear or rupture of right shoulder, not specified as traumatic (principal)
CPT/HCPCS: 97014; 97032; 97110; 97140; 97161; G0283

== ENCOUNTER 2023-08-23 15:52 | Emergency (ER) | payer OTHER, MEDICAID, SELFPAY ==
[2019-09-21 10:20] VITALS: PULSE 116; RESP 16; O2SAT 93
[2019-09-21 14:54] VITALS: BMI 27.8
[2023-08-23 16:21] VITALS: BP 180/94; PULSE 85; RESP 20; TEMP 36.6; O2SAT 99; BMI 29.6
--- NOTE | 2023-08-23 16:26 | DI.RAD.S_ITS ---
PROCEDURE: XR ANKLE RT MIN 3V INDICATIONS: pain, swelling TECHNIQUE: 3 views of the ankle were acquired. COMPARISON: [facility], CR, XR ANKLE RT MIN 3V, 05/15/2022, 15:12. FINDINGS: Bones: No fractures or dislocations. Ankle mortise is normally aligned. No suspicious bony lesions. Soft tissues: No tibiotalar joint effusion. Achilles tendon appears normal. IMPRESSION: No acute bony abnormality or significant effusion. Dictated by: Reynaldo Jerez M.D. on 08/23/2023 at 17:01 Approved by: Reynaldo Jerez M.D. on 08/23/2023 at 17:02
--- NOTE | 2023-08-23 17:25 | DI.RAD.S_ITS ---
PROCEDURE: XR FOOT RT MIN 3V INDICATIONS: foot injury TECHNIQUE: 3 views of the foot were acquired. COMPARISON: [facility], , XR FOOT RT MIN 3V, 05/15/2022, 13:22. FINDINGS: Bones: No fractures or dislocations. No suspicious bony lesions. First MTP arthrodesis. Soft tissues: No tibiotalar joint effusion. Achilles tendon appears normal. IMPRESSION: No acute bony abnormality. Dictated by: Aleks Ba M.D. on 08/23/2023 at 18:08 Approved by: Aleks Ba M.D. on 08/23/2023 at 18:09
--- NOTE | 2023-08-23 18:23 | ED_ITS ---
HPI - Extremity Problem <Liana Chen PA-C - Last Filed: 08/23/23 19:09> General Chief complaint: Extremity Problem,Nontraumatic Stated complaint: rt ankle injury History of Present Illness HPI Narrative: Patient is a 58-year-old female presenting for evaluation sharp pain to her dorsal lateral proximal right foot after stepping with force onto a shovel while digging. She reports after stopping, she felt immediate pain in this area in addition to a numb in his across the bottom of her foot. She reports the numbness is improving. She also endorses occasional shoots of nerve like pain along the back of her ankle. She denies any pain to palpation of the back of her ankle. She reports previous injury and reconstruction at the end of 2021 after an accident with a horse. She also reports a previous surgery of bunionectomy and repair of that surgery in past years on the same foot. She has been following up with a oil change technician regularly due to the complications from these injuries, and plans to follow up with this provider regarding this issue as well. She reports that she can dorsiflex her toes without issue and plantar flex and invert and elier, but when her right heel is caught on the chair and pulled away from the direction of her body, it recreates the pain she feels on her dorsal lateral proximal foot. She reports improvement in her symptoms with elevation. She states that she has been taking Tylenol and ibuprofen Related Data Home Medications Medication Instructions Recorded Confirmed clonazepam 1 mg tablet 1 mg PO BEDTIME ##0 08/15/17 03/13/22 Previous Rx's Medication Instructions Recorded prednisone 20 mg tablet 20 mg PO DAILY large local 03/13/22 reaction to beesting #9 tabs hydrocodone 5 mg-acetaminophen 325 1 tab PO Q4-6H PRN pain #20 tabs 05/15/22 mg tablet Allergies Allergy/AdvReac Type Severity Reaction Status Date / Time sulfamethoxazole AdvReac Mild N/V Verified 05/15/22 13:17 [From Bactrim] trimethoprim [From Bactrim] AdvReac Mild N/V Verified 05/15/22 13:17 Review of Systems <Liana Chen PA-C - Last Filed: 08/23/23 19:09> Review of Systems Narrative: see HPI Patient History <Liana Chen PA-C - Last Filed: 08/23/23 19:09> Medical History Benzodiazepine overdose Depression (11/05/13) Diverticulitis Social History household members: family Smoking Status: Never smoker Smoking Status: Never smoker alcohol intake frequency: 0-2 drinks per day Substance Use Type: does not use Exam <Liana Chen PA-C - Last Filed: 08/23/23 19:09> Initial Vital Signs Initial Vital Signs: Vital Signs Temperature 97.9 F 08/23/23 16:21 Pulse Rate 85 08/23/23 16:21 Respiratory Rate 20 08/23/23 16:21 Blood Pressure 180/94 H 08/23/23 16:21 Pulse Oximetry 99 08/23/23 16:21 Oxygen Delivery Method Room Air 08/23/23 16:21 GENERAL: 58 year old patient appears stated age. Well-developed patient, in no acute distress. HEAD: Atraumatic. Normocephalic. EYES: Pupils equal round. NECK: Trachea midline, supple RESPIRATORY: Speaking comfortably normal tone of voice without any increased work of breathing. EXTREMITIES: Tenderness to palpation over right foot cuboid, appropriate plantar flexion with Loco test, no swelling noted to right ankle or foot, patient demonstrates intact dorsiflexion and plantar flexion against resistance with 5/5 strength, she demonstrates inversion and eversion active range of motion with no pain. No high ankle pain, no medial or lateral malleolus tenderness present, no numbness present on plantar toes, patient has mild tenderness over bottom foot, pain reproduced at cuboid when she pulled her right leg back and right heel caught on blankets, not reproduced with manipulation of heel NEURO: AOx3. SKIN: No bruising noted over right foot, ankle or over posterior lower leg <Kamila Avilez DO - Last Filed: 08/23/23 23:27> Initial Vital Signs Initial Vital Signs: Vital Signs Temperature 97.9 F 08/23/23 16:21 Pulse Rate 85 08/23/23 16:21 Respiratory Rate 20 08/23/23 16:21 Blood Pressure 180/94 H 08/23/23 16:21 Pulse Oximetry 99 08/23/23 16:21 Oxygen Delivery Method Room Air 08/23/23 16:21 Course <Liana Chen PA-C - Last Filed: 08/23/23 19:09> Orders Ordered: ED Orders 08/23/23 16:26 XR ankle RT min 3V Stat 08/23/23 17:25 XR foot RT min 3V Stat Vital Signs Vital signs: Vital Signs - 8 hr 08/23/23 16:21 08/23/23 18:57 Temperature 97.9 F Pulse Rate 85 77 Respiratory Rate 20 18 Blood Pressure 180/94 H 195/106 H Pulse Oximetry 99 100 Oxygen Delivery Method Room Air Room Air <Kamila Avilez DO - Last Filed: 08/23/23 23:27> Orders Ordered: ED Orders 08/23/23 16:26 XR ankle RT min 3V Stat 08/23/23 17:25 XR foot RT min 3V Stat Vital Signs Vital signs: Vital Signs - 8 hr 08/23/23 16:21 08/23/23 18:57 Temperature 97.9 F Pulse Rate 85 77 Respiratory Rate 20 18 Blood Pressure 180/94 H 195/106 H Pulse Oximetry 99 100 Oxygen Delivery Method Room Air Room Air MDM - Extremity (Nontraumatic) <Liana Chen PA-C - Last Filed: 08/23/23 19:09> Imaging Data XR Ankle Rt: Radiologist's Impression: PROCEDURE: XR ANKLE RT MIN 3V INDICATIONS: pain, swelling TECHNIQUE: 3 views of the ankle were acquired. COMPARISON: [facility], XR ANKLE RT MIN 3V, 05/15/2022, 15:12. FINDINGS: Bones: No fractures or dislocations. Ankle mortise is normally aligned. No suspicious bony lesions. Soft tissues: No tibiotalar joint effusion. Achilles tendon appears normal. IMPRESSION: No acute bony abnormality or significant effusion. Dictated by: Reynaldo Jerez M.D. on 08/23/2023 at 17:01 Approved by: Reynaldo Jerez M.D. on 08/23/2023 at 17:02 XR Foot Rt: Radiologist's Impression: PROCEDURE: XR FOOT RT MIN 3V INDICATIONS: foot injury TECHNIQUE: 3 views of the foot were acquired. COMPARISON: [facility], XR FOOT RT MIN 3V, 05/15/2022, 13:22. FINDINGS: Bones: No fractures or dislocations. No suspicious bony lesions. First MTP arthrodesis. Soft tissues: No tibiotalar joint effusion. Achilles tendon appears normal. IMPRESSION: No acute bony abnormality. Dictated by: Aleks Ba M.D. on 08/23/2023 at 18:08 Approved by: Aleks Ba M.D. on 08/23/2023 at 18:09 [facility] Narrative Medical decision making narrative: Patient is a 58-year-old female presenting for evaluation of proximal dorsal lateral foot pain after stepping hard onto a shovel early this afternoon. X-ray of foot and ankle did not show evidence of effusion or fracture. Discussed with patient that I think symptoms are most consistent with a sprain of her foot. I recommend that she wear a boot to help keep her foot in a 90 degree orientation. Attempted boot, but patient feels that it worsens her pain unless she walks mostly on her heel. We will not proceed with the boot, but I recommend crutches, Jr wrap and nonweightbearing of her right foot. While at rest, I recommend she keep her foot elevated, resting, and applying ice and compression with an Jr wrap. I recommend further follow up with her orthopedic and have provided her the number for [facility] orthopedics if she is unable to get in to see her orthopedic provider. Patient's symptoms improved over duration of stay with above-stated therapies. Patient tolerated boot well. I recommend continued follow up with her orthopedic this week and continue bearing weight and activity as tolerated while wearing boot. Findings and discharge diagnosis discussed with patient/family followed by verbalization of understanding Return precautions discussed with patient/family whom verbalize understanding of diagnosis and plan Discharge Plan Departure Patient Disposition: Home Clinical Impression: Right foot sprain Qualifiers: Encounter type: initial encounter Qualified Code(s): S93.601A - Unspecified sprain of right foot, initial encounter Activity Restrictions/Additional Instructions: Thank you for coming in today for your care. *You have been diagnosed with right foot sprain. X-rays of the right foot and right ankle did not show any evidence of fracture. *What to do: Please follow up with your Orthopedic as we discussed for further evaluation of your right foot sprain. I recommend that you continue treatment with rest ice elevation and compression with an Jr wrap. You may also take Tylenol and ibuprofen. We discussed using a boot for stability while walking around, but since it seemed to exacerbate your discomfort of your foot, I recommend crutches with an jr wrap and remain nonweight bearing of your right foot. If you are unable to get in with your orthopedic. You may call [facility] at and told them that you were seen in the emergency department. *Return to Emergency Department if you should have any new, worsening or concerning symptoms, such as severe pain in your right foot, instability of your right ankle and foot or other concerning signs or symptoms. Prescriptions: No Action prednisone 20 mg tablet 20 mg PO DAILY Qty: 9 0RF Rx Instructions: Take 3 tablets by mouth once a day x1 day, then take 2 tablets by mouth once a day x2 days, then take 1 tablet by mouth once a day x2 days. clonazepam 1 MG tablet 1 mg PO BEDTIME Qty: 0 hydrocodone-acetaminophen 5-325 mg tablet 1 tab PO Q4-6H PRN (Reason: pain) Qty: 20 0RF Referrals: Kamila Reese DO [Primary Care Provider] - Stand Alone Forms: Patient Portal/API ED Sign-out <Kamila Avilez DO - Last Filed: 08/23/23 23:27> Cosign ED Attending Hailee Attestation: I was immediately available in the department for consultation.
[2023-08-23 18:57] VITALS: BP 195/106; PULSE 77; RESP 18; O2SAT 100
--- NOTE | 2023-08-23 18:59 | PC.NURSE ---
MANAGER WAREHOUSE note: high bp, taken right after walking boot was put on. pt was in pain, RN aware
== END 2023-08-23 19:09 | disposition home or self-care (01) ==
PROVIDERS: Emergency Provider Physician Assistant; Family Provider Family Medicine; PCP Family Medicine
DX: S93.601A Unspecified sprain of right foot, initial encounter (principal); X58.XXXA Exposure to other specified factors, initial encounter
CPT/HCPCS: 73610; 73630; 99283

== ENCOUNTER 2023-11-13 09:45 | Outpatient (RCR) | payer OTHER, MEDICAID, SELFPAY ==
[2019-09-21 10:20] VITALS: PULSE 116; RESP 16; O2SAT 93
[2019-09-21 14:54] VITALS: BMI 27.8
--- NOTE | 2023-10-17 16:00 | PT.OIE ---
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) Other abnormalities of gait and mobility (10/17/23) Past Medical History (Last Reviewed 08/23/23 @ 18:44 by Liana Chen PA-C) Benzodiazepine overdose Depression (11/05/13) Diverticulitis Visit Care Team Role Provider Type Kamila Reese DO Family Provider Non-Staff Primary Care Provider Specialty: Family Practice Address: [address] [place] [address], [id number] Email: Jama Tinsley DO Attending Provider Non-Staff Referring Provider Specialty: Orthopedic Surgery Address: [address] [place] [address], [id number] Email: Physical Therapy Initial Evaluation PT-OP-A Visit Information Start: 10/17/23 17:40 Freq: Status: Active Protocol: Document 10/17/23 15:15 DCW (Rec: 10/17/23 17:53 DCW [id number]) Out-Patient Physical Therapy Visit Information Visit Information Visit Type Initial Evaluation Visit Start Time 15:15 Visit Stop Time 16:00 Visit Number 1 Number of FINDING FASTENER Visits 0 Evaluation Information Evaluation Date 10/17/23 Precautions Precautions Post-op protocol: Weeks 6-10 Goals: -Full ROM -Increased hamstring and quad strength -Continue general conditioning Plan: -Full symmetric ROM -Normal Gait -Continue with strengthening -Squats okay to 90? PT-OP-B Current Condition Start: 10/17/23 17:40 Freq: Status: Active Protocol: Document 10/17/23 15:15 DCW (Rec: 10/17/23 17:53 DCW [id number]) Current Condition History of Current Condition Onset Date 09/03/23 Current Complaints s/p surgical repair of complex left meniscus injury History of Current Condition Pt is a 58 year old female presenting to skilled therapy six weeks s/p surgical repair of left complex meniscus injury. Pt notes she has had prior meniscus surgeries bilaterally, but this was by far the most complex, and has been a more difficult recovery so far. Additionally, pt notes that she has been experiencing nerve issues in her left leg, mainly from lateral knee across anterior calderon to medial ankle, feeling of burning, cold, and muted sensation. Pt reports that she was 50% weight bearing for 5 weeks post op with use of axillary crutches. Pt reports she was not provided with a knee immobilizer after surgery . Has been compliant with suggested HEP post-op. Reports that she feels her walking has been alright, but does note increased pain with most weight bearing. Uses bike at home, which typically she is able to tolerate very well. Has difficulty with squats, completely unable to kneel at this time. Feels an increased knee pain with descending steps. PT-OP-C Subjective Start: 10/17/23 17:40 Freq: Status: Active Protocol: Document 10/17/23 15:15 DCW (Rec: 10/17/23 17:53 DCW [id number]) OP-PT Subjective Patient Comments Patient Comments This is a lot tougher recovery than any of my other surgeries. It's really frustrating. Patient Questionnaires Lower Extremity Functional Scale LEFS Score 45/80 = 56.25% LEFS Impairment 40 to 59% Impaired (Score 32- 47) PT-OP-F Manual Assessment Start: 10/17/23 17:40 Freq: Status: Active Protocol: Document 10/17/23 15:15 DCW (Rec: 10/18/23 08:39 DCW [id number]) Manual Assessments Soft Tissue Assessment Soft Tissue Mobility Assessment Increased tone, tenderness to palpation 2/4: Pain with wincing along left distal hamstrings and proximal calf. Mild left knee joint effusion PT-OP-G Mobility & Gait Start: 10/17/23 17:40 Freq: Status: Active Protocol: Document 10/17/23 15:15 DCW (Rec: 10/18/23 08:39 DCW [id number]) OP Gait Assessment Gait Gait Assistance Required: Independent Assistive Devices Assistive Device None Gait Deviations General Gait Pattern Antalgic Comments Gait Comments Mild altalgic gait Stair Climbing Evaluation Technique/Endurance Stair Climbing Direction Ascend and Descend Stair Climbing Technique Step Over Step Comments Stair Climbing Comments Pain with very slight uncontrolled descent when lowering with left leg PT-OP-J Posture/Palpation/Skin Start: 10/17/23 17:40 Freq: Status: Active Protocol: Document 10/17/23 15:15 DCW (Rec: 10/18/23 08:39 DCW [id number]) Skin Assessment Circumference Measurement 3 Location 10 cm superior L patella Measurement (Centimeters) 48.6 Comments R=48.1 cm 2 Location L Joint line Measurement (Centimeters) 43.0 Comments R=43.0 cm 1 Location 10 cm inferior L patella Measurement (Centimeters) 40.7 Comments R=38.6 cm Incisional Assessment Incision Appearance/Comments Small scope incisions well healing, C, D, I PT-OP-K Range of Motion Start: 10/17/23 17:40 Freq: Status: Active Protocol: Document 10/17/23 15:15 DCW (Rec: 10/18/23 08:39 DCW [id number]) Knee Goniometric Range of Motion Knee Right Patient Position Supine Flexion Active (degrees) 134 Hyper-Extension Active 2 Left Patient Position Supine Flexion Active (degrees) 114 Hyper-Extension Active 1 PT-OP-L Special Tests Start: 10/17/23 17:40 Freq: Status: Active Protocol: Document 10/17/23 15:15 DCW (Rec: 10/18/23 08:39 DCW [id number]) Special Tests Knee Special Tests Varus- 25 Degrees Test Results Negative Valgus- 25 Degrees Test Results Negative Posterior Draw Test Results Negative Anterior Draw Test Results Negative PT-OP-M Strength Start: 10/17/23 17:40 Freq: Status: Active Protocol: Document 10/17/23 15:15 DCW (Rec: 10/18/23 08:39 DCW [id number]) Knee Strength Knee Manual Muscle Testing Left Flexion (S2) 4 Good Extension (L3) 4- Good- PT-OP-Q Treatments Start: 10/17/23 17:40 Freq: Status: Active Protocol: Document 10/17/23 15:15 DCW (Rec: 10/17/23 17:53 DCW [id number]) Therapeutic Exercises Supine Exercises Hamstring Stretch Supine Exercise Name HS stretch /c strap Side left Standing Exercises Calf stretch Standing Exercise Name Runner's stretch Side left PT-OP-T Assessment and Plan Start: 10/17/23 17:40 Freq: Status: Active Protocol: Document 10/17/23 15:15 DCW (Rec: 10/18/23 08:51 DCW [id number]) Physical Therapy Assessment Rehab Potential Rehabilitation Potential Excellent Evaluation Complexity Number of Personal Factors/Comorbidities 1-2 Number of Body Systems Impaired 1-2 Clinical Presentation at Evaluation Stable Impairments Impairments Activity Tolerance,Functional Activities,Functional Mobility ,Gait,Pain,ROM,Soft Tissue Mobility,Strength,Tone Goals Three Impairment Left knee extension MMT 4-/5 Mcfp Goal (LTG) Pt to exhibit increased knee extension strength to at least 4+/5 in order to improve ability to perform fullest squat allowable per post-op protocol LTG Duration 12/17/23 Two Impairment Left knee ROM flexion limitation (ROM -1?-114?) Technical Cable Jointer Goal (LTG) Pt to increase left knee flexion to >129? in order to return to prior functional levels with gym activities LTG Duration 12/17/23 One Impairment Pt does not have an appropriate home exercise program Short Term Goal (STG) Pt to be independent and compliant with an appropriate HEP STG Duration 11/16/23 Assessment Summary Assessment Pt overall doing very well 6+ weeks s/p surgery intervention of complex meniscus repair. Has met all post-op protocol goals for 4-6 weeks ( ambulation /s brace, ROM 0?-90 ?), has been compliant with HEP provided by surgeon. Pt should benefit from continuing to focus on quad and hamstring strength, gait/stair training, and ROM, with additional progression to balance/propreception when cleared per protocol. Physical Therapy Plan Frequency and Duration Frequency of Treatment 2x/Week Plan of Care Start Date 10/17/23 Plan of Care End Date 12/17/23 Therapeutic Interventions Therapeutic Interventions Balance Training,Coordination Training,Gait Training,Home Exercise Program,Joint Mobilizations,Manual Therapy, Neuromuscular Re-education, Patient/Caregiver Education, Self-Care/Home Management,Soft Tissue Mobilization, Therapeutic Activities, Therapeutic Exercises Next Visit Focus/Plan Next Note Type Treatment Note Next Visit Plan LE strengthening, gait training, knee ROM
--- NOTE | 2023-10-17 16:01 | PT.OPPOC ---
Physical, Occupational & Speech Therapy At [facility] 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) Other abnormalities of gait and mobility (10/17/23) Visit Care Team Role Provider Type Kamila Reese DO Family Provider Non-Staff Primary Care Provider Specialty: Family Practice Address: [address] [place] [address], [id number] Email: Jama Tinsley DO Attending Provider Non-Staff Referring Provider Specialty: Orthopedic Surgery Address: [address] [place] [address], [id number] Email: Plan Of Care PT-OP-T Assessment and Plan Start: 10/17/23 17:40 Freq: Status: Active Protocol: Document 10/17/23 15:15 DCW (Rec: 10/18/23 08:51 DCW [id number]) Physical Therapy Assessment Rehab Potential Rehabilitation Potential Excellent Evaluation Complexity Number of Personal Factors/Comorbidities 1-2 Number of Body Systems Impaired 1-2 Clinical Presentation at Evaluation Stable Impairments Impairments Activity Tolerance,Functional Activities,Functional Mobility ,Gait,Pain,ROM,Soft Tissue Mobility,Strength,Tone Goals Three Impairment Left knee extension MMT 4-/5 Manager Hvac Goal (LTG) Pt to exhibit increased knee extension strength to at least 4+/5 in order to improve ability to perform fullest squat allowable per post-op protocol LTG Duration 12/17/23 Two Impairment Left knee ROM flexion limitation (ROM -1?-114?) Manager Hvac Goal (LTG) Pt to increase left knee flexion to >129? in order to return to prior functional levels with gym activities LTG Duration 12/17/23 One Impairment Pt does not have an appropriate home exercise program Short Term Goal (STG) Pt to be independent and compliant with an appropriate HEP STG Duration 11/16/23 Assessment Summary Assessment Pt overall doing very well 6+ weeks s/p surgery intervention of complex meniscus repair. Has met all post-op protocol goals for 4-6 weeks ( ambulation /s brace, ROM 0?-90 ?), has been compliant with HEP provided by surgeon. Pt should benefit from continuing to focus on quad and hamstring strength, gait/stair training, and ROM, with additional progression to balance/propreception when cleared per protocol. Physical Therapy Plan Frequency and Duration Frequency of Treatment 2x/Week Plan of Care Start Date 10/17/23 Plan of Care End Date 12/17/23 Therapeutic Interventions Therapeutic Interventions Balance Training,Coordination Training,Gait Training,Home Exercise Program,Joint Mobilizations,Manual Therapy, Neuromuscular Re-education, Patient/Caregiver Education, Self-Care/Home Management,Soft Tissue Mobilization, Therapeutic Activities, Therapeutic Exercises Next Visit Focus/Plan Next Note Type Treatment Note Next Visit Plan LE strengthening, gait training, knee ROM Plan of Care Dates Plan of Care Start Date 10/17/23 Plan of Care End Date 12/17/23 Electronically Signed by: Abraham Masters, PT 10/18/23 0851 If you are in agreement with this Plan of Care, please return a signed and dated copy. I have reviewed this Plan of Care and certify that the skilled therapy services above are required to meet the patient?s needs. Physician Signature Date Printed Name and Credentials Clinical Instructor Signature Printed Name and Credentials
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
--- NOTE | 2023-10-24 16:17 | PT.OTN ---
Current Diagnoses Stiffness of left knee, not elsewhere classified (10/24/23) Muscle weakness (generalized) (10/24/23) Chondromalacia, left knee (10/24/23) Other abnormalities of gait and mobility (10/24/23) Physical Therapy Treatment Note PT-OP-A Visit Information Start: 10/17/23 17:40 Freq: Status: Active Protocol: Document 10/24/23 09:45 SW (Rec: 10/24/23 10:33 SW [id number]) Out-Patient Physical Therapy Visit Information Visit Information Visit Type Treatment Note Visit Start Time 09:45 Visit Stop Time 10:25 Visit Number 3 Number of EVALUATION ADVISOR Visits 1 Precautions Precautions Post-op protocol: Weeks 6-10 Goals: -Full ROM -Increased hamstring and quad strength -Continue general conditioning Plan: -Full symmetric ROM -Normal Gait -Continue with strengthening -Squats okay to 90? PT-OP-B Current Condition Start: 10/17/23 17:40 Freq: Status: Active Protocol: Document 10/17/23 15:15 DCW (Rec: 10/17/23 17:53 DCW [id number]) Current Condition History of Current Condition Onset Date 09/03/23 Current Complaints s/p surgical repair of complex left meniscus injury History of Current Condition Pt is a 58 year old female presenting to skilled therapy six weeks s/p surgical repair of left complex meniscus injury. Pt notes she has had prior meniscus surgeries bilaterally, but this was by far the most complex, and has been a more difficult recovery so far. Additionally, pt notes that she has been experiencing nerve issues in her left leg, mainly from lateral knee across anterior calderon to medial ankle, feeling of burning, cold, and muted sensation. Pt reports that she was 50% weight bearing for 5 weeks post op with use of axillary crutches. Pt reports she was not provided with a knee immobilizer after surgery . Has been compliant with suggested HEP post-op. Reports that she feels her walking has been alright, but does note increased pain with most weight bearing. Uses bike at home, which typically she is able to tolerate very well. Has difficulty with squats, completely unable to kneel at this time. Feels an increased knee pain with descending steps. PT-OP-C Subjective Start: 10/17/23 17:40 Freq: Status: Active Protocol: Document 10/24/23 09:45 SW (Rec: 10/24/23 10:33 SW [id number]) OP-PT Subjective Patient Comments Patient Comments Pt reports being ill, has not done any PT exercises since last session. Pt reports extra hard to get moving in the morning, cold makes a difference. Pt reports this is the hardest recovery from surgeries that pt has had. PT-OP-F Manual Assessment Start: 10/17/23 17:40 Freq: Status: Active Protocol: Document 10/17/23 15:15 DCW (Rec: 10/18/23 08:39 DCW [id number]) Manual Assessments Soft Tissue Assessment Soft Tissue Mobility Assessment Increased tone, tenderness to palpation 2/: Pain with wincing along left distal hamstrings and proximal calf. Mild left knee joint effusion PT-OP-G Mobility & Gait Start: 10/17/23 17:40 Freq: Status: Active Protocol: Document 10/17/23 15:15 DCW (Rec: 10/18/23 08:39 DCW [id number]) OP Gait Assessment Gait Gait Assistance Required: Independent Assistive Devices Assistive Device None Gait Deviations General Gait Pattern Antalgic Comments Gait Comments Mild altalgic gait Stair Climbing Evaluation Technique/Endurance Stair Climbing Direction Ascend and Descend Stair Climbing Technique Step Over Step Comments Stair Climbing Comments Pain with very slight uncontrolled descent when lowering with left leg PT-OP-J Posture/Palpation/Skin Start: 10/17/23 17:40 Freq: Status: Active Protocol: Document 10/17/23 15:15 DCW (Rec: 10/18/23 08:39 DCW [id number]) Skin Assessment Circumference Measurement 3 Location 10 cm superior L patella Measurement (Centimeters) 48.6 Comments R=48.1 cm 2 Location L Joint line Measurement (Centimeters) 43.0 Comments R=43.0 cm 1 Location 10 cm inferior L patella Measurement (Centimeters) 40.7 Comments R=38.6 cm Incisional Assessment Incision Appearance/Comments Small scope incisions well healing, C, D, I PT-OP-K Range of Motion Start: 10/17/23 17:40 Freq: Status: Active Protocol: Document 10/17/23 15:15 DCW (Rec: 10/18/23 08:39 DCW [id number]) Knee Goniometric Range of Motion Knee Right Patient Position Supine Flexion Active (degrees) 134 Hyper-Extension Active 2 Left Patient Position Supine Flexion Active (degrees) 114 Hyper-Extension Active 1 PT-OP-L Special Tests Start: 10/17/23 17:40 Freq: Status: Active Protocol: Document 10/17/23 15:15 DCW (Rec: 10/18/23 08:39 DCW [id number]) Special Tests Knee Special Tests Varus- 25 Degrees Test Results Negative Valgus- 25 Degrees Test Results Negative Posterior Draw Test Results Negative Anterior Draw Test Results Negative PT-OP-M Strength Start: 10/17/23 17:40 Freq: Status: Active Protocol: Document 10/17/23 15:15 DCW (Rec: 10/18/23 08:39 DCW [id number]) Knee Strength Knee Manual Muscle Testing Left Flexion (S2) 4 Good Extension (L3) 4- Good- PT-OP-Q Treatments Start: 10/17/23 17:40 Freq: Status: Active Protocol: Document 10/24/23 09:45 SW (Rec: 10/24/23 10:33 SW [id number]) Cardio Equipment Recumbent Bicycle Duration (Minutes) 5 Resistance 6 Seat Position 7 Other Notes pain down anterior calderon Gym Equipment Shuttle Recovery Unilateral Squats Details L Resistance 25# Shuttle Recovery Platform Stable Reps/Time >90 degrees Bilateral Squats Resistance 75# (3 old) Shuttle Recovery Platform Stable Reps/Time >90 Therapeutic Ball Hip flexion Exercise Details Resisted hip/knee flexion Ball Size/Color Red - 55 cm Lv 3 T-band Body Position Supine Comments pain free Therapeutic Exercises Standing Exercises Mini squat Standing Exercise Name Mini squat Side bilateral Resistance AROM Equipment Used // bars Comments >90 degrees per pt protocol TKE Standing Exercise Name TKE Side left Resistance Lv 3 Neuro Re-Education Treatment Balance Activities Tandem Details Tandem Stance Surface Stable>foam Foam Details Foam stance Surface AirEx Equipment // bars Comments WBOS>NBOS PT-OP-R Modalities Start: 10/21/23 10:22 Freq: Status: Active Protocol: Document 10/24/23 09:45 SW (Rec: 10/24/23 10:33 SW [id number]) Hot Pack/Cold Pack Treatment Cold Pack Location L knee Patient Position Hooklying Patient Tolerance Good Comments x15 min PT-OP-T Assessment and Plan Start: 10/17/23 17:40 Freq: Status: Active Protocol: Document 10/24/23 09:45 (Rec: 10/24/23 10:33 [id number]) Physical Therapy Assessment Goals Three Impairment Left knee extension MMT 4-/5 Impairment Difficult to lift weighted objects ie horse tac equipment . Materials Recycler Goal (LTG) Pt to exhibit increased knee extension strength to at least 4+/5 in order to improve ability to perform fullest squat allowable per post-op protocol LTG Duration 12/17/23 Two Impairment Left knee ROM flexion limitation (ROM -1?-114?) Impairment Difficult reaching back Senior Living Goal (LTG) Pt to increase left knee flexion to >129? in order to return to prior functional levels with gym activities LTG Duration 12/17/23 One Impairment Pt does not have an appropriate home exercise program Impairment Difficult to reaching into cupboards to put dishes away. Short Term Goal (STG) Pt to be independent and compliant with an appropriate HEP STG Duration 11/16/23 Assessment Summary Assessment Pt unable to do HEP this week d/t illness. Reviewed HEP exercises. Patient reports still in pain, audible noise present throughout session today. Progressed stability exercises today, pt challenged , ankle strategy engaged. Physical Therapy Plan Frequency and Duration Frequency of Treatment 2x/Week Plan of Care Start Date 10/17/23 Plan of Care End Date 12/17/23 Therapeutic Interventions Therapeutic Interventions Balance Training,Coordination Training,Gait Training,Home Exercise Program,Joint Mobilizations,Manual Therapy, Neuromuscular Re-education, Patient/Caregiver Education, Self-Care/Home Management,Soft Tissue Mobilization, Therapeutic Activities, Therapeutic Exercises Next Visit Focus/Plan Next Note Type Treatment Note Next Visit Plan LE strengthening, gait training, knee ROM
--- NOTE | 2023-10-29 09:56 | PT.OTN ---
Current Diagnoses Stiffness of left knee, not elsewhere classified (10/24/23) Muscle weakness (generalized) (10/24/23) Chondromalacia, left knee (10/24/23) Other abnormalities of gait and mobility (10/24/23) Physical Therapy Treatment Note PT-OP-A Visit Information Start: 10/17/23 17:40 Freq: Status: Active Protocol: Document 10/24/23 09:45 SW (Rec: 10/24/23 10:33 SW [id number]) Out-Patient Physical Therapy Visit Information Visit Information Visit Type Treatment Note Visit Start Time 09:45 Visit Stop Time 10:25 Visit Number 3 Number of CLINICAL LAB SPECIALIST Visits 1 Precautions Precautions Post-op protocol: Weeks 6-10 Goals: -Full ROM -Increased hamstring and quad strength -Continue general conditioning Plan: -Full symmetric ROM -Normal Gait -Continue with strengthening -Squats okay to 90? PT-OP-B Current Condition Start: 10/17/23 17:40 Freq: Status: Active Protocol: Document 10/17/23 15:15 DCW (Rec: 10/17/23 17:53 DCW [id number]) Current Condition History of Current Condition Onset Date 09/03/23 Current Complaints s/p surgical repair of complex left meniscus injury History of Current Condition Pt is a 58 year old female presenting to skilled therapy six weeks s/p surgical repair of left complex meniscus injury. Pt notes she has had prior meniscus surgeries bilaterally, but this was by far the most complex, and has been a more difficult recovery so far. Additionally, pt notes that she has been experiencing nerve issues in her left leg, mainly from lateral knee across anterior calderon to medial ankle, feeling of burning, cold, and muted sensation. Pt reports that she was 50% weight bearing for 5 weeks post op with use of axillary crutches. Pt reports she was not provided with a knee immobilizer after surgery . Has been compliant with suggested HEP post-op. Reports that she feels her walking has been alright, but does note increased pain with most weight bearing. Uses bike at home, which typically she is able to tolerate very well. Has difficulty with squats, completely unable to kneel at this time. Feels an increased knee pain with descending steps. PT-OP-C Subjective Start: 10/17/23 17:40 Freq: Status: Active Protocol: Document 10/24/23 09:45 SW (Rec: 10/24/23 10:33 SW [id number]) OP-PT Subjective Patient Comments Patient Comments Pt reports being ill, has not done any PT exercises since last session. Pt reports extra hard to get moving in the morning, cold makes a difference. Pt reports this is the hardest recovery from surgeries that pt has had. PT-OP-F Manual Assessment Start: 10/17/23 17:40 Freq: Status: Active Protocol: Document 10/17/23 15:15 DCW (Rec: 10/18/23 08:39 DCW [id number]) Manual Assessments Soft Tissue Assessment Soft Tissue Mobility Assessment Increased tone, tenderness to palpation 2/: Pain with wincing along left distal hamstrings and proximal calf. Mild left knee joint effusion PT-OP-G Mobility & Gait Start: 10/17/23 17:40 Freq: Status: Active Protocol: Document 10/17/23 15:15 DCW (Rec: 10/18/23 08:39 DCW [id number]) OP Gait Assessment Gait Gait Assistance Required: Independent Assistive Devices Assistive Device None Gait Deviations General Gait Pattern Antalgic Comments Gait Comments Mild altalgic gait Stair Climbing Evaluation Technique/Endurance Stair Climbing Direction Ascend and Descend Stair Climbing Technique Step Over Step Comments Stair Climbing Comments Pain with very slight uncontrolled descent when lowering with left leg PT-OP-J Posture/Palpation/Skin Start: 10/17/23 17:40 Freq: Status: Active Protocol: Document 10/17/23 15:15 DCW (Rec: 10/18/23 08:39 DCW [id number]) Skin Assessment Circumference Measurement 3 Location 10 cm superior L patella Measurement (Centimeters) 48.6 Comments R=48.1 cm 2 Location L Joint line Measurement (Centimeters) 43.0 Comments R=43.0 cm 1 Location 10 cm inferior L patella Measurement (Centimeters) 40.7 Comments R=38.6 cm Incisional Assessment Incision Appearance/Comments Small scope incisions well healing, C, D, I PT-OP-K Range of Motion Start: 10/17/23 17:40 Freq: Status: Active Protocol: Document 10/17/23 15:15 DCW (Rec: 10/18/23 08:39 DCW [id number]) Knee Goniometric Range of Motion Knee Right Patient Position Supine Flexion Active (degrees) 134 Hyper-Extension Active 2 Left Patient Position Supine Flexion Active (degrees) 114 Hyper-Extension Active 1 PT-OP-L Special Tests Start: 10/17/23 17:40 Freq: Status: Active Protocol: Document 10/17/23 15:15 DCW (Rec: 10/18/23 08:39 DCW [id number]) Special Tests Knee Special Tests Varus- 25 Degrees Test Results Negative Valgus- 25 Degrees Test Results Negative Posterior Draw Test Results Negative Anterior Draw Test Results Negative PT-OP-M Strength Start: 10/17/23 17:40 Freq: Status: Active Protocol: Document 10/17/23 15:15 DCW (Rec: 10/18/23 08:39 DCW [id number]) Knee Strength Knee Manual Muscle Testing Left Flexion (S2) 4 Good Extension (L3) 4- Good- PT-OP-Q Treatments Start: 10/17/23 17:40 Freq: Status: Active Protocol: Document 10/24/23 09:45 SW (Rec: 10/24/23 10:33 SW [id number]) Cardio Equipment Recumbent Bicycle Duration (Minutes) 5 Resistance 6 Seat Position 7 Other Notes pain down anterior calderon Gym Equipment Shuttle Recovery Unilateral Squats Details L Resistance 25# Shuttle Recovery Platform Stable Reps/Time <90 degrees per pt protocol Bilateral Squats Resistance 75# (3 old) Shuttle Recovery Platform Stable Reps/Time <90 degrees per pt protocol Therapeutic Ball Hip flexion Exercise Details Resisted hip/knee flexion Ball Size/Color Red - 55 cm Lv 3 T-band Body Position Supine Comments pain free Therapeutic Exercises Standing Exercises Mini squat Standing Exercise Name Mini squat Side bilateral Resistance AROM Equipment Used // bars Comments <90 degrees per pt protocol TKE Standing Exercise Name TKE Side left Resistance Lv 3 Neuro Re-Education Treatment Balance Activities Tandem Details Tandem Stance Surface Stable>foam Foam Details Foam stance Surface AirEx Equipment // bars Comments WBOS>NBOS PT-OP-R Modalities Start: 10/21/23 10:22 Freq: Status: Active Protocol: Document 10/24/23 09:45 SW (Rec: 10/24/23 10:33 SW [id number]) Hot Pack/Cold Pack Treatment Cold Pack Location L knee Patient Position Hooklying Patient Tolerance Good Comments x15 min PT-OP-T Assessment and Plan Start: 10/17/23 17:40 Freq: Status: Active Protocol: Document 10/24/23 09:45 SW (Rec: 10/24/23 10:33 [id number]) Physical Therapy Assessment Goals Three Impairment Left knee extension MMT 4-/5 Impairment Difficult to lift weighted objects ie horse tac equipment . Field Map Technician Goal (LTG) Pt to exhibit increased knee extension strength to at least 4+/5 in order to improve ability to perform fullest squat allowable per post-op protocol LTG Duration 12/17/23 Two Impairment Left knee ROM flexion limitation (ROM -1?-114?) Impairment Difficult reaching back Fdc Goal (LTG) Pt to increase left knee flexion to >129? in order to return to prior functional levels with gym activities LTG Duration 12/17/23 One Impairment Pt does not have an appropriate home exercise program Impairment Difficult to reaching into cupboards to put dishes away. Short Term Goal (STG) Pt to be independent and compliant with an appropriate HEP STG Duration 11/16/23 Assessment Summary Assessment Pt unable to do HEP this week d/t illness. Reviewed HEP exercises. Patient reports still in pain, audible noise present throughout session today. Progressed stability exercises today, pt challenged , ankle strategy engaged. Physical Therapy Plan Frequency and Duration Frequency of Treatment 2x/Week Plan of Care Start Date 10/17/23 Plan of Care End Date 12/17/23 Therapeutic Interventions Therapeutic Interventions Balance Training,Coordination Training,Gait Training,Home Exercise Program,Joint Mobilizations,Manual Therapy, Neuromuscular Re-education, Patient/Caregiver Education, Self-Care/Home Management,Soft Tissue Mobilization, Therapeutic Activities, Therapeutic Exercises Next Visit Focus/Plan Next Note Type Treatment Note Next Visit Plan LE strengthening, gait training, knee ROM
--- NOTE | 2023-10-30 10:32 | PT.OTN ---
Current Diagnoses Stiffness of left knee, not elsewhere classified (10/30/23) Muscle weakness (generalized) (10/30/23) Chondromalacia, left knee (10/30/23) Other abnormalities of gait and mobility (10/30/23) Physical Therapy Treatment Note PT-OP-A Visit Information Start: 10/17/23 17:40 Freq: Status: Active Protocol: Document 10/30/23 09:45 DCW (Rec: 10/30/23 10:32 DCW [id number]) Out-Patient Physical Therapy Visit Information Visit Information Visit Type Treatment Note Visit Start Time 09:45 Visit Stop Time 10:25 Visit Number 4 Number of ONCOLOGY CONSULTANT Visits 0 Precautions Precautions Post-op protocol: Weeks 6-10 Goals: -Full ROM -Increased hamstring and quad strength -Continue general conditioning Plan: -Full symmetric ROM -Normal Gait -Continue with strengthening -Squats okay to 90? PT-OP-B Current Condition Start: 10/17/23 17:40 Freq: Status: Active Protocol: Document 10/17/23 15:15 DCW (Rec: 10/17/23 17:53 DCW [id number]) Current Condition History of Current Condition Onset Date 09/03/23 Current Complaints s/p surgical repair of complex left meniscus injury History of Current Condition Pt is a 58 year old female presenting to skilled therapy six weeks s/p surgical repair of left complex meniscus injury. Pt notes she has had prior meniscus surgeries bilaterally, but this was by far the most complex, and has been a more difficult recovery so far. Additionally, pt notes that she has been experiencing nerve issues in her left leg, mainly from lateral knee across anterior calderon to medial ankle, feeling of burning, cold, and muted sensation. Pt reports that she was 50% weight bearing for 5 weeks post op with use of axillary crutches. Pt reports she was not provided with a knee immobilizer after surgery . Has been compliant with suggested HEP post-op. Reports that she feels her walking has been alright, but does note increased pain with most weight bearing. Uses bike at home, which typically she is able to tolerate very well. Has difficulty with squats, completely unable to kneel at this time. Feels an increased knee pain with descending steps. PT-OP-C Subjective Start: 10/17/23 17:40 Freq: Status: Active Protocol: Document 10/30/23 09:45 DCW (Rec: 10/30/23 10:32 DCW [id number]) OP-PT Subjective Patient Comments Patient Comments Pt reports she has increased pain in hyperextension along medial joint line, and still notes swelling, but otherwise it's actually feeling pretty good. PT-OP-F Manual Assessment Start: 10/17/23 17:40 Freq: Status: Active Protocol: Document 10/17/23 15:15 DCW (Rec: 10/18/23 08:39 DCW [id number]) Manual Assessments Soft Tissue Assessment Soft Tissue Mobility Assessment Increased tone, tenderness to palpation 2/: Pain with wincing along left distal hamstrings and proximal calf. Mild left knee joint effusion PT-OP-G Mobility & Gait Start: 10/17/23 17:40 Freq: Status: Active Protocol: Document 10/17/23 15:15 DCW (Rec: 10/18/23 08:39 DCW [id number]) OP Gait Assessment Gait Gait Assistance Required: Independent Assistive Devices Assistive Device None Gait Deviations General Gait Pattern Antalgic Comments Gait Comments Mild altalgic gait Stair Climbing Evaluation Technique/Endurance Stair Climbing Direction Ascend and Descend Stair Climbing Technique Step Over Step Comments Stair Climbing Comments Pain with very slight uncontrolled descent when lowering with left leg PT-OP-J Posture/Palpation/Skin Start: 10/17/23 17:40 Freq: Status: Active Protocol: Document 10/17/23 15:15 DCW (Rec: 10/18/23 08:39 DCW [id number]) Skin Assessment Circumference Measurement 3 Location 10 cm superior L patella Measurement (Centimeters) 48.6 Comments R=48.1 cm 2 Location L Joint line Measurement (Centimeters) 43.0 Comments R=43.0 cm 1 Location 10 cm inferior L patella Measurement (Centimeters) 40.7 Comments R=38.6 cm Incisional Assessment Incision Appearance/Comments Small scope incisions well healing, C, D, I PT-OP-K Range of Motion Start: 10/17/23 17:40 Freq: Status: Active Protocol: Document 10/17/23 15:15 DCW (Rec: 10/18/23 08:39 DCW [id number]) Knee Goniometric Range of Motion Knee Right Patient Position Supine Flexion Active (degrees) 134 Hyper-Extension Active 2 Left Patient Position Supine Flexion Active (degrees) 114 Hyper-Extension Active 1 PT-OP-L Special Tests Start: 10/17/23 17:40 Freq: Status: Active Protocol: Document 10/17/23 15:15 DCW (Rec: 10/18/23 08:39 DCW [id number]) Special Tests Knee Special Tests Varus- 25 Degrees Test Results Negative Valgus- 25 Degrees Test Results Negative Posterior Draw Test Results Negative Anterior Draw Test Results Negative PT-OP-M Strength Start: 10/17/23 17:40 Freq: Status: Active Protocol: Document 10/17/23 15:15 DCW (Rec: 10/18/23 08:39 DCW [id number]) Knee Strength Knee Manual Muscle Testing Left Flexion (S2) 4 Good Extension (L3) 4- Good- PT-OP-Q Treatments Start: 10/17/23 17:40 Freq: Status: Active Protocol: Document 10/30/23 09:45 DCW (Rec: 10/30/23 10:32 DCW [id number]) Cardio Equipment Recumbent Bicycle Duration (Minutes) 5 Resistance 6 Seat Position 5 Gym Equipment Shuttle Balance Red Details WBOS, Staggered, Lateral Therapeutic Exercises Standing Exercises Step Lunge Standing Exercise Name Mini lunge to BOSU Side bilateral Manual Therapy Treatment Joint Mobilizations Patella Joint Patella Direction Inf<->Sup Grade III Body Position Supine Knee Joint L knee Direction P<->A Grade III Body Position Hooklying PT-OP-R Modalities Start: 10/21/23 10:22 Freq: Status: Active Protocol: Document 10/24/23 09:45 SW (Rec: 10/24/23 10:33 SW [id number]) Hot Pack/Cold Pack Treatment Cold Pack Location L knee Patient Position Hooklying Patient Tolerance Good Comments x15 min PT-OP-T Assessment and Plan Start: 10/17/23 17:40 Freq: Status: Active Protocol: Document 10/30/23 09:45 DCW (Rec: 10/30/23 10:32 DCW [id number]) Physical Therapy Assessment Impairments Impairments Activity Tolerance,Functional Activities,Functional Mobility ,Gait,Pain,ROM,Soft Tissue Mobility,Strength,Tone Goals Three Impairment Left knee extension MMT 4-/5 Vice President Of Advertising Goal (LTG) Pt to exhibit increased knee extension strength to at least 4+/5 in order to improve ability to perform fullest squat allowable per post-op protocol LTG Duration 12/17/23 Two Impairment Left knee ROM flexion limitation (ROM -1?-114?) Vice President Of Advertising Goal (LTG) Pt to increase left knee flexion to >129? in order to return to prior functional levels with gym activities LTG Duration 12/17/23 One Impairment Pt does not have an appropriate home exercise program Short Term Goal (STG) Pt to be independent and compliant with an appropriate HEP STG Duration 11/16/23 Assessment Summary Assessment Spent more time today on joint mobs in effort to help decrease ongoing joint pain. Pt doing well with stabilization challenges. Physical Therapy Plan Frequency and Duration Frequency of Treatment 2x/Week Plan of Care Start Date 10/17/23 Plan of Care End Date 12/17/23 Therapeutic Interventions Therapeutic Interventions Balance Training,Coordination Training,Gait Training,Home Exercise Program,Joint Mobilizations,Manual Therapy, Neuromuscular Re-education, Patient/Caregiver Education, Self-Care/Home Management,Soft Tissue Mobilization, Therapeutic Activities, Therapeutic Exercises Next Visit Focus/Plan Next Note Type Treatment Note Next Visit Plan LE strengthening, gait training, knee ROM
--- NOTE | 2023-11-04 12:21 | PT-OP ANOTE ---
Pt no-showed to 11/04/23 appointment. Therapist phoned pt, pt admitted it just completely slipped my mind after night of poor sleep. Was very apologetic. Pt verbally noted next scheduled appointment 11/06/23.
--- NOTE | 2023-11-07 15:17 | PT.OTN ---
Current Diagnoses Stiffness of left knee, not elsewhere classified (11/07/23) Muscle weakness (generalized) (11/07/23) Chondromalacia, left knee (11/07/23) Other abnormalities of gait and mobility (11/07/23) Physical Therapy Treatment Note PT-OP-A Visit Information Start: 10/17/23 17:40 Freq: Status: Active Protocol: Document 11/07/23 14:30 DCW (Rec: 11/07/23 15:17 DCW [id number]) Out-Patient Physical Therapy Visit Information Visit Information Visit Type Treatment Note Visit Start Time 14:30 Visit Stop Time 15:05 Visit Number 5 Number of MICROBIOLOGICAL ANALYST Visits 0 Evaluation Information Evaluation Date 10/17/23 Precautions Precautions Post-op protocol: Weeks 6-10 Goals: -Full ROM -Increased hamstring and quad strength -Continue general conditioning Plan: -Full symmetric ROM -Normal Gait -Continue with strengthening -Squats okay to 90? PT-OP-B Current Condition Start: 10/17/23 17:40 Freq: Status: Active Protocol: Document 10/17/23 15:15 DCW (Rec: 10/17/23 17:53 DCW [id number]) Current Condition History of Current Condition Onset Date 09/03/23 Current Complaints s/p surgical repair of complex left meniscus injury History of Current Condition Pt is a 58 year old female presenting to skilled therapy six weeks s/p surgical repair of left complex meniscus injury. Pt notes she has had prior meniscus surgeries bilaterally, but this was by far the most complex, and has been a more difficult recovery so far. Additionally, pt notes that she has been experiencing nerve issues in her left leg, mainly from lateral knee across anterior calderon to medial ankle, feeling of burning, cold, and muted sensation. Pt reports that she was 50% weight bearing for 5 weeks post op with use of axillary crutches. Pt reports she was not provided with a knee immobilizer after surgery . Has been compliant with suggested HEP post-op. Reports that she feels her walking has been alright, but does note increased pain with most weight bearing. Uses bike at home, which typically she is able to tolerate very well. Has difficulty with squats, completely unable to kneel at this time. Feels an increased knee pain with descending steps. PT-OP-C Subjective Start: 10/17/23 17:40 Freq: Status: Active Protocol: Document 11/07/23 14:30 DCW (Rec: 11/07/23 15:17 DCW [id number]) OP-PT Subjective Patient Comments Patient Comments I may have overdone it. Pt notes she was doing yard work and mulching. Had follow-up with her surgeon yesterday, he felt she was doing well, still no running or jumping. PT-OP-F Manual Assessment Start: 10/17/23 17:40 Freq: Status: Active Protocol: Document 10/17/23 15:15 DCW (Rec: 10/18/23 08:39 DCW [id number]) Manual Assessments Soft Tissue Assessment Soft Tissue Mobility Assessment Increased tone, tenderness to palpation 2/4: Pain with wincing along left distal hamstrings and proximal calf. Mild left knee joint effusion PT-OP-G Mobility & Gait Start: 10/17/23 17:40 Freq: Status: Active Protocol: Document 10/17/23 15:15 DCW (Rec: 10/18/23 08:39 DCW [id number]) OP Gait Assessment Gait Gait Assistance Required: Independent Assistive Devices Assistive Device None Gait Deviations General Gait Pattern Antalgic Comments Gait Comments Mild altalgic gait Stair Climbing Evaluation Technique/Endurance Stair Climbing Direction Ascend and Descend Stair Climbing Technique Step Over Step Comments Stair Climbing Comments Pain with very slight uncontrolled descent when lowering with left leg PT-OP-J Posture/Palpation/Skin Start: 10/17/23 17:40 Freq: Status: Active Protocol: Document 10/17/23 15:15 DCW (Rec: 10/18/23 08:39 DCW [id number]) Skin Assessment Circumference Measurement 3 Location 10 cm superior L patella Measurement (Centimeters) 48.6 Comments R=48.1 cm 2 Location L Joint line Measurement (Centimeters) 43.0 Comments R=43.0 cm 1 Location 10 cm inferior L patella Measurement (Centimeters) 40.7 Comments R=38.6 cm Incisional Assessment Incision Appearance/Comments Small scope incisions well healing, C, D, I PT-OP-K Range of Motion Start: 10/17/23 17:40 Freq: Status: Active Protocol: Document 10/17/23 15:15 DCW (Rec: 10/18/23 08:39 DCW [id number]) Knee Goniometric Range of Motion Knee Right Patient Position Supine Flexion Active (degrees) 134 Hyper-Extension Active 2 Left Patient Position Supine Flexion Active (degrees) 114 Hyper-Extension Active 1 PT-OP-L Special Tests Start: 10/17/23 17:40 Freq: Status: Active Protocol: Document 10/17/23 15:15 DCW (Rec: 10/18/23 08:39 DCW [id number]) Special Tests Knee Special Tests Varus- 25 Degrees Test Results Negative Valgus- 25 Degrees Test Results Negative Posterior Draw Test Results Negative Anterior Draw Test Results Negative PT-OP-M Strength Start: 10/17/23 17:40 Freq: Status: Active Protocol: Document 10/17/23 15:15 DCW (Rec: 10/18/23 08:39 DCW [id number]) Knee Strength Knee Manual Muscle Testing Left Flexion (S2) 4 Good Extension (L3) 4- Good- PT-OP-Q Treatments Start: 10/17/23 17:40 Freq: Status: Active Protocol: Document 11/07/23 14:30 DCW (Rec: 11/07/23 15:17 DCW [id number]) Cardio Equipment Recumbent Bicycle Duration (Minutes) 5 Resistance 7 Seat Position 5 Gym Equipment Shuttle Balance Red Details WBOS, Staggered Manual Therapy Treatment Taping L knee Body Location L knee Treatment Focus Edema taping, 2 5-strips Type of Tape Kinesio Tape PT-OP-R Modalities Start: 10/21/23 10:22 Freq: Status: Active Protocol: Document 10/24/23 09:45 SW (Rec: 10/24/23 10:33 SW [id number]) Hot Pack/Cold Pack Treatment Cold Pack Location L knee Patient Position Hooklying Patient Tolerance Good Comments x15 min PT-OP-T Assessment and Plan Start: 10/17/23 17:40 Freq: Status: Active Protocol: Document 11/07/23 14:30 DCW (Rec: 11/07/23 15:17 DCW [id number]) Physical Therapy Assessment Impairments Impairments Activity Tolerance,Functional Activities,Functional Mobility ,Gait,Pain,ROM,Soft Tissue Mobility,Strength,Tone Goals Three Impairment Left knee extension MMT 4-/5 Scientific Illustrator Goal (LTG) Pt to exhibit increased knee extension strength to at least 4+/5 in order to improve ability to perform fullest squat allowable per post-op protocol LTG Duration 12/17/23 Two Impairment Left knee ROM flexion limitation (ROM -1?-114?) Scientific Illustrator Goal (LTG) Pt to increase left knee flexion to >129? in order to return to prior functional levels with gym activities LTG Duration 12/17/23 One Impairment Pt does not have an appropriate home exercise program Short Term Goal (STG) Pt to be independent and compliant with an appropriate HEP STG Duration 11/16/23 Assessment Summary Assessment Treatment session today very limited secondary to severe swelling and worsening pain after pt spent the past 1.5 days doing yard work, including mulching. Pt spent a lot of time pivoting on surgical leg. Ended session early due to limitations. Advised pt to limit activity this weekend and continue to ice. Trial of anti-edema K- tape today. Physical Therapy Plan Frequency and Duration Frequency of Treatment 2x/Week Plan of Care Start Date 10/17/23 Plan of Care End Date 12/17/23 Therapeutic Interventions Therapeutic Interventions Balance Training,Coordination Training,Gait Training,Home Exercise Program,Joint Mobilizations,Manual Therapy, Neuromuscular Re-education, Patient/Caregiver Education, Self-Care/Home Management,Soft Tissue Mobilization, Therapeutic Activities, Therapeutic Exercises Next Visit Focus/Plan Next Note Type Treatment Note Next Visit Plan LE strengthening, gait training, knee ROM
--- NOTE | 2023-11-11 09:45 | PT.OTN ---
Current Diagnoses Stiffness of left knee, not elsewhere classified (11/11/23) Muscle weakness (generalized) (11/11/23) Chondromalacia, left knee (11/11/23) Other abnormalities of gait and mobility (11/11/23) Physical Therapy Treatment Note PT-OP-A Visit Information Start: 10/17/23 17:40 Freq: Status: Active Protocol: Document 11/11/23 09:07 SP (Rec: 11/11/23 09:48 SP [id number]) Out-Patient Physical Therapy Visit Information Visit Information Visit Type Treatment Note Visit Start Time 09:07 Visit Stop Time 09:45 Visit Number 6 Number of HARNESS WORKER Visits 1 Evaluation Information Evaluation Date 10/17/23 Precautions Precautions Post-op protocol (09/03/23): Weeks 6-10 Goals: -Full ROM -Increased hamstring and quad strength -Continue general conditioning Plan: -Full symmetric ROM -Normal Gait -Continue with strengthening -Squats okay to 90? PT-OP-B Current Condition Start: 10/17/23 17:40 Freq: Status: Active Protocol: Document 10/17/23 15:15 DCW (Rec: 10/17/23 17:53 DCW [id number]) Current Condition History of Current Condition Onset Date 09/03/23 Current Complaints s/p surgical repair of complex left meniscus injury History of Current Condition Pt is a 58 year old female presenting to skilled therapy six weeks s/p surgical repair of left complex meniscus injury. Pt notes she has had prior meniscus surgeries bilaterally, but this was by far the most complex, and has been a more difficult recovery so far. Additionally, pt notes that she has been experiencing nerve issues in her left leg, mainly from lateral knee across anterior calderon to medial ankle, feeling of burning, cold, and muted sensation. Pt reports that she was 50% weight bearing for 5 weeks post op with use of axillary crutches. Pt reports she was not provided with a knee immobilizer after surgery . Has been compliant with suggested HEP post-op. Reports that she feels her walking has been alright, but does note increased pain with most weight bearing. Uses bike at home, which typically she is able to tolerate very well. Has difficulty with squats, completely unable to kneel at this time. Feels an increased knee pain with descending steps. PT-OP-C Subjective Start: 10/17/23 17:40 Freq: Status: Active Protocol: Document 11/11/23 09:07 SP (Rec: 11/11/23 09:48 SP [id number]) OP-PT Subjective Patient Comments Patient Comments Pt 10 weeks s/p: reports responded better to Ktaping, took off yesterday but not sure if helped with swelling or not, is alot less today than at last appt. When she walks and finds almost hyperextending just before heel strike. PT-OP-F Manual Assessment Start: 10/17/23 17:40 Freq: Status: Active Protocol: Document 10/17/23 15:15 DCW (Rec: 10/18/23 08:39 DCW [id number]) Manual Assessments Soft Tissue Assessment Soft Tissue Mobility Assessment Increased tone, tenderness to palpation 2/4: Pain with wincing along left distal hamstrings and proximal calf. Mild left knee joint effusion PT-OP-G Mobility & Gait Start: 10/17/23 17:40 Freq: Status: Active Protocol: Document 10/17/23 15:15 DCW (Rec: 10/18/23 08:39 DCW [id number]) OP Gait Assessment Gait Gait Assistance Required: Independent Assistive Devices Assistive Device None Gait Deviations General Gait Pattern Antalgic Comments Gait Comments Mild altalgic gait Stair Climbing Evaluation Technique/Endurance Stair Climbing Direction Ascend and Descend Stair Climbing Technique Step Over Step Comments Stair Climbing Comments Pain with very slight uncontrolled descent when lowering with left leg PT-OP-J Posture/Palpation/Skin Start: 10/17/23 17:40 Freq: Status: Active Protocol: Document 10/17/23 15:15 DCW (Rec: 10/18/23 08:39 DCW [id number]) Skin Assessment Circumference Measurement 3 Location 10 cm superior L patella Measurement (Centimeters) 48.6 Comments R=48.1 cm 2 Location L Joint line Measurement (Centimeters) 43.0 Comments R=43.0 cm 1 Location 10 cm inferior L patella Measurement (Centimeters) 40.7 Comments R=38.6 cm Incisional Assessment Incision Appearance/Comments Small scope incisions well healing, C, D, I PT-OP-K Range of Motion Start: 10/17/23 17:40 Freq: Status: Active Protocol: Document 10/17/23 15:15 DCW (Rec: 10/18/23 08:39 DCW [id number]) Knee Goniometric Range of Motion Knee Right Patient Position Supine Flexion Active (degrees) 134 Hyper-Extension Active 2 Left Patient Position Supine Flexion Active (degrees) 114 Hyper-Extension Active 1 PT-OP-L Special Tests Start: 10/17/23 17:40 Freq: Status: Active Protocol: Document 10/17/23 15:15 DCW (Rec: 10/18/23 08:39 DCW [id number]) Special Tests Knee Special Tests Varus- 25 Degrees Test Results Negative Valgus- 25 Degrees Test Results Negative Posterior Draw Test Results Negative Anterior Draw Test Results Negative PT-OP-M Strength Start: 10/17/23 17:40 Freq: Status: Active Protocol: Document 10/17/23 15:15 DCW (Rec: 10/18/23 08:39 DCW [id number]) Knee Strength Knee Manual Muscle Testing Left Flexion (S2) 4 Good Extension (L3) 4- Good- PT-OP-Q Treatments Start: 10/17/23 17:40 Freq: Status: Active Protocol: Document 11/11/23 09:07 SP (Rec: 11/11/23 09:48 SP [id number]) Cardio Equipment Recumbent Bicycle Duration (Minutes) 6 Resistance 7 Seat Position 5 Other 42 RPMs Gym Equipment Shuttle Recovery Unilateral Squats Details L Resistance 25#> 37# (1n josie) Shuttle Recovery Platform Stable Reps/Time x8 reps before pain Bilateral Squats Resistance 67# ( 2 navy) Shuttle Recovery Platform Stable Reps/Time approx 90 deg xochilt ROM Shuttle Balance Red Details 1. WBOS 2. Staggered Comments 1. wt shift, HTs, EC 3 sec 2. wt shift, HTs- anteromedial L knee pain fidel in back position. Therapeutic Exercises Sitting Exercises HS curl Side left Resistance TB #3 green Reps/Minutes 2x15 Standing Exercises hip abd Side left Resistance 5# leg wt Equipment Used rail contact Reps/Minutes 2x15 Comments no pain, just tiring HS curl Side left Resistance 5# leg wt Equipment Used rail contact Reps/Minutes 2x15 Comments no pain, just muscle tiring challenge Mini squat Standing Exercise Name Mini squat Side bilateral Resistance TB #3 around knees Equipment Used near rail PRN Reps/Minutes 3x10 Comments cued hip hinge buttocks back, knees behind & with toes Manual Therapy Treatment Soft Tissue Mobilization scar mobility Body Location L knee anterior knee Mobilization Type Myofascial Release,Rolling Intensity/Depth Moderate Body Position Supine Comments pressure to tolerance supine and into knee flexion quad Body Location L distal quad and fat pad Mobilization Type Instrument Assisted,Rolling Comments manual and rolling pin: ed self Joint Mobilizations Patella Joint Patella Direction Inf<->Sup Grade III Body Position Supine Comments tracks slightly lateral Knee Joint L knee Direction P<->A Grade III Body Position Hooklying PT-OP-R Modalities Start: 10/21/23 10:22 Freq: Status: Active Protocol: Document 10/24/23 09:45 SW (Rec: 10/24/23 10:33 SW [id number]) Hot Pack/Cold Pack Treatment Cold Pack Location L knee Patient Position Hooklying Patient Tolerance Good Comments x15 min PT-OP-T Assessment and Plan Start: 10/17/23 17:40 Freq: Status: Active Protocol: Document 11/11/23 09:07 SP (Rec: 11/11/23 09:48 SP [id number]) Physical Therapy Assessment Goals Three Impairment Left knee extension MMT 4-/5 Impairment Difficult to lift weighted objects ie horse tac equipment . Halfway Goal (LTG) Pt to exhibit increased knee extension strength to at least 4+/5 in order to improve ability to perform fullest squat allowable per post-op protocol LTG Duration 12/17/23 Two Impairment Left knee ROM flexion limitation (ROM -1?-114?) Impairment Difficult reaching back Assurance Engineer Goal (LTG) Pt to increase left knee flexion to >129? in order to return to prior functional levels with gym activities LTG Duration 12/17/23 One Impairment Pt does not have an appropriate home exercise program Impairment Difficult to reaching into cupboards to put dishes away. Short Term Goal (STG) Pt to be independent and compliant with an appropriate HEP STG Duration 11/16/23 Assessment Summary Assessment Tx focused on hamstring and hip abd strengthening to support stability into heel strike reports is weak. Pt responded well to resisted ther ex to hip abductors and hamstrings with reports muscle challenge, except medial L knee discomfort with lessening after added abd resistance during mini squat. Pt describes discomfort anterior L knee during shuttle balance, especially when in back positioning. Good response to manual and ed carryover to L distal quad, using rolling pin . Physical Therapy Plan Frequency and Duration Frequency of Treatment 2x/Week Plan of Care Start Date 10/17/23 Plan of Care End Date 12/17/23 Therapeutic Interventions Therapeutic Interventions Balance Training,Coordination Training,Gait Training,Home Exercise Program,Joint Mobilizations,Manual Therapy, Neuromuscular Re-education, Patient/Caregiver Education, Self-Care/Home Management,Soft Tissue Mobilization, Therapeutic Activities, Therapeutic Exercises Next Visit Focus/Plan Next Note Type Treatment Note Next Visit Plan Manual as needed, assess swelling L knee, response to HS/hip abd strengthening last tx. POC: LE strengthening, gait training, knee ROM
--- NOTE | 2023-11-13 10:30 | PT.OTN ---
Current Diagnoses Stiffness of left knee, not elsewhere classified (11/13/23) Muscle weakness (generalized) (11/13/23) Chondromalacia, left knee (11/13/23) Other abnormalities of gait and mobility (11/13/23) Physical Therapy Treatment Note PT-OP-A Visit Information Start: 10/17/23 17:40 Freq: Status: Active Protocol: Document 11/13/23 09:46 DCW (Rec: 11/13/23 10:30 DCW [id number]) Out-Patient Physical Therapy Visit Information Visit Information Visit Type Treatment Note Visit Start Time 09:46 Visit Stop Time 10:30 Visit Number 7 Number of DIABETOLOGIST Visits 0 Evaluation Information Evaluation Date 10/17/23 Precautions Precautions Post-op protocol (09/03/23): Weeks 6-10 Goals: -Full ROM -Increased hamstring and quad strength -Continue general conditioning Plan: -Full symmetric ROM -Normal Gait -Continue with strengthening -Squats okay to 90? PT-OP-B Current Condition Start: 10/17/23 17:40 Freq: Status: Active Protocol: Document 10/17/23 15:15 DCW (Rec: 10/17/23 17:53 DCW [id number]) Current Condition History of Current Condition Onset Date 09/03/23 Current Complaints s/p surgical repair of complex left meniscus injury History of Current Condition Pt is a 58 year old female presenting to skilled therapy six weeks s/p surgical repair of left complex meniscus injury. Pt notes she has had prior meniscus surgeries bilaterally, but this was by far the most complex, and has been a more difficult recovery so far. Additionally, pt notes that she has been experiencing nerve issues in her left leg, mainly from lateral knee across anterior calderon to medial ankle, feeling of burning, cold, and muted sensation. Pt reports that she was 50% weight bearing for 5 weeks post op with use of axillary crutches. Pt reports she was not provided with a knee immobilizer after surgery . Has been compliant with suggested HEP post-op. Reports that she feels her walking has been alright, but does note increased pain with most weight bearing. Uses bike at home, which typically she is able to tolerate very well. Has difficulty with squats, completely unable to kneel at this time. Feels an increased knee pain with descending steps. PT-OP-C Subjective Start: 10/17/23 17:40 Freq: Status: Active Protocol: Document 11/13/23 09:46 DCW (Rec: 11/13/23 10:30 DCW [id number]) OP-PT Subjective Patient Comments Patient Comments It feels like when I take a big step, it hyperextends. PT-OP-F Manual Assessment Start: 10/17/23 17:40 Freq: Status: Active Protocol: Document 10/17/23 15:15 DCW (Rec: 10/18/23 08:39 DCW [id number]) Manual Assessments Soft Tissue Assessment Soft Tissue Mobility Assessment Increased tone, tenderness to palpation 2/4: Pain with wincing along left distal hamstrings and proximal calf. Mild left knee joint effusion PT-OP-G Mobility & Gait Start: 10/17/23 17:40 Freq: Status: Active Protocol: Document 10/17/23 15:15 DCW (Rec: 10/18/23 08:39 DCW [id number]) OP Gait Assessment Gait Gait Assistance Required: Independent Assistive Devices Assistive Device None Gait Deviations General Gait Pattern Antalgic Comments Gait Comments Mild altalgic gait Stair Climbing Evaluation Technique/Endurance Stair Climbing Direction Ascend and Descend Stair Climbing Technique Step Over Step Comments Stair Climbing Comments Pain with very slight uncontrolled descent when lowering with left leg PT-OP-J Posture/Palpation/Skin Start: 10/17/23 17:40 Freq: Status: Active Protocol: Document 10/17/23 15:15 DCW (Rec: 10/18/23 08:39 DCW [id number]) Skin Assessment Circumference Measurement 3 Location 10 cm superior L patella Measurement (Centimeters) 48.6 Comments R=48.1 cm 2 Location L Joint line Measurement (Centimeters) 43.0 Comments R=43.0 cm 1 Location 10 cm inferior L patella Measurement (Centimeters) 40.7 Comments R=38.6 cm Incisional Assessment Incision Appearance/Comments Small scope incisions well healing, C, D, I PT-OP-K Range of Motion Start: 10/17/23 17:40 Freq: Status: Active Protocol: Document 10/17/23 15:15 DCW (Rec: 10/18/23 08:39 DCW [id number]) Knee Goniometric Range of Motion Knee Right Patient Position Supine Flexion Active (degrees) 134 Hyper-Extension Active 2 Left Patient Position Supine Flexion Active (degrees) 114 Hyper-Extension Active 1 PT-OP-L Special Tests Start: 10/17/23 17:40 Freq: Status: Active Protocol: Document 10/17/23 15:15 DCW (Rec: 10/18/23 08:39 DCW [id number]) Special Tests Knee Special Tests Varus- 25 Degrees Test Results Negative Valgus- 25 Degrees Test Results Negative Posterior Draw Test Results Negative Anterior Draw Test Results Negative PT-OP-M Strength Start: 10/17/23 17:40 Freq: Status: Active Protocol: Document 10/17/23 15:15 DCW (Rec: 10/18/23 08:39 DCW [id number]) Knee Strength Knee Manual Muscle Testing Left Flexion (S2) 4 Good Extension (L3) 4- Good- PT-OP-Q Treatments Start: 10/17/23 17:40 Freq: Status: Active Protocol: Document 11/13/23 09:46 DCW (Rec: 11/13/23 10:30 DCW [id number]) Gym Equipment Shuttle Recovery Unilateral Squats Details L Resistance 37# (1 navy) Shuttle Recovery Platform Stable Reps/Time x5 reps before pain Bilateral Squats Resistance 67# (2 navy) Shuttle Recovery Platform Stable Therapeutic Exercises Standing Exercises HS curl Side left Resistance 5# leg wt Equipment Used rail contact Reps/Minutes x30 Mini squat Standing Exercise Name Mini squat Side bilateral Resistance TB #3 around knees Equipment Used near rail PRN Reps/Minutes 3x10 Comments cued hip hinge buttocks back, knees behind & with toes TKE Standing Exercise Name TKE Side left Resistance Lv 3 Step Lunge Standing Exercise Name Mini lunge to BOSU Side bilateral Calf stretch Standing Exercise Name Runner's stretch Side left Manual Therapy Treatment Joint Mobilizations Patella Joint Patella Direction Inf<->Sup Grade III Body Position Supine Comments tracks slightly lateral Knee Joint L knee Direction P<->A Grade III Body Position Hooklying PT-OP-R Modalities Start: 10/21/23 10:22 Freq: Status: Active Protocol: Document 10/24/23 09:45 SW (Rec: 10/24/23 10:33 SW [id number]) Hot Pack/Cold Pack Treatment Cold Pack Location L knee Patient Position Hooklying Patient Tolerance Good Comments x15 min PT-OP-T Assessment and Plan Start: 10/17/23 17:40 Freq: Status: Active Protocol: Document 11/13/23 09:46 DCW (Rec: 11/13/23 10:30 DCW [id number]) Physical Therapy Assessment Impairments Impairments Activity Tolerance,Functional Activities,Functional Mobility ,Gait,Pain,ROM,Soft Tissue Mobility,Strength,Tone Goals Three Impairment Left knee extension MMT 4-/5 Chicken Raiser Goal (LTG) Pt to exhibit increased knee extension strength to at least 4+/5 in order to improve ability to perform fullest squat allowable per post-op protocol LTG Duration 12/17/23 Two Impairment Left knee ROM flexion limitation (ROM -1?-114?) Prison Goal (LTG) Pt to increase left knee flexion to >129? in order to return to prior functional levels with gym activities LTG Duration 12/17/23 One Impairment Pt does not have an appropriate home exercise program Short Term Goal (STG) Pt to be independent and compliant with an appropriate HEP STG Duration 11/16/23 Assessment Summary Assessment Improved today vs last week, significant improvement in edema and pain, but still having difficulty with gait. Continue to focus on quad/HS strengthening, hope to improve knee stability and decrease feeling of hyperextension during gait. Physical Therapy Plan Frequency and Duration Frequency of Treatment 2x/Week Plan of Care Start Date 10/17/23 Plan of Care End Date 12/17/23 Therapeutic Interventions Therapeutic Interventions Balance Training,Coordination Training,Gait Training,Home Exercise Program,Joint Mobilizations,Manual Therapy, Neuromuscular Re-education, Patient/Caregiver Education, Self-Care/Home Management,Soft Tissue Mobilization, Therapeutic Activities, Therapeutic Exercises Next Visit Focus/Plan Next Note Type Treatment Note Next Visit Plan Manual as needed, assess swelling L knee, response to HS/hip abd strengthening last tx. POC: LE strengthening, gait training, knee ROM
--- NOTE | 2024-04-14 12:02 | PT.OPDS ---
Current Diagnoses Stiffness of left knee, not elsewhere classified (11/13/23) Muscle weakness (generalized) (11/13/23) Chondromalacia, left knee (11/13/23) Other abnormalities of gait and mobility (11/13/23) Visit Care Team Role Provider Type Kamila Reese DO Family Provider Non-Staff Primary Care Provider Specialty: Family Practice Address: [address] [place] [address], [id number] Email: Jama Tinsley DO Attending Provider Non-Staff Referring Provider Specialty: Orthopedic Surgery Address: [address] [place] [address], [phone] Email: Visit Number Visit Number 7 Discharge Summary PT-OP-B Current Condition Start: 10/17/23 17:40 Freq: Status: Active Protocol: Document 10/17/23 15:15 DCW (Rec: 10/17/23 17:53 DCW [id number]) Current Condition History of Current Condition Onset Date 09/03/23 Current Complaints s/p surgical repair of complex left meniscus injury History of Current Condition Pt is a 58 year old female presenting to skilled therapy six weeks s/p surgical repair of left complex meniscus injury. Pt notes she has had prior meniscus surgeries bilaterally, but this was by far the most complex, and has been a more difficult recovery so far. Additionally, pt notes that she has been experiencing nerve issues in her left leg, mainly from lateral knee across anterior calderon to medial ankle, feeling of burning, cold, and muted sensation. Pt reports that she was 50% weight bearing for 5 weeks post op with use of axillary crutches. Pt reports she was not provided with a knee immobilizer after surgery . Has been compliant with suggested HEP post-op. Reports that she feels her walking has been alright, but does note increased pain with most weight bearing. Uses bike at home, which typically she is able to tolerate very well. Has difficulty with squats, completely unable to kneel at this time. Feels an increased knee pain with descending steps. PT-OP-C Subjective Start: 10/17/23 17:40 Freq: Status: Active Protocol: Document 11/13/23 09:46 DCW (Rec: 11/13/23 10:30 DCW [id number]) OP-PT Subjective Patient Comments Patient Comments It feels like when I take a big step, it hyperextends. PT-OP-F Manual Assessment Start: 10/17/23 17:40 Freq: Status: Active Protocol: Document 10/17/23 15:15 DCW (Rec: 10/18/23 08:39 DCW [id number]) Manual Assessments Soft Tissue Assessment Soft Tissue Mobility Assessment Increased tone, tenderness to palpation 2/4: Pain with wincing along left distal hamstrings and proximal calf. Mild left knee joint effusion PT-OP-G Mobility & Gait Start: 10/17/23 17:40 Freq: Status: Active Protocol: Document 10/17/23 15:15 DCW (Rec: 10/18/23 08:39 DCW [id number]) OP Gait Assessment Gait Gait Assistance Required: Independent Assistive Devices Assistive Device None Gait Deviations General Gait Pattern Antalgic Comments Gait Comments Mild altalgic gait Stair Climbing Evaluation Technique/Endurance Stair Climbing Direction Ascend and Descend Stair Climbing Technique Step Over Step Comments Stair Climbing Comments Pain with very slight uncontrolled descent when lowering with left leg PT-OP-J Posture/Palpation/Skin Start: 10/17/23 17:40 Freq: Status: Active Protocol: Document 10/17/23 15:15 DCW (Rec: 10/18/23 08:39 DCW [id number]) Skin Assessment Circumference Measurement 3 Location 10 cm superior L patella Measurement (Centimeters) 48.6 Comments R=48.1 cm 2 Location L Joint line Measurement (Centimeters) 43.0 Comments R=43.0 cm 1 Location 10 cm inferior L patella Measurement (Centimeters) 40.7 Comments R=38.6 cm Incisional Assessment Incision Appearance/Comments Small scope incisions well healing, C, D, I PT-OP-K Range of Motion Start: 10/17/23 17:40 Freq: Status: Active Protocol: Document 10/17/23 15:15 DCW (Rec: 10/18/23 08:39 DCW [id number]) Knee Goniometric Range of Motion Knee Right Patient Position Supine Flexion Active (degrees) 134 Hyper-Extension Active 2 Left Patient Position Supine Flexion Active (degrees) 114 Hyper-Extension Active 1 PT-OP-L Special Tests Start: 10/17/23 17:40 Freq: Status: Active Protocol: Document 10/17/23 15:15 DCW (Rec: 10/18/23 08:39 DCW [id number]) Special Tests Knee Special Tests Varus- 25 Degrees Test Results Negative Valgus- 25 Degrees Test Results Negative Posterior Draw Test Results Negative Anterior Draw Test Results Negative PT-OP-M Strength Start: 10/17/23 17:40 Freq: Status: Active Protocol: Document 10/17/23 15:15 DCW (Rec: 10/18/23 08:39 DCW [id number]) Knee Strength Knee Manual Muscle Testing Left Flexion (S2) 4 Good Extension (L3) 4- Good- PT-OP-T Assessment and Plan Start: 10/17/23 17:40 Freq: Status: Active Protocol: Document 04/14/24 12:01 DCW (Rec: 04/14/24 12:02 DCW [id number]) Physical Therapy Assessment Assessment Summary Assessment Pt no longer attending Physical Therapy. Pt has not been seen in more than five months. Will require a new referral in order to return in the future. Pt will be discharged at this time. Physical Therapy Plan Discharge Physical Therapy Discharge Reasons No Longer Attending PT
== END 2024-04-21 08:19 | disposition home or self-care (01) ==
LOC: PHYS 09:45
PROVIDERS: Family Provider Family Medicine; PCP Family Medicine; Referring Provider Orthopaedic Surgery; Visit Provider Orthopaedic Surgery
DX: M94.262 Chondromalacia, left knee (principal); R26.89 Other abnormalities of gait and mobility; M62.81 Muscle weakness (generalized); M25.662 Stiffness of left knee, not elsewhere classified
CPT/HCPCS: 97110; 97112; 97140; 97162